=== PATIENT | male | born 1965 | race Caucasian/White ===

== ENCOUNTER 2021-02-07 21:11 | Observation (INO) | payer OTHER, SELFPAY ==
--- NOTE | ~2021-02-07 | CT_ITS ---
EXAMINATION: CT PELVIS WITHOUT CONTRAST CLINICAL INFORMATION: Distended urinary bladder on MRI lumbar spine without contrast. COMPARISON: MRI lumbar spine 02/08/2021. TECHNIQUE: Helical scanning was performed with submillimeter collimation through the pelvis. Sagittal and coronal multiplanar 2-D reconstructions were obtained. This CT examination was performed using dose optimization techniques as appropriate, variously including the following: *Automated exposure control *Adjustment of mA and/or kV according to patient size (this includes techniques or standardized protocols for targeted exams where dose is matched to indication/reason for exam; i.e. extremities or head) *Use of iterative reconstruction technique DLP: 370 mGy-cm FINDINGS: PELVIS: The bladder is moderately distended but improved since the previous MRI scan 02/09/2020. No adenopathy, mass seen. The prostate gland is normal size. No abnormal pelvic or inguinal lymph nodes. OSSEOUS STRUCTURES: There is a old compression fracture L5 vertebra with fragmentation into 2 halves. There are degenerative disc changes L4-L5 and L5/S1 disc level. CT/CT pelvis wo con IMPRESSION: Moderately distended bladder but improved since the previous MRI lumbar spine 02/08/2021.
--- NOTE | ~2021-02-07 | XR_ITS ---
EXAMINATION: CHEST. KUB. CLINICAL INFORMATION: MRI screening COMPARISON: None TECHNIQUE: Chest one view and KUB one view FINDINGS: Chest: The lungs are well-expanded and clear. The heart size and pulmonary vascularity is normal. No gross bony abnormality. No metallic foreign body. KUB. There is applying cold distended urinary bladder likely a neurogenic bladder. No radiopaque metallic foreign body seen. There is scattered stool and gas in colon consistent with mild constipation. No gross bony abnormality. XR/XR KUB IMPRESSION: No radiopaque foreign body seen in the chest or the abdomen. The lungs are clear. Likely neurogenic bladder. Mild constipation.
--- NOTE | ~2021-02-07 | CT_ITS ---
EXAMINATION: CT LUMBAR SPINE WITHOUT CONTRAST CLINICAL INFORMATION: Assess compression fractures. COMPARISON: MRI scan of the lumbar spine 02/08/2021. TECHNIQUE: A noncontrast axial CT scan of the lumbar spine was obtained. Coronal and sagittal reformatted images were generated at the acquisition workstation. This CT examination was performed using dose optimization techniques as appropriate, variously including the following: *Automated exposure control. *Adjustment of mA and/or kV according to patient size (this includes techniques or standardized protocols for targeted exams where dose is matched to indication/reason for exam; i.e. extremities or head). *Use of iterative reconstruction technique. DLP; 553 mGy-cm FINDINGS: There is mild dextroscoliosis in the upper lumbar spine and there is a levoscoliosis in the lower lumbar region. The study redemonstrates a severe compression fracture of the body of L5 which is fragmented, with anterior and posterior protrusion of the residual vertebral body elements. There is some loss of the height of the inferior vertebral body on the right of L4. There is narrowing of the L4-L5 and L5-S1 intervertebral discs. Intervertebral disc heights and the vertebral bodies appear normal at other levels. There are calcifications of the T11-T12 and T12-L1 intervertebral discs. The visualized lower lung kerns appear normal. There is a small hiatal hernia. The visualized retroperitoneal structures are unremarkable. The urinary bladder is incompletely visualized. The bladder wall appears thick and the contents are hyperdense. The density of the kidneys and renal collecting systems is normal for an unenhanced study. SPINAL LEVELS: T12-L1: There is mild bilateral facet arthropathy. Disc contour is normal. There is no central stenosis or foraminal narrowing. L1-L2: There is mild bilateral facet arthropathy. Disc contour is normal. There is no central stenosis or foraminal narrowing. L2-L3: There is mild bilateral facet arthropathy. Disc contour is normal. There is no central stenosis or foraminal narrowing. L3-L4: There is severe bilateral facet arthropathy. There is a small disc protrusion posteriorly. There is no central stenosis or foraminal nerve root impingement. L4-L5: The posterior elements of L4 appear to be dysplastic. There are severe facet arthropathic changes. As described above, there is complete compression of the body of L5 with anterior and posterior protrusion of the residual elements. There is a posterior disc protrusion extending into the right, greater than left, neural foramina with impingement on the exiting right L4 nerve root. There does not appear to be central stenosis. L5-S1: The posterior elements of L5 appear to be unfused in the midline. There is severe facet arthropathy. There is posterior protrusion of the vertebral body particularly on the right, and there is a posterior disc protrusion extending into neural foramina with impingement on the exiting left L5 nerve root. There is no central stenosis. CT/CT lumbar spine wo con IMPRESSION: 1. There is marked compression of the body of L5, demonstrated on prior imaging. The posterior elements of L4 appear to be dysplastic. 2. At L4-L5, there is a posterior disc protrusion extending into the right, greater than left, neural foramina with impingement on the exiting right L4 nerve root. 3. At L5-S1, there is posterior protrusion of the vertebral body particularly on the right and there is a posterior disc protrusion extending into the neural foramina, with impingement on the exiting left L5 nerve root. 4. There is a small hiatal hernia. The urinary bladder wall appears thick and the urinary bladder contents are hyperdense. Recommend CT scan of the pelvis for further assessment.
--- NOTE | ~2021-02-07 | MR_ITS ---
EXAMINATION: MR BRAIN WITHOUT CONTRAST CLINICAL INFORMATION: Right lower extremity weakness. COMPARISON: Head CTA 02/07/2021. TECHNIQUE: Multiplanar, multisequence imaging of the brain was performed without intravenous contrast. FINDINGS: There is no acute infarction, hemorrhage, mass, or extra-axial fluid collection. A few mild nonspecific foci of T2/FLAIR hyperintensity are seen within the cerebral white matter. A small arachnoid cyst is seen within the right cerebellomedullary cistern. The ventricles are normal in size without hydrocephalus. The major arterial flow voids are preserved at the skull base. The extracranial structures are within normal limits. MR/MR head/brain wo con IMPRESSION: No acute intracranial abnormality identified. Specifically, no infarct or mass is seen.
--- NOTE | ~2021-02-07 | XR_ITS ---
EXAMINATION: CHEST. KUB. CLINICAL INFORMATION: MRI screening COMPARISON: None TECHNIQUE: Chest one view and KUB one view FINDINGS: Chest: The lungs are well-expanded and clear. The heart size and pulmonary vascularity is normal. No gross bony abnormality. No metallic foreign body. KUB. There is applying cold distended urinary bladder likely a neurogenic bladder. No radiopaque metallic foreign body seen. There is scattered stool and gas in colon consistent with mild constipation. No gross bony abnormality. XR/XR chest 1V IMPRESSION: No radiopaque foreign body seen in the chest or the abdomen. The lungs are clear. Likely neurogenic bladder. Mild constipation.
--- NOTE | ~2021-02-07 | MR_ITS ---
EXAMINATION: MR LUMBAR SPINE WITHOUT CONTRAST CLINICAL INFORMATION: Right lower extremity weakness. COMPARISON: Lumbar spine radiograph 05/08/2018. TECHNIQUE: MRI of the lumbar spine was obtained using routine sequences without contrast. FINDINGS: There is chronic severe compression deformity of the L5 vertebral body with near complete height loss. There is both ventral and dorsal displacement of fracture fragments with associated significant distortion of the right-sided posterior elements and severe compression of the exiting right L4 nerve root. This flattening of the right aspect of the thecal sac at the L4-L5 level with hemilaminectomy changes noted. The remainder of the vertebral bodies maintain normal height and alignment. Mild Schmorl's nodes are seen at T11-T12 and T12-L1. There is no evidence of acute fracture. The distal spinal cord appears normal. The conus medullaris terminates normally at the L1 level. The extraspinal soft tissues are within normal limits. The urinary bladder is significantly distended. SPINAL LEVELS: L1-L2: Mild disc bulging. No spinal canal or neural foraminal stenosis. L2-L3: No posterior disc abnormality. No spinal canal or neural foraminal stenosis. L3-L4: Disc bulging. Moderate left facet arthropathy. Minimal narrowing of the left neural foramen. L4-L5: As above, there is severe narrowing of the right neural foramen. No spinal canal or left-sided neural foraminal stenosis. L5-S1: Posterior decompression changes. No spinal canal stenosis. Severe narrowing of the left neural foramen with compression of the exiting left L5 nerve root. MR/MR lumbar spine wo con IMPRESSION: Severe compression fracture is seen at L5 with fragmentation and displacement of the fracture fragments resulting in significant distortion at this level. Severe narrowing of the right-sided neural foramen with compression of the exiting right L4 nerve root. The lumbar spine CT may better characterize the abnormal configuration of the cervical spine at this level. At L5-S1 there is severe narrowing of the left neural foramen with compression of the exiting left L5 nerve root.
--- NOTE | ~2021-02-07 | CT_ITS ---
EXAMINATION: CT HEAD WITHOUT CONTRAST (STROKE PROTOCOL) CLINICAL INFORMATION: Stroke protocol. COMPARISON: CT head dated 05/10/2007 TECHNIQUE: Contiguous axial imaging was performed from the skull base to vertex without intravenous administration of contrast. This CT examination was performed using dose optimization techniques as appropriate, variously including the following: *Automated exposure control *Adjustment of mA and/or kV according to patient size (this includes techniques or standardized protocols for targeted exams where dose is matched to indication/reason for exam; i.e. extremities or head) *Use of iterative reconstruction technique DLP: 625 mGy-cm FINDINGS: There is no intracranial hemorrhage, hematoma, or extra-axial fluid collection. The ventricles are normal in size. There is no hydrocephalus, edema, or mass effect. The recinos-white matter differentiation appears symmetric. There is no acute infarct or mass lesion. The calvarium appears intact. There is no pneumocephalus or orbital emphysema. The visualized sinuses and middle ears and mastoid air cells show no significant mucosal thickening. There are no air-fluid levels. CT/CT head for stroke IMPRESSION: No acute intracranial pathology. This critical result was discussed with Dr Mcintyre at 2252 hours on 02.07.2021. It was ascertained that the content and urgency of the report was understood at the time of direct communication.
--- NOTE | ~2021-02-07 | CT_ITS ---
EXAMINATION: CTA OF THE HEAD/NECK CLINICAL INFORMATION: Unable to move right leg. COMPARISON: Head CT from today. TECHNIQUE: A routine non contrast head CT was performed immediately prior. This is followed by a 70 mL bolus of Omnipaque 350. Subsequent multidetector helical imaging was performed of the head and neck. Delayed post contrast imaging was also performed through the head. Multiplanar reformats and MIP were also obtained. Internal carotid artery stenoses are assessed in accordance with NASCET criteria unless otherwise indicated. This CT examination was performed using dose optimization techniques as appropriate, variously including the following: *Automated exposure control *Adjustment of mA and/or kV according to patient size (this includes techniques or standardized protocols for targeted exams where dose is matched to indication/reason for exam; i.e. extremities or head) *Use of iterative reconstruction technique DLP: 1486 mGy-cm. FINDINGS: CT HEAD: There is no evidence of acute intracranial hemorrhage or territorial infarction. No abnormal mass effect or midline shift is seen. Bear to white matter differentiation is well preserved. No extra-axial fluid collections are identified. No suspicious leptomeningeal or parenchymal enhancement on the post-contrast images. No hydrocephalus. No significant volume loss. There is no abnormal attenuation within the brain parenchyma. The osseous structures and soft tissues are normal. The mastoid air cells and visualized portions of the paranasal sinuses are well aerated. CTA NECK: Motion is somewhat limiting on this study. The aortic arch is of normal caliber and the origins of the great vessels are patent without evidence of significant stenosis. The cervical portion of the vertebral arteries are patent bilaterally. No luminal irregularities in the common carotid arteries and the carotid bifurcations are patent bilaterally. The cervical portion of the internal carotid arteries are of normal caliber. The laryngeal structures and pharyngeal mucosal spaces are unremarkable. The oral cavity appears normal. The parotid and submandibular glands are normal. No pathologically enlarged lymph nodes. The thyroid gland is unremarkable. Moderate emphysema noted at the lung apices. No pneumothorax. Spinal alignment is maintained. Mild cervical spondylosis is noted. CTA HEAD: The intradural portion of the vertebral arteries are of normal caliber. The basilar, superior cerebellar, and posterior communicating arteries are patent. The posterior, middle, and anterior cerebral arteries are of normal caliber without evidence of significant luminal irregularity. No definite intracranial aneurysms. CT/CT angio head neck stroke IMPRESSION: 1. No acute intracranial finding. 2. No acute vascular abnormality. No large vessel occlusion or flow-limiting stenosis. This critical result was discussed with Kassie Mcintyre MD by telephone at 02/07/2021 11:13 PM and it was ascertained that the content and urgency of the report was understood at the time of direct communication.
--- NOTE | 2021-02-07 22:37 | ECG_ITS ---
Test Reason : STROKE Blood Pressure : / mmHG Vent. Rate : 081 BPM Atrial Rate : 081 BPM P-R Int : 168 ms QRS Dur : 056 ms QT Int : 354 ms P-R-T Axes : 086 043 073 degrees QTc Int : 411 ms Artifact in tracing Normal sinus rhythm Likely normal EKG When compared with ECG of 02-NOV-2017 15:01, No significant change was found Referred By: Kassie Mcintyre Electronically Signed By:LATESHA SUAREZ
--- NOTE | 2021-02-07 22:39 | ED.NEUROSD ---
HPI - Neuro Symptoms/Deficit General Chief Complaint: Neuro Symptoms/Deficit Stated Complaint: RLL pain s/p fall Time Seen by Provider: 02/07/21 22:27 Source: patient and EMS Mode of arrival: EMS Limitations: no limitations History of Present Illness HPI Narrative: Patient comes to emergency room by EMS. Initially when the patient called EMS, he told them that he has chronic pain, fell. Initially EMS brought him to the triage and patient was waiting for hour and a half to be seen. Then, while patient was in the ED room, patient stated that at 08:30 p.m. he fell because he had suddenly lost mobility and sensation of his right lower extremity. Patient states he was very scared because this has never happened before, complaining that for 2 hours he has been unable to feel his entire leg or move it. Related Data Previous Rx's Medication Instructions Recorded albuterol sulfate 90 mcg/actuation 2 puff INHALATION Q6H PRN 30 Days 01/22/21 aerosol inhaler (ProAir HFA) #18 g bupropion HCl 150 mg 24 hr tablet, 150 mg PO QAM 30 Days #30 tab 01/22/21 extended release buspirone 10 mg tablet 10 mg PO BID 30 Days #60 tab 01/22/21 cyclobenzaprine 5 mg tablet 5 mg PO TID PRN 30 Days #90 tab 01/22/21 doxepin 50 mg capsule 50 mg PO BEDTIME 30 Days #30 cap 01/22/21 fluticasone 113mcg-salmeterol 1 inh INHALATION BID 30 Days #1 ea 01/22/21 14mcg/actuation breath act,powder sensor (AirDuo Digihaler) gabapentin 400 mg capsule 400 mg PO TID 30 Days #90 cap 01/22/21 umeclidinium 62.5 mcg/actuation 1 inh INHALATION DAILY 30 Days #30 01/22/21 blister powder for inhalation ea (Incruse Ellipta) Allergies Allergy/AdvReac Type Severity Reaction Status Date / Time tomato [Tomato] Allergy Severe RASH Unverified 11/06/19 14:38 [facility] Social History Social History Alcohol intake: current Alcohol intake frequency: other Alcohol type: beer Patient Tobacco Use Status: Current everyday Tobacco user Use of substances other than those prescribed or required for medical reasons: No Advance Directives: No Advance Directives Information Provided: No Physical Exam Vital Signs: Vital Signs: Last Vital Signs Temp 98.7 F 02/08/21 00:58 Pulse 72 02/08/21 00:58 Resp 20 02/08/21 00:58 BP 149/80 H 02/08/21 00:58 Pulse Ox 97 02/08/21 00:58 BMI result Body Mass Index 25.1 Course Course Course Narrative: Multiple neuro checks were done as we were preparing the patient to go to the CT scans. Patient was unable to move his left leg or unable to lift his quadricep of the table. Patient states that he cannot feel his upper thigh and the entire right leg at all. CT scan negative. I discussed the patient with Dr. Bryan. Returning to the patient to Babinski sign test, patient did not elicit any response. Then, patient informed us that he has history of chronic foot drop and he can chronically not feel his foot. However, patient is adamant that he is usually at baseline able to lift his entire leg from the bed which he is not able to do at this time. Initially, Dr. Bryan recommended to give tPA. Were preparing tPA, patient stated that the sensation in his legs returned and could move his leg. We stood up the patient, patient was able to walk with a chronic limp due to chronic foot drop on the right side. As patient got back on the bed, patient started crying, complaining that he was scared that he could not move or feel his right leg all over again. Patient denied having any sensation at all in the entire right leg. I spoke with Dr. Bryan again, at this point, this does not look like a stroke, seems that this is more anxiety related. Patient had multiple episodes after the above-mentioned incident. Patient kept going back and forth between being able to move and feel his leg and not being able to feel it at all or move his entire right lower extremity. The only neurological exam that remains constant is the right foot drop. TPA not given Of note, patient asking for anxiety medications. Also, patient was discharged from rehab/alcohol detox 2 days ago Overall, patient is a poor historian, keeps changing his history multiple times regarding to new versus old findings, questionably faking physical exam or disease being secondary to anxiety. Overall, there are no clear neurological findings and physical exam that would indicate a true stroke. This was discussed with Dr. Bryan who agrees to not give tPA at this point. Patient was given Ativan, patient is calm, cooperative, watching TV, not complaining about intermittent loss of sensation or movement of his leg Of note, I believe that the patient gave inaccurate or incomplete history to the EMS crew. Based on the information gathered at the time, EMS is not at fault for not calling over the radio a stroke alert. At this time, patient is moving his leg, has normal sensation, has his chronic footdrop present. Patient will be admitted for possible TIA/anxiety. MDM - Neuro Symptoms/Deficit Lab Data Result diagrams: 02/07/21 22:55 02/07/21 22:55 Labs: Lab Results 02/07/21 02/07/21 02/07/21 Range/Units 22:39 22:40 22:55 WBC 8.0 (4.8-10.8) X10*3/uL RBC 5.06 (4.60-5.80) X10*6/uL Hgb 15.7 (14.0-18.0) g/dl Hct 46.3 (42.0-52.0) % MCV 91.5 (80.0-98.0) fL MCH 31.0 (27.0-33.0) pg MCHC 33.9 (31.0-36.0) g/dl RDW 12.0 (11.0-16.0) % Plt Count 325 (160-400) X10*3/uL MPV 10.1 (9.4-12.4) fL Immature Gran % (Auto) 0.3 (0.0-0.4) % Neut % (Auto) 70.2 (45-73) % Lymph % (Auto) 20.1 (20-40) % [place] % (Auto) 6.9 (2-11) % Eos % (Auto) 2.0 (0-4) % Baso % (Auto) 0.5 (0-2) % Lymph # (Auto) 1.6 (1.2-4.9) X10*3/uL [place] # (Auto) 0.6 (0.1-1.2) X10*3/uL Eos # (Auto) 0.2 (0.0-0.4) X10*3/uL Baso # (Auto) 0.0 (0.0-0.2) X10*3/uL Abs Immat Gran (auto) 0.02 (0.00-0.03) X10*3/uL Absolute Neuts (auto) 5.6 (2.0-8.3) x10*3/uL Absolute Nucleated RBC 0.000 (0.0-0.012) X10*3/uL Nucleated RBC % (auto) 0.0 (0.0-0.2) /100WBC Whole Blood PT 12.7 (11.1-13.5) sec Whole Blood INR 1.1 (0.9-1.1) Sodium (135-145) mmol/L Potassium (3.3-5.1) mmol/L Chloride (96-108) mmol/L Carbon Dioxide (22-29) mmol/L Anion Gap (12-20) BUN (9-16) mg/dL Creatinine (0.5-1.4) mg/dL Estim Creat Clear Calc Estimated GFR POC Glucose 110 (60-115) mg/dL Random Glucose (60-115) mg/dL Calcium (8.4-10.2) mg/dL Total Bilirubin (0.0-1.0) mg/dL Direct Bilirubin (0.0-0.5) mg/dL AST (5-37) U/L ALT (0-40) U/L Alkaline Phosphatase (39-117) U/L Troponin I High Sens (<3.5-35.0) ng/L Total Protein (6.5-8.0) g/dL Albumin (3.5-5.0) g/dL 02/07/21 02/07/21 Range/Units 22:55 22:55 WBC (4.8-10.8) X10*3/uL RBC (4.60-5.80) X10*6/uL Hgb (14.0-18.0) g/dl Hct (42.0-52.0) % MCV (80.0-98.0) fL MCH (27.0-33.0) pg MCHC (31.0-36.0) g/dl RDW (11.0-16.0) % Plt Count (160-400) X10*3/uL MPV (9.4-12.4) fL Immature Gran % (Auto) (0.0-0.4) % Neut % (Auto) (45-73) % Lymph % (Auto) (20-40) % [place] % (Auto) (2-11) % Eos % (Auto) (0-4) % Baso % (Auto) (0-2) % Lymph # (Auto) (1.2-4.9) X10*3/uL [place] # (Auto) (0.1-1.2) X10*3/uL Eos # (Auto) (0.0-0.4) X10*3/uL Baso # (Auto) (0.0-0.2) X10*3/uL Abs Immat Gran (auto) (0.00-0.03) X10*3/uL Absolute Neuts (auto) (2.0-8.3) x10*3/uL Absolute Nucleated RBC (0.0-0.012) X10*3/uL Nucleated RBC % (auto) (0.0-0.2) /100WBC Whole Blood PT (11.1-13.5) sec Whole Blood INR (0.9-1.1) Sodium 139 (135-145) mmol/L Potassium 4.5 (3.3-5.1) mmol/L Chloride 107 (96-108) mmol/L Carbon Dioxide 24 (22-29) mmol/L Anion Gap 13 (12-20) BUN 10 (9-16) mg/dL Creatinine 0.81 (0.5-1.4) mg/dL Estim Creat Clear Calc 106.3 Estimated GFR > 60 POC Glucose (60-115) mg/dL Random Glucose 108 (60-115) mg/dL Calcium 9.3 (8.4-10.2) mg/dL Total Bilirubin 0.5 (0.0-1.0) mg/dL Direct Bilirubin 0.2 (0.0-0.5) mg/dL AST 23 (5-37) U/L ALT 32 (0-40) U/L Alkaline Phosphatase 69 (39-117) U/L Troponin I High Sens < 3.5 (<3.5-35.0) ng/L Total Protein 7.1 (6.5-8.0) g/dL Albumin 4.3 (3.5-5.0) g/dL NIH Stroke Scale Level of Consciousness: Alert Level of Consciousness Questions: Answers both questions correctly Level of Consciousness Commands: Performs both tasks correctly Best Gaze: Normal Visual: No visual loss Facial Palsy: Normal Motor Arm (Right): No drift Motor Arm (Left): No drift Motor Leg (Right): No drift Motor Leg (Left): No effort against gravity Limb Ataxia: Absent Sensory: Mild to moderate sensory loss Best Language: No aphasia Dysarthia: Normal Extinction and Inattention: No abnormality Score: 4 Discharge Plan Discharge Clinical Impression: Transient cerebral ischemia Patient Disposition: Admitted As Inpatient
[2021-02-07 22:41] VITALS: BP 138/88; PULSE 80; RESP 20; O2SAT 99; BMI 25.1
[2021-02-07 22:49] LABS: Prothrombin Time Whole Bld POC 12.7 sec (11.1-13.5); ~PT, ~INR - Anti Coag Clinic 1.1 (0.9-1.1)
[2021-02-07 22:53] LABS: Glucose, Whole Blood 110 mg/dL (60-115)
[2021-02-07 23:01] LABS: MANUAL DIFF FLAG NO
[2021-02-07] MEDS: iohexoL 350 MG/ML 100 ML INFUS..BTL 70 ML IV (23:01)
[2021-02-07 23:03] LABS: Basophils Percent Auto 0.5 % (0-2); Eosinophils Absolute Auto 0.2 X10*3/uL (0.0-0.4); Hematocrit 46.3 % (42.0-52.0); Hemoglobin 15.7 g/dl (14.0-18.0); Imm Gran Abs Auto 0.02 X10*3/uL (0.00-0.03); Imm Gran Pct Auto 0.3 % (0.0-0.4); Lymphocytes Absolute Auto 1.6 X10*3/uL (1.2-4.9); Lymphocytes Percent Auto 20.1 % (20-40); Mean Corpuscular HGB Conc 33.9 g/dl (31.0-36.0); Mean Corpuscular Volume 91.5 fL (80.0-98.0); Mean Platelet Volume 10.1 fL (9.4-12.4); Monocytes Absolute Auto 0.6 X10*3/uL (0.1-1.2); Monocytes Percent Auto 6.9 % (2-11); Neutrophils Absolute Auto 5.6 x10*3/uL (2.0-8.3); Neutrophils Percent Auto 70.2 % (45-73); Platelet Count 325 X10*3/uL (160-400); Red Blood Count 5.06 X10*6/uL (4.60-5.80)
--- NOTE | 2021-02-07 23:09 | PC.NURSE ---
pt a&o, no sob or chest pain. pt has a left foot drop that is his base line. pt able to respond to question correctly. pt has clear speech pt able to bend knees. pt able to walk with assist. provider is aware, Ekg.
[2021-02-07 23:18] LABS: Alanine Aminotransferase 32 U/L (0-40); Albumin Level 4.3 g/dL (3.5-5.0); Alkaline Phosphatase 69 U/L (39-117); Anion Gap 13 (12-20); Aspartate Amino Transferase 23 U/L (5-37); Bilirubin Direct 0.2 mg/dL (0.0-0.5); Bilirubin Total 0.5 mg/dL (0.0-1.0); Blood Urea Nitrogen 10 mg/dL (9-16); Calcium 9.3 mg/dL (8.4-10.2); Carbon Dioxide 24 mmol/L (22-29); Chloride 107 mmol/L (96-108); Creatinine Clr Calc Pharmacy 106.3; Estimated Glomerular Filt Rate > 60; Glucose Random 108 mg/dL (60-115); Potassium 4.5 mmol/L (3.3-5.1); Sodium 139 mmol/L (135-145); Total Protein 7.1 g/dL (6.5-8.0)
--- NOTE | 2021-02-07 23:20 | PC.NURSE ---
pt goes back and for stating he can't from right leg, however when told bend leg pt was able too. pt is at able baseline.
--- NOTE | 2021-02-07 23:24 | PC.NURSE ---
pt using remote with his right hand.
[2021-02-07 23:27] LABS: Troponin-I High Sensitivity < 3.5 ng/L (<3.5-35.0)
[2021-02-07 23:31] VITALS: BP 132/88; PULSE 71; RESP 20; O2SAT 97
[2021-02-08] VITALS (10 sets, daily range): BP systolic 107–149; BP diastolic 57–82; PULSE 68–81; RESP 17–20; TEMP 36.6–37.1; O2SAT 96–100
[2021-02-08] MEDS: LORazepam 1 MG TABLET 2 MG PO (00:23)
--- NOTE | 2021-02-08 00:24 | PC.NURSE ---
medicated pt per apr. pt moving extremities with [place] flexion intact. cms and pedal pulses present.
--- NOTE | 2021-02-08 01:17 | PC.NURSE ---
PATIENT REQUESTED FOOD AND SOMETHING TO EAT ,HAD A TUNA SANDWICH AND YINKA TARAN .
[2021-02-08 01:37] LABS: COVID-19 Test Negative (Negative); IDNOW Serial# 9DD0AD1C
--- NOTE | 2021-02-08 02:29 | PM.IMHP ---
History of Present Illness Date of Service: 02/08/21 Chief Complaint: Right lower extremity weakness 55-year-old male with a past medical history of anxiety, depression, history of right footdrop for many years, history of right foot numbness for many years; presented to the hospital today with a chief complaint of acute onset of unable to use his right lower extremity. Mentions that he has a chronic right footdrop; but today he was not able to use his right lower extremity around the hips and knees; symptoms lasted for few minutes; subsequently came to the ER for further evaluation. Denies any fall or trauma. Denies any low back pain. Denies any stool incontinence or urinary retention. Denies any chest pain palpitations lightheadedness or dizziness. Denies any fever chills cough. Mentioned that he still smokes cigarettes. At the time of my interview patient reports that his symptoms are resolved and denies any right lower extremity weakness except for his chronic right footdrop. Review of all other systems is negative except mentioned above ER course: Per ER team patient initially on presentation was not able to urine his right lower extremity; completely flaccid; CT head showed no acute findings; discussed with neurology on-call and plan to give tPA, while it is being prepared patient's symptoms resolved and has never received tPA. While in the ER for the course of the time patient had waxing and waning symptoms which finally resolved. ER team did not notice any deficits otherwise. Admitted to the hospital for further management/MRI brain as recommended by the Neurology. [facility] Pertinent family history: Reviewed, patient unable to provide information Social History Alcohol intake: current Alcohol intake frequency: other Alcohol type: beer Patient Tobacco Use Status: Current everyday Tobacco user Use of substances other than those prescribed or required for medical reasons: No Advance Directives: No Advance Directives Information Provided: No Meds Allergies Allergy/AdvReac Type Severity Reaction Status Date / Time tomato [Tomato] Allergy Severe RASH Unverified 11/06/19 14:38 Active Medications: Current Medications Acetaminophen (Acetaminophen 325 Mg Tablet) 650 mg PO Q6H PRN PRN Reason: Pain, Mild (Pain Scale 1-3) Melatonin (Melatonin 3 Mg Tablet) 6 mg PO BEDTIME PRN PRN Reason: Insomnia Sodium Chloride (0.9 % Sodium Chloride Flush 3 Ml Syringe) 3 ml IVFLUSH QSHIFT STANISLAV Physical Exam Vital Signs and Narrative: Vital Signs: Last Vital Signs Temp 98.7 F 02/08/21 00:58 Pulse 72 02/08/21 00:58 Resp 20 02/08/21 00:58 BP 149/80 H 02/08/21 00:58 Pulse Ox 97 02/08/21 00:58 BMI result Body Mass Index 25.1 Gen: Appears be in no acute distress HEENT: NCAT, Moist mucosa. Pulmonary: Vesicular breath sounds, fair air entry CVS: Normal S1-S2 Abdomen: BS+, Soft, Nontender Extremities: Warm well perfused Neuro: Alert and awake.; strength and sensations normal on the left side. Strength is 5/5 in the right upper extremity, strength is 5/5 on the right lower extremity at the hips and knees. PositiveRight foot drop and decreased sensation on the right foot-chronic Results Labs CBC and Chem 7: 02/07/21 22:55 02/07/21 22:55 Labs: Laboratory Results - last 24 hr 02/07/21 02/07/21 02/07/21 22:39 22:40 22:55 MCV 91.5 MCH 31.0 MCHC 33.9 RDW 12.0 Plt Count 325 MPV 10.1 Immature Gran % (Auto) 0.3 Neut % (Auto) 70.2 Lymph % (Auto) 20.1 [place] % (Auto) 6.9 Eos % (Auto) 2.0 Baso % (Auto) 0.5 Lymph # (Auto) 1.6 [place] # (Auto) 0.6 Eos # (Auto) 0.2 Baso # (Auto) 0.0 Abs Immat Gran (auto) 0.02 Absolute Neuts (auto) 5.6 Absolute Nucleated RBC 0.000 Nucleated RBC % (auto) 0.0 Whole Blood PT 12.7 Whole Blood INR 1.1 Anion Gap Estim Creat Clear Calc Estimated GFR POC Glucose 110 Random Glucose Calcium Total Bilirubin Direct Bilirubin AST ALT Alkaline Phosphatase Troponin I High Sens Total Protein Albumin COVID-19 (ANDRA) COVID-19 Clin Com 02/07/21 02/07/21 02/08/21 22:55 22:55 01:16 MCV MCH MCHC RDW Plt Count MPV Immature Gran % (Auto) Neut % (Auto) Lymph % (Auto) Prairie % (Auto) Eos % (Auto) Baso % (Auto) Lymph # (Auto) [place] # (Auto) Eos # (Auto) Baso # (Auto) Abs Immat Gran (auto) Absolute Neuts (auto) Absolute Nucleated RBC Nucleated RBC % (auto) Whole Blood PT Whole Blood INR Anion Gap 13 Estim Creat Clear Calc 106.3 Estimated GFR > 60 POC Glucose Random Glucose 108 Calcium 9.3 Total Bilirubin 0.5 Direct Bilirubin 0.2 AST 23 ALT 32 Alkaline Phosphatase 69 Troponin I High Sens < 3.5 Total Protein 7.1 Albumin 4.3 COVID-19 (ANDRA) Negative COVID-19 Clin Com See Note Imaging Radiologist's Impressions: Impressions Head CT 02/07/21 22:43 IMPRESSION: No acute intracranial pathology. This critical result was discussed with Dr Mcintyre at 2252 hours on 02.07.2021. It was ascertained that the content and urgency of the report was understood at the time of direct communication. Head/Neck CTA 02/07/21 22:59 IMPRESSION: 1. No acute intracranial finding. 2. No acute vascular abnormality. No large vessel occlusion or flow-limiting stenosis. This critical result was discussed with Kassie Mcintyre MD by telephone at 02/07/2021 11:13 PM and it was ascertained that the content and urgency of the report was understood at the time of direct communication. Assessment and Plan 55-year-old male with a past medical history of anxiety, depression, history of right footdrop for many years, history of right foot numbness for many years; presented to the hospital today with a chief complaint of acute onset of unable to use his right lower extremity. Acute transient right upper extremity weakness: Currently resolved. Patient has good strength on the right hip flexors and extensors, knee flexors and extensors. Has chronic right footdrop. Patient denies any low back pain, fall. No red flag signs noted. Neurology was made aware, recommended MRI. Will obtain brain MRI and lumbar spine MRI. Neurology consult PT/OT History of anxiety/depression: Continue home medications bupropion, Eligio sprain, doxepin. DVT prophylaxis: SCD boots Code status: Full code Quality Stroke Does the patient have a stroke diagnosis?: No VTE Prior VTE?: No VTE Risk Level:: Medical - moderate - high VTE Device Contraindication: N/A - Device Ordered VTE Drug Contraindication: Treatment Not Indicated
--- NOTE | 2021-02-08 03:34 | PC.NURSE ---
pt is sleeping at this time. no sign of distress.
--- NOTE | 2021-02-08 06:05 | PC.NURSE ---
neuro intact, no slurred speach, no sign of distress at this time. Will continue to monitor.
[2021-02-08 07:26] LABS: MANUAL DIFF FLAG NO
[2021-02-08] MEDS: 0.9 % Sodium Chloride Flush 3 ML SYRINGE IVFLUSH ×2 (07:36→15:56)
[2021-02-08 07:40] LABS: Basophils Percent Auto 0.3 % (0-2); Eosinophils Absolute Auto 0.2 X10*3/uL (0.0-0.4); Eosinophils Percent Auto 2.3 % (0-4); Hematocrit 44.4 % (42.0-52.0); Hemoglobin 14.8 g/dl (14.0-18.0); Imm Gran Abs Auto 0.01 X10*3/uL (0.00-0.03); Imm Gran Pct Auto 0.1 % (0.0-0.4); Lymphocytes Absolute Auto 1.6 X10*3/uL (1.2-4.9); Lymphocytes Percent Auto 23.6 % (20-40); Mean Corpuscular HGB Conc 33.3 g/dl (31.0-36.0); Mean Corpuscular Hemoglobin 30.6 pg (27.0-33.0); Mean Corpuscular Volume 91.7 fL (80.0-98.0); Monocytes Absolute Auto 0.5 X10*3/uL (0.1-1.2); Monocytes Percent Auto 7.6 % (2-11); Neutrophils Absolute Auto 4.5 x10*3/uL (2.0-8.3); Neutrophils Percent Auto 66.1 % (45-73); Platelet Count 301 X10*3/uL (160-400); Red Blood Count 4.84 X10*6/uL (4.60-5.80); White Blood Count 6.8 X10*3/uL (4.8-10.8)
--- NOTE | 2021-02-08 08:07 | PC.NURSE ---
pt is ambulating with physical therapy.
[2021-02-08 08:19] LABS: Anion Gap 9 (12-20); Blood Urea Nitrogen 11 mg/dL (9-16); Carbon Dioxide 26 mmol/L (22-29); Chloride 108 mmol/L (96-108); Creatinine Clr Calc Pharmacy 101.3; Estimated Glomerular Filt Rate > 60; Glucose Random 118 mg/dL (60-115); Potassium 4.1 mmol/L (3.3-5.1); Sodium 139 mmol/L (135-145)
[2021-02-08] MEDS: busPIRone HCl 10 MG TABLET PO ×2 (09:26→20:29)
[2021-02-08] MEDS: buPROPion HCl XL 150 MG TAB.ER.24H PO (09:26)
[2021-02-08] MEDS: Acetaminophen 325 MG TABLET 650 MG PO (12:58)
--- NOTE | 2021-02-08 13:23 | PC.NURSE ---
rn to rn given to dante pt transferred to ed overflow
--- NOTE | 2021-02-08 14:02 | PC.NURSE ---
pt's daughter valeria called, this rn was given permission to speak to her by the pt and updated her about pt's plan the daughter would like to get contacted if any changes occur or any questions phone number [phone]
--- NOTE | 2021-02-08 14:07 | PHA.MEDREC ---
Pharmacy Consult ? Medication Reconciliation Pharmacy has completed the medication reconciliation. Patient is not the best historian. Patient unsure about which inhaler he takes. Most recently filled is albuterol and incruse. Reports bupirone 10 mg QHS however prescribed for 10 mg BID. Completed list by his reports medications and compared them to the claim history. Hafsa Nguyen, RomeoD
--- NOTE | 2021-02-08 14:29 | PC.NURSE ---
pt of to mri
--- NOTE | 2021-02-08 14:58 | MHC.CM.PN ---
pt reports that he lives c a friend. he says he is independent in his care, but he does have friends and family that live in the area and can help him if he needs it. he has no svcs at home and does not use any AD c ambulation and he drives a car. pt will have one of his friend provide transportation at dc. pt denies the need for vna at dc. dc plan is home no svcs. cm to cont. to follow.
--- NOTE | 2021-02-08 15:57 | PC.NURSE ---
pt back from mri. pt alert and oriented, skin pwd, respirations even and unlabored, no visible drift at this time, hand grasp equal,no facial droop, vs stable
--- NOTE | 2021-02-08 17:10 | P.EN_ITS ---
Event Note Date of Service: 02/08/21 Event Note: I personally saw and examined the patient, who complaint of some b ack pain, foot drop, poor historian. MRI completed shows L5 compression fracture, no acute stroke. Will request kyphoplasty for tomorrow and Neuro to see patient
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
--- NOTE | 2021-02-08 19:30 | PC.NURSE ---
Assumed care of pt Pt resting on stretcher AxO x 4, clear and complete sentences Moving all extremities with full ROM No apparent distress Will continue to monitor
[2021-02-08] MEDS: Doxepin HCl 25 MG CAPSULE 50 MG PO (20:29)
--- NOTE | 2021-02-08 22:45 | PC.NURSE ---
Pt medicated per MAR Pt tolerated well Will continue to monitor
[2021-02-08] MEDS: Melatonin 3 MG TABLET 6 MG PO (22:51)
--- NOTE | 2021-02-08 23:00 | PC.NURSE ---
Pt requesting sleep aid Pt medicated per MAR Will continue to monitor
[2021-02-09] VITALS (8 sets, daily range): BP systolic 109–137; BP diastolic 39–72; PULSE 61–83; RESP 16–24; TEMP 36.1–36.8; O2SAT 95–97; BMI 25.1
[2021-02-09] MEDS: 0.9 % Sodium Chloride Flush 3 ML SYRINGE IVFLUSH ×3 (08:02→23:55)
[2021-02-09] MEDS: buPROPion HCl XL 150 MG TAB.ER.24H PO (08:02)
[2021-02-09] MEDS: busPIRone HCl 10 MG TABLET PO ×2 (08:02→20:14)
--- NOTE | 2021-02-09 08:05 | PC.NURSE ---
Pt A&Ox3, LCA, lying in bed at this time, self repositioned, questing dispo at this time, told pt MD will round soon. NSR on monitor, VS as charted, medicated as per MAR orders. Call acuña within reach, will continue to monitor.
--- NOTE | 2021-02-09 12:39 | PC.NURSE ---
Pt sleeping at this time, NPO, plan for IR for procedure to L5. Awaiting IR call for pt. Pt NSR on monitor. Will continue to monitor.
[2021-02-09 13:28] LABS: Glucose, Whole Blood 100 mg/dL (60-115)
--- NOTE | 2021-02-09 19:18 | PC.NURSE ---
Admission assessment completed byt this RN.
[2021-02-09] MEDS: Doxepin HCl 25 MG CAPSULE 50 MG PO (20:14)
[2021-02-09] MEDS: Melatonin 3 MG TABLET 6 MG PO (20:14)
[2021-02-10 03:20] VITALS: BMI 25.1
[2021-02-10 04:00] VITALS: BP 113/55; PULSE 61; RESP 18; TEMP 36; O2SAT 95
[2021-02-10 07:19] VITALS: BP 103/58; PULSE 67; RESP 10; TEMP 36.4; O2SAT 95
[2021-02-10] MEDS: buPROPion HCl XL 150 MG TAB.ER.24H PO (09:01)
[2021-02-10] MEDS: 0.9 % Sodium Chloride Flush 3 ML SYRINGE IVFLUSH (09:01)
[2021-02-10] MEDS: busPIRone HCl 10 MG TABLET PO (09:01)
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
--- NOTE | 2021-02-10 10:23 | MHC.CM.PN ---
PT MEDICALLY CLEARED FOR D/C HOME SELF-CARE, FRIEND FOR TRANSPORT.
[2021-02-10 11:39] VITALS: BP 100/52; PULSE 83; RESP 18; TEMP 36.4; O2SAT 96
== END 2021-02-10 15:25 | disposition home or self-care (01) ==
LOC: HO.ED 02-08 01:04 → HO.EDOVER 02-08 02:35 → HO.S3 02-09 22:11
PROVIDERS: Admitting Provider Hospitalist; Emergency Provider Emergency Medicine; PCP Internal Medicine; Visit Provider Internal Medicine
DX: M54.16 Radiculopathy, lumbar region (principal); M21.371 Foot drop, right foot; R20.0 Anesthesia of skin; R26.9 Unspecified abnormalities of gait and mobility; M62.561 Muscle wasting and atrophy, not elsewhere classified, right lower leg; F17.210 Nicotine dependence, cigarettes, uncomplicated; Z20.822 Contact with and (suspected) exposure to COVID-19; Z87.828 Personal history of other (healed) physical injury and trauma; Z91.018 Allergy to other foods; Z79.899 Other long term (current) drug therapy
CPT/HCPCS: 36415; 70450; 70496; 70498; 70551; 71045; 72131; 72148; 72192; 74018; 80048; 80076; 82947; 84484; 85025; 85610; 87635; 93005; 97161; 97165; 99218; 99285; Q9967

== ENCOUNTER 2022-10-13 13:45 | Outpatient (AMB) | payer OTHER, SELFPAY ==
[2022-10-13 13:55] VITALS: BP 132/80; PULSE 97; O2SAT 96; BMI 23.9
--- NOTE | 2022-10-13 13:55 | MHC.PC.OV ---
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 Accompanied by: Self / Same As Patient Allergies tomato [Tomato] Allergy (Severe, Verified 10/15/22 09:37) RASH Medication List - Last Reconciled 10/15/22 by Jack Santo MD bupropion HCl 150 mg PO QAM buspirone 10 mg PO BID cyclobenzaprine 5 mg PO TID PRN doxepin 50 mg PO BEDTIME gabapentin 600 mg PO TID 30 days [LUMBAR BACK BRACE Use as directed for increasing low back pain] umeclidinium 62.5 mcg/actuation (Incruse Ellipta) 1 inh inhalation BEDTIME 30 days Ventolin HFA 90 mcg/actuation (albuterol sulfate) 2 puffs inhalation Q6H PRN 30 days NS Tobacco use date assessed: 10/13/22 Dental Screening Dental Screen Date: 10/13/22 Did you have a dental visit in the last 12 months?: Yes Did you have a dental problem in the last 6 months where you did not have access to dental care?: No Was dental information given to patient?: Patient has dentist HPI 4 month f/u HPI Details Patient comes in today for his follow up visit States that he has been experiencing increasing pain over his lower back for a few months now and that his current meds do not help much at this point States that the pain still radiates into his right leg often and his right leg feels weak at times Would like to see if he can get an Rx for a back brace to help alleviate his low back pain somewhat Adds that he has been experiencing increasing pain over his left ankle for the past few weeks Does not recall any recent injury or trauma to his left ankle He denies any headaches or dizziness Denies any chest pains, no increased SOB No nausea/vomiting, no abdominal pain No change in bowel habits noted Also needs several of his Rx refilled He has not been able to get any of his follow up labs done recently and has not had follow up labs done since January 2019 Would also like to see if he can get a referral to see a foot doctor for his toenails - states that several of his toenails have gotten very thick and disfigured and he no longer is able to trim, clip and clean them on his own [facility] Medical History Anxiety Compression fracture of lumbosacral spine COPD (chronic obstructive pulmonary disease) GERD without esophagitis Lumbar degenerative disc disease Right foot drop Smoker Surgical History History of ankle surgery Previous back surgery Family History Father Lung cancer Mother HTN (hypertension) Diabetes Social History Household Members: Friend(s) Housing: Apartment Do you presently have visiting nurse or other home services: No Alcohol intake: former Patient Tobacco Use Status: Current everyday Tobacco user Tobacco use type: Cigarette Cigarette Packs Per Day: 2.5 e-Cigarette/Vaping Use: Never Used Second Hand Smoke Exposure: Yes service: No Current occupational status: disabled Cognitive needs: No Hearing needs: No Vision needs: No Questionnaire PHQ-9 Over the last 2 weeks, how often have you been bothered by any of the following problems? 1. Little interest or pleasure in doing things: not at all 2. Feeling down, depressed, or hopeless: not at all 3. Trouble falling or staying asleep, or sleeping too much: not at all 4. Feeling tired or having little energy: not at all 5. Poor appetite or overeating: not at all 6. Feeling bad about yourself - or that you are a failure or have let yourself or your family down: not at all 7. Trouble concentrating on things, such as reading the newspaper or watching television: not at all 8. Moving or speaking so slowly that other people could have noticed. Or the opposite - being so fidgety or restless that you have been moving around a lot more than usual: not at all 9. Thoughts that you would be better off or of hurting yourself in some way: not at all Total score: 0 Depression Screening Interpretation: Negative [id number] - PHQ-9 Billing: Yes Source: Developed by Drs. Eleuterio Henriquez, Ruthy Mares, Santi Madison and colleagues, with an educational robert from [employer]. Thrive Questionnaire Date Thrive assessed: 10/13/22 I am a: Patient What is your living situation today?: I have a steady place to live Within the past 12 months, did the food you bought not last and you didn't have the money to get more?: Never true Within the past 12 months, did you worry whether your food would run out before you got money to buy more?: Never true Do you have trouble paying for medicines?: No Do you have trouble getting transportation to medical appointments?: No Do you have trouble paying your heating and electricity bill?: No Do you have trouble taking care of your child, family member or friend?: No Do you have trouble with day-to-day activities such as bathing, preparing meals, shopping, managing finances, etc.?: No Are you currently unemployed and looking for a job?: No Are you interested in more education?: No Please select the resources that you would like help with: None Currently or been in a relationship where the following occur: no concerns reported AUDIT C Alcohol Use Questionnaire (AUDIT-C) 1. How often do you have a drink containing alcohol?: Never 3. How often do you have six or more drinks on one occasion?: Never Total Score: 0 Score Reviewed/Action Taken: Yes KATIANA-7 AMB Questionnaire KATIANA-7 Date KATIANA - 7 assessed: 10/13/22 Feeling nervous, anxious, or on edge: 3 = Nearly every day Not being able to stop or control worryin = Nearly every day Worrying too much about different things: 3 = Nearly every day Trouble relaxin = Nearly every day Being so restless that it is hard to sit still: 3 = Nearly every day Becoming easily annoyed or irritable: 3 = Nearly every day Feeling afraid as if something awful might happen: 3 = Nearly every day Total KATIANA-7 score (0-4 normal; 5-9 mild; 10-14 moderate; 15-21 severe): 21 Source: Developed by Drs. Eleuterio Henriquez, Ruthy Mares, Santi Madison and colleagues, with an educational robert from [employer]. Review of Systems Const Denies chills, Reports fatigue, Denies fever(s) and Denies headache(s) ENT Denies dysphagia, Denies dizziness, Denies otalgia, Denies headache(s), Denies odynophagia and Denies sore throat Card Denies chest pain, Denies palpitations and Reports dyspnea on exertion (mild; increased when he has coughing spells ) Resp Reports chest congestion (mild, chronic (smoker); feels somewhar tight when coughing), Reports cough (on and off), Denies pain with cough and Reports dyspnea on exertion (mild; increased when he has coughing spells ) GI Denies abdominal pain, Denies constipation, Denies dysphagia, Denies heartburn, Denies diarrhea, Denies nausea, Denies odynophagia and Denies vomiting Denies dysuria, Denies nocturia and Denies urinary frequency Musc Reports back pain (lower back - chronic but increasing lately), Reports arthralgias (left ankle - increasing lately), Denies joint swelling and Reports radiating pain into limb (into right leg (chronic)) Skin/Breast Details: (+) severely thickened and disfigured toenails over multiple toes on both feet Denies rash Neuro Denies dizziness and Denies headache(s) Psych Reports anxiety Endo Reports fatigue and Denies palpitations Physical exam (Primary Care) Vital Signs: Last Vital Signs Pulse 97 10/13/22 13:55 BP 132/80 10/13/22 13:55 Pulse Ox 96 10/13/22 13:55 Oxygen Delivery Method Room Air 10/13/22 13:55 BMI result Body Mass Index 23.9 Tobacco/Smoking Status: Tobacco use Status Tobacco use date assessed 10/13/22 10/13/22 13:59 Patient Tobacco Use Status Current everyday Tobacco 10/13/22 13:59 Tobacco use type Cigarette 10/13/22 13:59 e-Cigarette/Vaping Use Never Used 10/13/22 13:59 PHQ-9: PHQ-9 Score PHQ-9: Total score 0 10/13/22 14:46 Depression Screening Interpretation: Negative Thrive Assessment: Date of Thrive Assessment Date Thrive assessed 10/13/22 10/13/22 13:59 Currently or been in a relationship where the following occur: no concerns reported Const General: no acute distress and alert HENMT Ears: TM's normal bilaterally and EAC's normal Throat: Yes posterior oropharynx normal and Yes tonsils normal (no TP congestion) Neck Neck: Yes no lymphadenopathy and Yes supple Thyroid: Thyroid normal Resp Auscultation: no rales, rhonchi (diminished breath sounds with scattered rhonchi bilaterally), no wheezes and diminished lung sounds Cardio Rate: regular rate Rhythm: regular rhythm Heart sounds: no murmurs GI Palpation (GI): Soft to palpation and nontender Auscultation: normal bowel sounds Back/Spine/Pelvis Thoracic/Lumbar Spine: lumbar spinal tenderness and straight leg raise positive (with (+) chronic right foot drop) Skin Rashes: no rashes Extrem General: Yes no clubbing, cyanosis or edema Left lower extremity: ankle Details: tenderness (especially around the lateral malleolar area and adjacent the heel); no swelling Assessment and Plan Assessment & Plan (1) COPD (chronic obstructive pulmonary disease): Code(s): J44.9 - Chronic obstructive pulmonary disease, unspecified Qualifiers: COPD type: unspecified COPD Qualified Code(s): J44.9 - Chronic obstructive pulmonary disease, unspecified Plan: Stable Continue Incruse Ellipta 62.5 mcg 1 inhalation QD and Albuterol HFA 2 inhalations every 6 hours as needed Offered again to refer him to pulmonary for further evaluation and management but he continues to decline - does not feel that he needs to see a specialist at this time (2) Hypercholesterolemia: Code(s): E78.00 - Pure hypercholesterolemia, unspecified Plan: Reinforced low cholesterol diet Advised again that we have NEVER been able to get his fasting lipid profile checked even though we have ordered it multiple times over the past several years; he had a spot cholesterol level done back in 1996 that showed up at 204 mg/dl and we have never been able to look into this further since Stressed again that he needs to get his labs done AMY (reordered) so we can determined how his cholesterol levels actually are and what we need to do based on his results (3) Lumbar degenerative disc disease: Comment: Most recent lumbar spine CT done on 02/09/2021 revealed (+) multilevel facet arthritis and degenerative disc changes, with a complete compression fracture of L5 -- patient sustained a crush injury to his lumbar spine in 1982 Code(s): M51.36 - Other intervertebral disc degeneration, lumbar region Plan: Lumbar spine MRI last done on 02/08/2021 revealed severe compression fracture at L5 with fragmentation and displacement of the fragments resulting in significant distortion at this level. There is also severe narrowing of the right neural foramen with compression of the exiting right L4 nerve root, likely resulting in his right foot drop Will also refer him to the [facility] here at [facility] for neurosurgical evaluation and management, especially with his increasing low back pain lately Reinforced activity and weight-lifting restrictions Continue Cyclobenzaprine 5 mg TID; will increase his Gabapentin now to 600 mg TID Per request, will provide him with Rx for a lumbar back brace (4) Right foot drop: Comment: chronic Code(s): M21.371 - Foot drop, right foot Plan: No intervention is indicated at this time but will see what neurosurgery recommends once he is seen at the Sp[facility] - referral done (5) GERD without esophagitis: Code(s): K21.9 - Gastro-esophageal reflux disease without esophagitis Plan: Dietary restrictions reinforced Patient used to take Omeprazole 20 mg QD but states that he has not had to take Rx in a while now and has not had any flare up of his symptoms lately (6) Onychomycosis: Code(s): B35.1 - Tinea unguium Plan: Will refer him to podiatry for further evaluation and management (7) Left ankle pain: Code(s): M25.572 - Pain in left ankle and joints of left foot Qualifiers: Chronicity: unspecified Qualified Code(s): M25.572 - Pain in left ankle and joints of left foot Plan: Will send him for x-rays of the left ankle for further evaluation Advised that depending on how his x-rays come out, we may also need him to see podiatry for this issue (8) Anxiety: Code(s): F41.9 - Anxiety disorder, unspecified Plan: Continue Bupropion SR 150 mg Q AM, Buspirone 10 mg BID and Doxepin 50 mg Q HS (9) Smoker: Code(s): F17.200 - Nicotine dependence, unspecified, uncomplicated Plan: Counseled again to continue attempts at smoking cessation Plan Follow up in 4 months Orders: Orders XR ankle LT min 3V 10/13/22 M25.572 - Pain in left ankle and joints of left foot Complete Blood Count Auto Diff 10/13/22 I10 - Essential (primary) hypertension Comprehensive Otho. Panel Fast 10/13/22 E78.00 - Pure hypercholesterolemia, unspecified Lipid Panel 10/13/22 E78.00 - Pure hypercholesterolemia, unspecified TSH reflex Free T4 10/13/22 E78.00 - Pure hypercholesterolemia, unspecified UA CC w/rflx Micro + Cult 10/13/22 R30.0 - Dysuria Vitamin D 25-OH Total 10/13/22 E55.9 - Vitamin D deficiency, unspecified Referrals Neurosurgery Referral M51.36 - Other intervertebral disc degeneration, lumbar region Podiatry Referral B35.1 - Tinea unguium Medications: New gabapentin 600 mg PO TID 30 days 90 tabs 3RF [LUMBAR BACK BRACE] Use as directed for increasing low back pain 1 ea 0RF M51.36 - Other intervertebral disc degeneration, lumbar region [LUMBAR BACK BRACE] Use as directed for increasing low back pain 1 ea 0RF M51.36 - Other intervertebral disc degeneration, lumbar region Refilled umeclidinium 62.5 mcg/actuation (Incruse Ellipta) 1 inh inhalation BEDTIME 30 days 30 ea 3RF Ventolin HFA 90 mcg/actuation (albuterol sulfate) 2 puffs inhalation Q6H 30 days PRN 18 grams 3RF shortness of breath or wheezing NS doxepin 50 mg PO BEDTIME 30 caps 1RF cyclobenzaprine 5 mg PO TID PRN 90 tabs 1RF for muscle spasm bupropion HCl 150 mg PO QAM 30 tabs 1RF buspirone 10 mg PO BID 60 tabs 1RF Discontinued gabapentin Discontinued Reason: Doctor's Order 400 mg PO TID 90 caps 1RF Coding Level of Care Code Est Pt Level 4 (55377) Diagnoses COPD (chronic obstructive pulmonary disease) J44.9 COPD type: unspecified COPD Hypercholesterolemia E78.00 Lumbar degenerative disc disease M51.36 Right foot drop M21.371 GERD without esophagitis K21.9 Onychomycosis B35.1 Left ankle pain M25.572 Chronicity: unspecified Anxiety F41.9 Smoker F17.200
== END 2022-10-13 14:55 | disposition home or self-care (01) ==
PROVIDERS: PCP Internal Medicine; Visit Provider Internal Medicine
DX: J44.9 Chronic obstructive pulmonary disease, unspecified (principal); K21.9 Gastro-esophageal reflux disease without esophagitis; F17.210 Nicotine dependence, cigarettes, uncomplicated; F41.9 Anxiety disorder, unspecified; M51.36 Other intervertebral disc degeneration, lumbar region; E78.00 Pure hypercholesterolemia, unspecified; M21.371 Foot drop, right foot; B35.1 Tinea unguium; M25.572 Pain in left ankle and joints of left foot
CPT/HCPCS: 99214

== ENCOUNTER 2023-02-15 10:02 | Outpatient (AMB) | payer OTHER, SELFPAY ==
--- NOTE | 2023-02-15 10:03 | MHC.PC.OV ---
Vital Signs 02/15/23 10:04 Height 5 ft 10 in Weight 163 lb BMI 23.4 BP 116/64 Blood Pressure Location Lt brachial Position Sitting Pulse 96 Pulse Source Pulse Oximeter Pulse Oximetry (%) 96 Oxygen Delivery Method Room Air Intake Visit Reasons: 4mth f/u Intake Note: pt been having wrist pain on right hand, pt states that he feels numbness as well on wrist. Mcat Tutor Required: No Choker Hooker: Present Accompanied by: registered nurse hh case manager Allergies tomato [Tomato] Allergy (Severe, Verified 02/15/23 11:17) RASH Medication List - Last Reconciled 02/15/23 by Jack Santo MD bupropion HCl 150 mg PO QAM buspirone 10 mg PO BID cyclobenzaprine 5 mg PO TID PRN doxepin 50 mg PO BEDTIME kvywvpnsrua-uievsvymd-uzjxywgp 200-62.5-25 mcg (Trelegy Ellipta) 1 inh inhalation DAILY 30 days gabapentin 600 mg PO TID 30 days [LUMBAR BACK BRACE Use as directed for increasing low back pain] nicotine 1 patch transdermal DAILY 7 days Ventolin HFA 90 mcg/actuation (albuterol sulfate) 2 puffs inhalation Q6H PRN 30 days NS Tobacco use date assessed: 10/13/22 Dental Screening Dental Screen Date: 02/15/23 Did you have a dental visit in the last 12 months?: No Did you have a dental problem in the last 6 months where you did not have access to dental care?: No Was dental information given to patient?: No (no teeth) HPI 4mth f/u HPI Details Patient comes in today for his follow up visit States that he has been experiencing right wrist pain for the past couple of weeks Denies any recent injury or trauma to his right wrist States that he feels okay otherwise He denies any headaches or dizziness Denies any chest pains, no increased shortness of breath although he still has recurrent coughing No nausea/ vomiting, no abdominal pain No change in bowel habits noted Is still not able to get his follow-up labs done [facility] Medical History GERD without esophagitis Right foot drop Smoker Anxiety Lumbar degenerative disc disease Compression fracture of lumbosacral spine COPD (chronic obstructive pulmonary disease) Surgical History History of ankle surgery Previous back surgery Family History Father Lung cancer Mother HTN (hypertension) Diabetes Social History Household Members: Friend(s) Housing: Apartment Do you presently have visiting nurse or other home services: No Alcohol intake: former Patient Tobacco Use Status: Current everyday Tobacco user Tobacco use type: Cigarette Cigarette Packs Per Day: 2.5 e-Cigarette/Vaping Use: Never Used Second Hand Smoke Exposure: Yes service: No Current occupational status: disabled Cognitive needs: No Hearing needs: No Vision needs: No Questionnaire Thrive Questionnaire Date Thrive assessed: 10/13/22 KATIANA-7 AMB Questionnaire KATIANA-7 Date KATIANA - 7 assessed: 10/13/22 Source: Developed by Drs. Eleuterio Henriquez, Ruthy Mares, Santi Madison and colleagues, with an educational robert from [employer] (f[employer]). Review of Systems Const Denies chills, Reports fatigue, Denies fever(s) and Denies headache(s) ENT Denies dysphagia, Denies dizziness, Denies otalgia, Denies headache(s), Denies odynophagia and Denies sore throat Card Denies chest pain, Denies palpitations and Reports dyspnea on exertion (mild; increased when he has coughing spells ) Resp Reports chest congestion (mild, chronic (smoker); feels somewhar tight when coughing), Reports cough (on and off), Denies pain with cough and Reports dyspnea on exertion (mild; increased when he has coughing spells ) GI Denies abdominal pain, Denies constipation, Denies dysphagia, Denies heartburn, Denies diarrhea, Denies nausea, Denies odynophagia and Denies vomiting Denies dysuria, Denies nocturia and Denies urinary frequency Musc Reports back pain (lower back - chronic ), Reports arthralgias (right wrist), Denies joint swelling and Reports radiating pain into limb (into right leg (chronic)) Skin/Breast Details: (+) severely thickened and disfigured toenails over multiple toes on both feet Denies rash Neuro Denies dizziness and Denies headache(s) Psych Reports anxiety Endo Reports fatigue and Denies palpitations Physical exam (Primary Care) Vital Signs: Last Vital Signs Pulse 96 02/15/23 10:04 BP 116/64 02/15/23 10:04 Pulse Ox 96 02/15/23 10:04 Oxygen Delivery Method Room Air 02/15/23 10:04 BMI result Body Mass Index 23.4 Tobacco/Smoking Status: Tobacco use Status Tobacco use date assessed 10/13/22 02/15/23 10:13 Patient Tobacco Use Status Current everyday Tobacco 02/15/23 10:13 Tobacco use type Cigarette 02/15/23 10:13 e-Cigarette/Vaping Use Never Used 02/15/23 10:13 Thrive Assessment: Date of Thrive Assessment Date Thrive assessed 10/13/22 02/15/23 10:13 Const General: no acute distress and alert HENMT Ears: TM's normal bilaterally and EAC's normal Throat: Yes posterior oropharynx normal and Yes tonsils normal (no TP congestion) Neck Neck: Yes no lymphadenopathy and Yes supple Thyroid: Thyroid normal Resp Auscultation: no rales, rhonchi (diminished breath sounds with scattered rhonchi bilaterally), no wheezes and diminished lung sounds Cardio Rate: regular rate Rhythm: regular rhythm Heart sounds: no murmurs GI Palpation (GI): Soft to palpation and nontender Auscultation: normal bowel sounds Back/Spine/Pelvis Thoracic/Lumbar Spine: lumbar spinal tenderness and straight leg raise positive (with (+) chronic right foot drop) Skin Rashes: no rashes Extrem General: Yes no clubbing, cyanosis or edema Right upper extremity: wrist Details: tenderness; no swelling Left lower extremity: ankle Details: tenderness (especially around the lateral malleolar area and adjacent the heel); no swelling Assessment and Plan Assessment & Plan (1) COPD (chronic obstructive pulmonary disease): Code(s): J44.9 - Chronic obstructive pulmonary disease, unspecified Qualifiers: COPD type: unspecified COPD Qualified Code(s): J44.9 - Chronic obstructive pulmonary disease, unspecified Plan: Continue Albuterol HFA 2 inhalations every 6 hours as needed Will try to switch him out from Incruse Ellipta to Trelegy Ellipta 200-62.5.25 mcg 1 inhalation QD for better efficacy as he still has significant rhonchi and diminished breath sounds bilaterally on auscultation Offered again to refer him to pulmonary for further evaluation and management but he continues to decline - does not feel that he needs to see a specialist at this time Have also reminded / emphasized to him that he really needs to quit smoking considering his lung condition (2) Hypercholesterolemia: Code(s): E78.00 - Pure hypercholesterolemia, unspecified Plan: Reinforced low cholesterol diet Advised again that we have NEVER been able to get his fasting lipid profile checked even though we have ordered it multiple times over the past several years; he had a spot cholesterol level done back in 1996 that showed up at 204 mg/dl and we have never been able to look into this further since Stressed again that he needs to get his labs done AMY (reordered) so we can determined how his cholesterol levels actually are and what we need to do based on his results (3) Lumbar degenerative disc disease: Comment: Most recent lumbar spine CT done on 02/09/2021 revealed (+) multilevel facet arthritis and degenerative disc changes, with a complete compression fracture of L5 -- patient sustained a crush injury to his lumbar spine in 1982 Code(s): M51.36 - Other intervertebral disc degeneration, lumbar region Plan: Lumbar spine MRI last done on 02/08/2021 revealed severe compression fracture at L5 with fragmentation and displacement of the fragments resulting in significant distortion at this level. There is also severe narrowing of the right neural foramen with compression of the exiting right L4 nerve root, likely resulting in his right foot drop He was referred to the [facility] here at [facility] [place] for neurosurgical evaluation and management at his last visit, especially with his increasing low back pain lately, but he has not yet been seen Reinforced activity and weight-lifting restrictions Continue Cyclobenzaprine 5 mg TID and Gabapentin 600 mg TID (4) Right foot drop: Comment: chronic Code(s): M21.371 - Foot drop, right foot Plan: No intervention is indicated at this time but will see what neurosurgery recommends once he is seen at the Spine Center - patient was referred at his last visit but he has not yet been seen (5) GERD without esophagitis: Code(s): K21.9 - Gastro-esophageal reflux disease without esophagitis Plan: Dietary restrictions reinforced Patient used to take Omeprazole 20 mg QD but states that he has not had to take Rx in a while now and has not had any flare up of his symptoms lately (6) Onychomycosis: Code(s): B35.1 - Tinea unguium Plan: He was referred to podiatry for further evaluation and management at his last visit but states that he has not yet heard from podiatry about scheduling him for an appointment - will try to have the referral staff look into this and follow up on his referral (7) Left ankle pain: Code(s): M25.572 - Pain in left ankle and joints of left foot Qualifiers: Chronicity: unspecified Qualified Code(s): M25.572 - Pain in left ankle and joints of left foot Plan: He was previously sent for x-rays of the left ankle for further evaluation but he has not gotten this done yet - is advised to try to get this done AMY Advised that depending on how his x-rays come out, we may also need him to see podiatry for this issue (8) Right wrist pain: Code(s): M25.531 - Pain in right wrist Plan: Will also send him for x-rays of the right wrist for further evaluation (9) Anxiety: Code(s): F41.9 - Anxiety disorder, unspecified Plan: Continue Bupropion SR 150 mg Q AM, Buspirone 10 mg BID and Doxepin 50 mg Q HS (10) Smoker: Code(s): F17.200 - Nicotine dependence, unspecified, uncomplicated Plan: Counseled again to continue attempts at smoking cessation (11) Colon cancer screening: Comment: Declined screening colonoscopy but agrees to Cologuard testing Code(s): Z12.11 - Encounter for screening for malignant neoplasm of colon Plan: Will refer patient again for Cologuard testing - he was not able to get his Cologuard done last year Plan Follow up in 4 months Orders: Orders XR wrist RT min 3V 02/15/23 M25.531 - Pain in right wrist Referrals Cologuard Test Z12.11 - Encounter for screening for malignant neoplasm of colon Medications: New bdlhirykweu-hogimskrj-yzrdwduo 200-62.5-25 mcg (Trelegy Ellipta) 1 inh inhalation DAILY 30 days 60 ea 5RF nicotine 1 patch transdermal DAILY 7 days 7 ea 0RF F17.200 - Nicotine dependence, unspecified, uncomplicated Discontinued umeclidinium 62.5 mcg/actuation (Incruse Ellipta) Discontinued Reason: Doctor's Order 1 inh inhalation BEDTIME 30 days 30 ea 3RF Coding Level of Care Code Est Pt Level 4 (76081) Diagnoses Chronic obstructive pulmonary disease, unspecified COPD type J44.9 COPD type: unspecified COPD Hypercholesterolemia E78.00 Lumbar degenerative disc disease M51.36 Right foot drop M21.371 GERD without esophagitis K21.9 Onychomycosis B35.1 Left ankle pain, unspecified chronicity M25.572 Chronicity: unspecified Right wrist pain M25.531 Anxiety F41.9 Smoker F17.200 Colon cancer screening Z12.11
[2023-02-15 10:04] VITALS: BP 116/64; PULSE 96; O2SAT 96; BMI 23.4
== END 2023-02-15 11:20 | disposition home or self-care (01) ==
PROVIDERS: PCP Internal Medicine; Visit Provider Internal Medicine
DX: J44.9 Chronic obstructive pulmonary disease, unspecified (principal); E78.00 Pure hypercholesterolemia, unspecified; M51.36 Other intervertebral disc degeneration, lumbar region; M21.371 Foot drop, right foot; K21.9 Gastro-esophageal reflux disease without esophagitis; B35.1 Tinea unguium; M25.572 Pain in left ankle and joints of left foot; M25.531 Pain in right wrist; F41.9 Anxiety disorder, unspecified; F17.200 Nicotine dependence, unspecified, uncomplicated; Z12.11 Encounter for screening for malignant neoplasm of colon
CPT/HCPCS: 99214

== ENCOUNTER 2023-03-15 09:41 | Outpatient (REF) | payer OTHER, SELFPAY ==
[2023-03-15 13:07] LABS: MANUAL DIFF FLAG NO
[2023-03-15 13:17] LABS: Basophils Percent Auto 0.5 % (0-2); Eosinophils Absolute Auto 0.1 X10*3/uL (0.0-0.4); Eosinophils Percent Auto 2.4 % (0-4); Hematocrit 44.4 % (42.0-52.0); Imm Gran Abs Auto 0.01 X10*3/uL (0.00-0.03); Imm Gran Pct Auto 0.2 % (0.0-0.4); Lymphocytes Absolute Auto 1.1 X10*3/uL (1.2-4.9); Lymphocytes Percent Auto 26.9 % (20-40); Mean Corpuscular HGB Conc 33.8 g/dl (31.0-36.0); Mean Corpuscular Hemoglobin 31.1 pg (27.0-33.0); Mean Corpuscular Volume 91.9 fL (80.0-98.0); Mean Platelet Volume 10.5 fL (9.4-12.4); Monocytes Absolute Auto 0.4 X10*3/uL (0.1-1.2); Monocytes Percent Auto 9.7 % (2-11); Neutrophils Absolute Auto 2.6 x10*3/uL (2.0-8.3); Neutrophils Percent Auto 60.3 % (45-73); Platelet Count 274 X10*3/uL (160-400); Red Blood Count 4.83 X10*6/uL (4.60-5.80); Red Cell Distribution Width 11.5 % (11.0-16.0); White Blood Count 4.2 X10*3/uL (4.8-10.8)
[2023-03-15 13:34] LABS: Alanine Aminotransferase 43 U/L (0-40); Albumin Level 3.9 g/dL (3.5-5.0); Alkaline Phosphatase 70 U/L (39-117); Anion Gap 12 (12-20); Aspartate Amino Transferase 23 U/L (5-37); Bilirubin Total 1.2 mg/dL (0.0-1.0); Blood Urea Nitrogen 10 mg/dL (9-16); Carbon Dioxide 27 mmol/L (22-29); Chloride 103 mmol/L (96-108); Cholesterol 175 mg/dL (<200); Estimated Glomerular Filt Rate > 60; Glucose Fasting 102 mg/dL (60-99); HDL Cholesterol 36 mg/dL (>40); LDL Cholesterol Calculated 122 mg/dL (<100); Potassium 4.1 mmol/L (3.3-5.1); Sodium 138 mmol/L (135-145); Total Protein 6.6 g/dL (6.5-8.0); Triglycerides 88 mg/dL (<150)
[2023-03-15 13:48] LABS: TSH reflex Free T4 < 0.01 uIU/mL (0.32-4.0); Vitamin D 25-OH Total 16.2 ng/mL (>30)
[2023-03-15 14:38] LABS: Appearance Urine Clear; Color Urine Yellow; Glucose Urine UA Negative (Negative); Leukocyte Esterase Urine Negative (Negative); Nitrite Urine Negative (Negative); PH 6.5 (5.0-9.0); Specific Gravity - Urine <= 1.005 (1.005-1.025); Urine Blood Negative (Negative); Urine Ketones Negative (Negative); Urine Protein Negative (Neg-Trace)
== END 2023-03-15 09:42 | disposition home or self-care (01) ==
LOC: HO.HMGCLDS 09:41
PROVIDERS: PCP Internal Medicine; Visit Provider Internal Medicine
DX: R30.0 Dysuria (principal); E78.00 Pure hypercholesterolemia, unspecified; E55.9 Vitamin D deficiency, unspecified; I10 Essential (primary) hypertension
CPT/HCPCS: 36415; 80053; 80061; 81003; 82306; 84439; 84443; 85025

== ENCOUNTER 2023-03-19 16:03 | Inpatient (IN) | payer OTHER, SELFPAY ==
--- NOTE | ~2023-03-19 | XR_ITS ---
EXAMINATION: XR CHEST CLINICAL INFORMATION: Chest pain COMPARISON: Previous chest x-ray most recent January 2021 TECHNIQUE: 2 views of the chest were obtained. FINDINGS: The cardiac and mediastinal contours are stable. Small dense nodule in midlung measuring 4 mm stable from prior exams probably representing a calcified granuloma. Lungs are otherwise clear. No pleural effusion or pneumothorax. Old mid thoracic vertebral body compression fracture, unchanged. XR/XR chest 2V IMPRESSION: No evidence for acute disease in the chest
--- NOTE | 2023-03-19 16:10 | ECG_ITS ---
Test Reason : CHEST PX Blood Pressure : / mmHG Vent. Rate : 087 BPM Atrial Rate : 087 BPM P-R Int : 168 ms QRS Dur : 054 ms QT Int : 344 ms P-R-T Axes : 060 022 063 degrees QTc Int : 413 ms Normal sinus rhythm Normal ECG When compared with ECG of 07-FEB-2021 23:07, No significant change was found Referred By: Noemy Rashid Electronically Signed By:SWEETIE OVIEOD MD
--- NOTE | 2023-03-19 16:15 | PC.NURSE ---
[facility] [place]) [phone]
[2023-03-19 16:16] VITALS: BP 136/76; BP 140/78; PULSE 89; PULSE 95; RESP 19; TEMP 36.5; O2SAT 97; O2SAT 98; BMI 24.2
[2023-03-19 16:30] LABS: MANUAL DIFF FLAG NO
[2023-03-19 16:32] LABS: Basophils Percent Auto 0.8 % (0-2); Eosinophils Absolute Auto 0.1 X10*3/uL (0.0-0.4); Eosinophils Percent Auto 2.2 % (0-4); Hematocrit 43.4 % (42.0-52.0); Hemoglobin 14.5 g/dl (14.0-18.0); Lymphocytes Absolute Auto 1.1 X10*3/uL (1.2-4.9); Lymphocytes Percent Auto 28.5 % (20-40); Mean Corpuscular HGB Conc 33.4 g/dl (31.0-36.0); Mean Corpuscular Volume 92.7 fL (80.0-98.0); Mean Platelet Volume 10.6 fL (9.4-12.4); Monocytes Absolute Auto 0.3 X10*3/uL (0.1-1.2); Monocytes Percent Auto 8.7 % (2-11); Neutrophils Absolute Auto 2.2 x10*3/uL (2.0-8.3); Neutrophils Percent Auto 59.8 % (45-73); Platelet Count 239 X10*3/uL (160-400); Red Blood Count 4.68 X10*6/uL (4.60-5.80); Red Cell Distribution Width 11.8 % (11.0-16.0); White Blood Count 3.7 X10*3/uL (4.8-10.8)
--- NOTE | 2023-03-19 16:40 | ED_ITS ---
HPI - Chest Pain General Chief Complaint: Chest Pain Stated Complaint: sudden onset chest pain after cigarette Time Seen by Provider: 03/19/23 16:09 Source: patient and EMS Mode of arrival: EMS Limitations: no limitations History of Present Illness HPI narrative: Patient is a 57-year-old male who presents emergency department for evaluation of chest pain. He reports just prior to arrival he went outside to ?smoke his last cigarette of the night? he completed the cigarette and he went back inside. Upon sitting down he developed a sharp stabbing pain to the substernal region and felt his left arm to be numb and very heavy. He had some shortness of breath and diaphoresis at the same time. He contacted 911. He states after about 5 minutes his pain had gone from 10/10 to 5/10. EMS had administered 1 spray of nitro, as well as aspirin 324 mg, he states that after the nitro his pain soon after completely had resolved. He denies any symptoms at this moment. He denies any history of similar pain in the past. He states he only takes medications for neuropathy in his right leg, he is not sure what this is secondary to a he takes gabapentin and a muscle relaxer. 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 Related Data Previous Rx's Medication Instructions Recorded LUMBAR BACK BRACE #1 ea 10/13/22 Ventolin HFA 90 mcg/actuation 2 puff inhalation Q6H PRN 10/13/22 aerosol inhaler (albuterol sulfate) shortness of breath or wheezing 30 days #18 grams gabapentin 600 mg tablet 600 mg PO TID 30 days #90 tabs 10/13/22 bupropion HCl 150 mg 24 hr tablet, 150 mg PO QAM #30 tabs 02/26/23 extended release buspirone 10 mg tablet 10 mg PO BID #60 tabs 02/26/23 cyclobenzaprine 5 mg tablet 5 mg PO TID PRN for muscle spasm 02/26/23 #90 tabs doxepin 50 mg capsule 50 mg PO BEDTIME #30 caps 02/26/23 fluticasone furoate 200 1 inh inhalation DAILY #60 ea 02/26/23 mcg-vilanterol 25 mcg/dose inhalation powder (Breo Ellipta) umeclidinium 62.5 mcg/actuation 1 inh inhalation BEDTIME 30 days 02/26/23 blister powder for inhalation #30 ea (Incruse Ellipta) Allergies Allergy/AdvReac Type Severity Reaction Status Date / Time tomato [Tomato] Allergy Severe RASH Verified 02/15/23 11:17 mushroom Allergy Anaphylaxis Verified 03/19/23 16:21 shrimp Allergy Anaphylaxis Verified 03/19/23 16:21 Review of Systems 2 Review of Systems: Yes all other systems are reviewed and are negative PMFSH Past Medical History Attestation statement: The following information was validated with the patient. Source: old records reviewed Medical History GERD without esophagitis Right foot drop Smoker Anxiety Lumbar degenerative disc disease Compression fracture of lumbosacral spine COPD (chronic obstructive pulmonary disease) Surgical History History of ankle surgery Previous back surgery Family History Family History Father Lung cancer Mother HTN (hypertension) Diabetes Social History Social History Household Members: Friend(s) Housing: Apartment Do you presently have visiting nurse or other home services: No Alcohol intake: former Patient Tobacco Use Status: Current everyday Tobacco user Tobacco use type: Cigarette Cigarette Packs Per Day: 2.5 Smoked in Last 30 Days: Yes e-Cigarette/Vaping Use: Never Used Second Hand Smoke Exposure: Yes Use of substances other than those prescribed or required for medical reasons: No Advance Directives: No Advance Directives Information Provided: Yes service: No Current occupational status: disabled Cognitive needs: No Hearing needs: No Vision needs: No Physical Exam 2 Vital Signs: Vital Signs: Last Vital Signs Temp 97.7 F 03/19/23 16:16 Pulse 93 03/19/23 20:12 Resp 18 03/19/23 20:12 BP 120/87 03/19/23 20:12 Pulse Ox 97 03/19/23 20:12 O2 Del Method Room Air 03/19/23 20:12 BMI result Body Mass Index 22.9 Appearance: Alert.?Oriented to person, place and time. No acute distress.?Normal affect. Eyes: Pupils equal, round and reactive to light.? ENT: Pharynx normal.?? Neck: Normal inspection.? Neck supple.?? CVS: Heart sounds normal. Normal heart rate and rhythm.? Pulses normal.?? Respiratory: No respiratory distress.? Lung sounds clear to auscultation bilaterally?? Abdomen: Soft and non-tender. Normoactive bowel sounds. No pulsatile mass.?? Skin: Skin warm and dry.? Normal skin color.? Normal skin turgor.?? Extremities: No lower extremity edema.? No calf ttp? Neuro: Moves all extremities spontaneously. Sensation intact bilaterally. CN II- XII intact. No focal neuro deficits. Ambulates with normal steady gait. Course Reevaluation(s) Reevaluation #1: CBC reveals leukopenia 3.7, no anemia. Overall unremarkable CMP, random glucose 137, he does admit to having ate prior to arrival. BNP within normal range, no evidence of heart failure. High sensitive troponin within normal range at 14.6, will obtain delta troponin for further evaluation of ACS. D-dimer negative, unlikely dissection/PE. COVID-19/influenza testing negative. CXR reveals no acute cardiopulmonary abnormality. Remains chest pain-free at this time. Time: 18:44 Reevaluation #2: Received call from lab, critical troponin 328.4, concerning at this time for NSTEMI, consulted cardiology Dr. Sinha, patent remains CP free throughout ED stay and currently, initiated heparin gtt. Repeat EKG without acute changes. PT admitted to hospitalist service, Dr. Mccord. Time: 20:07 Medications Administered Generic Name Dose Route Start Last Admin Trade Name Freq PRN Reason Stop Dose Admin Atorvastatin Calcium 40 mg 03/19/23 21:10 03/19/23 21:59 Atorvastatin Calcium 40 Mg Tablet PO 40 mg BEDTIME STANISLAV Administration Heparin Sodium/Sodium Chloride 25,000 unit in 250 mls @ 0 mls/hr 03/19/23 20:30 03/19/23 20:39 Heparin Sodium,Porcine/1/2ns IVCONT 12 units/kg/hr .Q0M STANISLAV 8.46 mls/hr Administration Protocol Per Protocol Melatonin 6 mg 03/19/23 21:02 03/19/23 22:00 Melatonin 3 Mg Tablet PO 6 mg BEDTIME PRN Administration Insomnia Discontinued Medications Generic Name Dose Route Start Last Admin Trade Name Freq PRN Reason Stop Dose Admin Heparin Sodium (Porcine) 4,000 unit 03/19/23 20:12 03/19/23 20:38 Heparin Sodium,Porcine 5,000 Unit/Ml Vial IVPUSH 03/19/23 20:13 4,000 unit ONCE ONE Administration Lorazepam 1 mg 03/19/23 21:48 03/19/23 22:00 Lorazepam 1 Mg Tablet PO 03/19/23 21:49 1 mg ONCE ONE Administration Medical Decision Making Medical Decision Making MDM Narrative: Patient is a 57-year-old male with past medical history of GERD, COPD, TIA, anxiety, hypercholesterolemia presenting to the emergency department for evaluation of chest pain as per HPI. Chest pain has resolved at this time s/p nitro administration pre-hospital. Currently denies any symptoms. Overall appears well, speaking clear full sentences, no distress. No tachycardia tachypnea or hypoxia. Will obtain CBC to evaluate for leukocytosis/ anemia, CMP and lipase to evaluate for abnormal electrolytes /abnormal renal function/ abnormal hepatic/biliary function, EKG and troponin to evaluate for ischemia/ACS. Chest x-ray to evaluate for consolidation/ infiltrate/ mass/ pulmonary congestion and Urinalysis. Differential Diagnosis Differential Diagnoses: The differential diagnosis associated with the presentation includes (ACS, GERD, PUD, muscular pain. Based on history and physical examination less likely aortic dissection, pulmonary embolism, esophagitis) Admission/Observation Consideration of admission/observation: Escalation of care including admission/observation considered (See narrative above and course narrative for further detail) Consult Healthcare Provider Management of the patient was discussed with: Hospitalist and Commercial Collections Driver Lab Data [facility] Lab Attestation statement: I reviewed the patient's lab results. (See course narrative for further detail) 03/19/23 16:26 03/19/23 16:26 Labs: Lab Results 03/19/23 03/19/23 Range/Units 16:26 19:35 WBC 3.7 L (4.8-10.8) X10*3/uL RBC 4.68 (4.60-5.80) X10*6/uL Hgb 14.5 (14.0-18.0) g/dl Hct 43.4 (42.0-52.0) % MCV 92.7 (80.0-98.0) fL MCH 31.0 (27.0-33.0) pg MCHC 33.4 (31.0-36.0) g/dl RDW 11.8 (11.0-16.0) % Plt Count 239 (160-400) X10*3/uL MPV 10.6 (9.4-12.4) fL Immature Gran % (Auto) 0.0 (0.0-0.4) % Neut % (Auto) 59.8 (45-73) % Lymph % (Auto) 28.5 (20-40) % [place] % (Auto) 8.7 (2-11) % Eos % (Auto) 2.2 (0-4) % Baso % (Auto) 0.8 (0-2) % Lymph # (Auto) 1.1 L (1.2-4.9) X10*3/uL [place] # (Auto) 0.3 (0.1-1.2) X10*3/uL Eos # (Auto) 0.1 (0.0-0.4) X10*3/uL Baso # (Auto) 0.0 (0.0-0.2) X10*3/uL Abs Immat Gran (auto) 0.00 (0.00-0.03) X10*3/uL Absolute Neuts (auto) 2.2 (2.0-8.3) x10*3/uL Absolute Nucleated RBC 0.000 (0.0-0.012) X10*3/uL Nucleated RBC % (auto) 0.0 (0.0-0.2) /100WBC PT 12.0 (11.1-13.3) SEC INR 1.0 (0.9-1.1) APTT 29.5 (26.0-36.4) SEC D-Dimer High Sensitivty < 150 NG/ML Sodium 139 (135-145) mmol/L Potassium 3.8 (3.3-5.1) mmol/L Chloride 106 (96-108) mmol/L Carbon Dioxide 26 (22-29) mmol/L Anion Gap 11 L (12-20) BUN 11 (9-16) mg/dL Creatinine 0.74 (0.5-1.4) mg/dL Estim Creat Clear Calc 110.1 Estimated GFR > 60 Random Glucose 137 H (60-115) mg/dL Calcium 8.7 (8.4-10.2) mg/dL Magnesium 2.1 (1.6-2.6) mg/dL Total Bilirubin 0.7 (0.0-1.0) mg/dL AST 26 (5-37) U/L ALT 38 (0-40) U/L Alkaline Phosphatase 68 (39-117) U/L Troponin I High Sens 14.6 328.4 H* D (<3.5-35.0) ng/L B-Natriuretic Peptide 22 (<100) pg/mL Total Protein 6.5 (6.5-8.0) g/dL Albumin 3.8 (3.5-5.0) g/dL Lipase 20 (8-78) U/L COVID-19 (ANDRA) Negative (Negative) COVID-19 Clin Com See Note Influenza Type A (MOLLY) Negative (Negative) Influenza Type B (MOLLY) Negative (Negative) Influenza A & B Note See Note Independent Interpretation I performed an independent interpretation of an: EKG and Plain X-Ray (I personally interpreted chest x-ray and agree with radiologist impression) Interpretation: Rate: 87 Rhythm:? Normal sinus rhythm [place]:? Normal Normal P waves.? Normal JORDAN.?? Normal QRS complex.?? ST T wave :??No ST elevation, no ST depression [id number] The study has been interpreted contemporaneously by me. Radiology Impression Discussion of test interpretation with radiology: I have reviewed the radiologist's reading. Radiologist Impression: XR/XR chest 2V IMPRESSION: No evidence for acute disease in the chest Independent Historian Clinical information obtained from an independent historian. History obtained from or confirmed by: EMS External Record Review External record reviewed: Outpatient record Tests considered The following testing was considered but not selected: considered CT angio chest, see course narrative Critical Care Time Critical Care Time Critical Care Time: Yes Total Critical Care Time: 50 Attestation: I personally attest to this critical care time spent taking care of the patient exclusive of all other billable procedures was approximately 50 minutes including initial evaluation of patient, ordering tests, x-ray interpretation, EKG interpretation, medical consultation, documentation, re-evaluation. Discharge Plan Discharge Clinical Impression: NSTEMI (non-ST elevated myocardial infarction) Patient Disposition: Admitted As Inpatient
[2023-03-19 16:49] LABS: Alanine Aminotransferase 38 U/L (0-40); Albumin Level 3.8 g/dL (3.5-5.0); Alkaline Phosphatase 68 U/L (39-117); Anion Gap 11 (12-20); Aspartate Amino Transferase 26 U/L (5-37); Bilirubin Total 0.7 mg/dL (0.0-1.0); Blood Urea Nitrogen 11 mg/dL (9-16); Calcium 8.7 mg/dL (8.4-10.2); Carbon Dioxide 26 mmol/L (22-29); Chloride 106 mmol/L (96-108); Creatinine Clr Calc Pharmacy 110.1; Estimated Glomerular Filt Rate > 60; Glucose Random 137 mg/dL (60-115); Lipase 20 U/L (8-78); Magnesium 2.1 mg/dL (1.6-2.6); Potassium 3.8 mmol/L (3.3-5.1); Sodium 139 mmol/L (135-145); Total Protein 6.5 g/dL (6.5-8.0)
[2023-03-19 16:54] LABS: B Type Natriuretic Peptide 22 pg/mL (<100)
[2023-03-19 16:56] LABS: Troponin-I High Sensitivity 14.6 ng/L (<3.5-35.0)
[2023-03-19 17:23] LABS: COVID-19 Test Negative (Negative); IDNOW Serial# 08D9AD1C; IDNOW Serial# 152EDE1D; Influenza A Negative (Negative); Influenza B2 Negative (Negative)
[2023-03-19 17:50] LABS: D Dimer High Sensitivity < 150 NG/ML
[2023-03-19 19:28] VITALS: BP 110/70; PULSE 85; RESP 16; O2SAT 98
[2023-03-19 20:02] LABS: Troponin-I High Sensitivity 328.4 ng/L (<3.5-35.0)
[2023-03-19 20:10] VITALS: BMI 22.9
[2023-03-19 20:11] VITALS: PULSE 92
[2023-03-19 20:12] VITALS: BP 120/87; PULSE 93; RESP 18; O2SAT 97
--- NOTE | 2023-03-19 20:15 | PC.NURSE ---
assumed care of pt 2014. Frank AIRBRUSH ARTIST notified of NSTEMI. accurate standing weight obtained. IV placement confirmed. pt reporting feeling anxious, tearful after being informed by Frank AIRBRUSH ARTIST. Frank notified as pt requested medication to help with anxiety. per Frank AIRBRUSH ARTIST no new orders at this time.
--- NOTE | 2023-03-19 20:17 | ECG_ITS ---
Test Reason : CHEST PAIN Blood Pressure : / mmHG Vent. Rate : 089 BPM Atrial Rate : 089 BPM P-R Int : 160 ms QRS Dur : 052 ms QT Int : 352 ms P-R-T Axes : 063 026 067 degrees QTc Int : 428 ms Poor data quality Possible Normal sinus rhythm Otherwise normal ECG When compared with ECG of 19-MAR-2023 16:21, Poor data quality in current ECG precludes serial comparison Referred By: Noemy Rashid Electronically Signed By:SWEETIE OVIEDO MD
[2023-03-19 20:19] LABS: Partial Thromboplastin Time 29.5 SEC (26.0-36.4)
[2023-03-19] MEDS: Heparin Sodium,Porcine 5,000 UNIT/ML VIAL 4000 UNIT IVPUSH (20:38)
[2023-03-19] MEDS: Heparin Sodium,Porcine/1/2NS 25,000 UNIT/250 ML IV.SOLN 8.46 UNIT IVCONT (20:39)
--- NOTE | 2023-03-19 20:41 | PC.NURSE ---
heparin protocol started per apr.
--- NOTE | 2023-03-19 21:04 | PM.IMHP ---
History of Present Illness Date of Service: 03/19/23 Chief Complaint: Chest Pain This is a 57-year-old male with pertinent history of COPD not on home oxygen, lumbar radiculopathy, mood disorder, tobacco use disorder presents to the emergency department for evaluation of chest discomfort. Patient states he went to smoke his last cigarette and was walking around the house before he had sudden-onset substernal chest discomfort. He sat down due to the chest discomfort. It was associated with mild dyspnea, sweating. The midsternal chest discomfort radiated to the jaw and was associated with left arm numbness. Patient states it lasted for about 5 minutes until EMS gave him sublingual nitroglycerin. No history of similar complaints in the past. No history of cardiac stenting or CABG. Patient states he smokes about a pack of cigarettes every day. His mom had heart attack at age of 38. He is former cocaine use disorder. No fever, chills, palpitations, abdominal pain, changes in urinary or bowel habits. In the emergency department, troponin was found to be elevated and Cardiology was consulted. Patient was initiated on IV heparin. Patient received 324 mg aspirin by EMS. Review of Systems Constitutional: Constitutional: Reports no additional constitutional complaints Cardiovascular: Cardiovascular: Reports chest pain and Reports chest pain at rest Respiratory: Respiratory: Reports no additional respiratory complaints Gastrointestinal: Gastrointestinal: Reports no additional gastrointestinal complaints Genitourinary: Genitourinary: Reports no additional male genitourinary complaints [facility] Medical History GERD without esophagitis Right foot drop Smoker Anxiety Lumbar degenerative disc disease Compression fracture of lumbosacral spine COPD (chronic obstructive pulmonary disease) Family History Father Lung cancer Mother HTN (hypertension) Diabetes Pertinent family history: Mother with history of heart attack at the age of 38 Surgical History History of ankle surgery Previous back surgery Social History Household Members: Friend(s) Housing: Apartment Do you presently have visiting nurse or other home services: No Alcohol intake: former Patient Tobacco Use Status: Current everyday Tobacco user Tobacco use type: Cigarette Cigarette Packs Per Day: 2.5 Smoked in Last 30 Days: Yes e-Cigarette/Vaping Use: Never Used Second Hand Smoke Exposure: Yes Use of substances other than those prescribed or required for medical reasons: No Advance Directives: No Advance Directives Information Provided: Yes service: No Current occupational status: disabled Cognitive needs: No Hearing needs: No Vision needs: No Meds Allergies Allergy/AdvReac Type Severity Reaction Status Date / Time tomato [Tomato] Allergy Severe RASH Verified 02/15/23 11:17 mushroom Allergy Anaphylaxis Verified 03/19/23 16:21 shrimp Allergy Anaphylaxis Verified 03/19/23 16:21 Active Medications: Current Medications Heparin Sodium (Porcine) (Heparin Sodium,Porcine 5,000 Unit/Ml Vial) 2,800 unit 40 unit/kg (2800 unit) IVPUSH PROTOCOL BOLUS PRN; Protocol PRN Reason: 40 unit/kg - Heparin Protocol Heparin Sodium (Porcine) (Heparin Sodium,Porcine 5,000 Unit/Ml Vial) 5,600 unit 80 unit/kg (5600 unit) IVPUSH PROTOCOL BOLUS PRN; Protocol PRN Reason: 80 unit/kg - Heparin Protocol Heparin Sodium/Sodium Chloride (Heparin Sodium,Porcine/1/2ns) 25,000 unit in 250 mls @ 0 mls/hr IVCONT .Q0M STANISLAV; Protocol Last Admin: 03/19/23 20:39 Dose: 12 units/kg/hr, 8.46 mls/hr Physical Exam Vital Signs and Narrative: Vital Signs: Last Vital Signs Temp 97.7 F 03/19/23 16:16 Pulse 93 03/19/23 20:12 Resp 18 03/19/23 20:12 BP 120/87 03/19/23 20:12 Pulse Ox 97 03/19/23 20:12 O2 Del Method Room Air 03/19/23 20:12 BMI result Body Mass Index 22.9 Middle-aged male lying in bed in no distress Neck supple, no JVD Regular rate and rhythm, S1-S2 heard Regular breath sounds bilaterally, no wheezing or crackles appreciated Abdomen soft nontender, no guarding, no rigidity Patient is awake, alert and oriented to self, place, time and person ; no focal motor deficit Psych: Anxious No pedal edema Results Labs 03/19/23 16:26 03/19/23 16:26 Labs: Laboratory Results - last 24 hr 03/19/23 16:26 MCV 92.7 MCH 31.0 MCHC 33.4 RDW 11.8 Plt Count 239 MPV 10.6 Immature Gran % (Auto) 0.0 Neut % (Auto) 59.8 Lymph % (Auto) 28.5 [place] % (Auto) 8.7 Eos % (Auto) 2.2 Baso % (Auto) 0.8 Lymph # (Auto) 1.1 L [place] # (Auto) 0.3 Eos # (Auto) 0.1 Baso # (Auto) 0.0 Abs Immat Gran (auto) 0.00 Absolute Neuts (auto) 2.2 Absolute Nucleated RBC 0.000 Nucleated RBC % (auto) 0.0 PT 12.0 INR 1.0 APTT 29.5 D-Dimer High Sensitivty < 150 Anion Gap 11 L Estim Creat Clear Calc 110.1 Estimated GFR > 60 Random Glucose 137 H Calcium 8.7 Magnesium 2.1 Total Bilirubin 0.7 AST 26 ALT 38 Alkaline Phosphatase 68 B-Natriuretic Peptide 22 Total Protein 6.5 Albumin 3.8 Lipase 20 COVID-19 (ANDRA) Negative COVID-19 Clin Com See Note Influenza Type A (MOLLY) Negative Influenza Type B (MOLLY) Negative Influenza A & B Note See Note Imaging Radiologist's Impressions: Impressions Chest X-Ray 03/19/23 17:04 IMPRESSION: No evidence for acute disease in the chest Assessment and Plan (1) NSTEMI (non-ST elevated myocardial infarction): Status: Acute Plan This is a 57-year-old male with pertinent history of COPD not on home oxygen, lumbar radiculopathy, mood disorder, tobacco use disorder presents to the emergency department for evaluation of chest discomfort. #. NSTEMI: Received 324 mg aspirin via EMS. Initiated on IV heparin in the ER. Consulted Cardiology, appreciate assistance. Obtaining echocardiogram. Soft pressures, hold beta-lobo. Initiating high-intensity statin and daily antiplatelet agent #. Mood disorder: Continue home mood stabilizers #. COPD: No exacerbation during admission. Continue home inhalers #. Chronic lumbar radiculopathy: On gabapentin #. Tobacco use disorder: Counseled regarding cessation. Refused nicotine patch. DVT prophylaxis: Heparin Full code Admit as inpatient and will require two night minimum hospital stay for IV heparin (as above), which is not possible in a lesser acute setting. Specialist consult pending Quality Stroke Does the patient have a stroke diagnosis?: No VTE Prior VTE?: No VTE Risk Level:: Medical - moderate - high VTE Device Contraindication: Treatment Not Indicated VTE Drug Contraindication: N/A - Med Ordered
[2023-03-19] MEDS: Atorvastatin Calcium 40 MG TABLET PO (21:59)
[2023-03-19] MEDS: LORazepam 1 MG TABLET PO (22:00)
[2023-03-19] MEDS: Melatonin 3 MG TABLET 6 MG PO (22:00)
[2023-03-20] VITALS (7 sets, daily range): BP systolic 110–153; BP diastolic 58–74; PULSE 67–97; RESP 16–20; TEMP 36.4–36.7; O2SAT 95–98; BMI 23.5; BMI 23.8
[2023-03-20] MEDS: Albuterol/Iprat 2.5/0.5MG 3 ML AMPUL.NEB INHALE (00:46)
[2023-03-20 03:05] LABS: PTT Heparin Drip 82.1 SEC (53-77.9)
[2023-03-20] MEDS: Acetaminophen 325 MG TABLET 650 MG PO (04:09)
[2023-03-20] MEDS: Cyclobenzaprine HCl 5 MG TABLET PO (04:10)
--- NOTE | 2023-03-20 05:56 | PC.NURSE ---
Upon transfer to [facility] patient slid himself from the bed to the stretcher, became dyspneic, inspiratory/expiratory wheezes throughout. O2 sats >97% on room air, hacking loose cough causing patient to vomit x1. MD Mccord notified, Neb treatments ordered with effect. On Heparin gtt infusing as ordered, PTT obtained per protocol and titrated as ordered. NSR on child monitor. Denies chest pain/discomfort/tightness.
[2023-03-20 06:22] LABS: Hematocrit 37.9 % (42.0-52.0); Hemoglobin 12.9 g/dl (14.0-18.0); Mean Corpuscular Hemoglobin 30.6 pg (27.0-33.0); Mean Platelet Volume 10.6 fL (9.4-12.4); Platelet Count 214 X10*3/uL (160-400); Red Blood Count 4.21 X10*6/uL (4.60-5.80); Red Cell Distribution Width 11.7 % (11.0-16.0); White Blood Count 4.8 X10*3/uL (4.8-10.8)
[2023-03-20 06:32] LABS: Prothrombin Time 12.7 SEC (11.1-13.3)
[2023-03-20 06:36] LABS: Anion Gap 12 (12-20); Blood Urea Nitrogen 12 mg/dL (9-16); Calcium 8.5 mg/dL (8.4-10.2); Carbon Dioxide 24 mmol/L (22-29); Chloride 106 mmol/L (96-108); Creatinine Clr Calc Pharmacy 116.4; Estimated Glomerular Filt Rate > 60; Glucose Random 100 mg/dL (60-115); Potassium 3.6 mmol/L (3.3-5.1); Sodium 138 mmol/L (135-145)
[2023-03-20 06:48] LABS: Troponin-I High Sensitivity 179.6 ng/L (<3.5-35.0)
--- NOTE | 2023-03-20 07:00 | CA_ITS ---
Transthoracic Echocardiogram Patient (Last, First, Middle): Garrett Erwin, Gender: Male Date of : 1965 Age: 57 Procedure Date: 03/20/2023 Procedure Type: Transthoracic Echocardiogram [place] [facility] [place]: 175.26 cm Weight: 72.58 kg BSA: 1.88 m2 Heart Rate: 70 bpm BP: 127 / 70 mmHg Lever Tender: SB Referring MD: Jelani Mccord MD Frame Maker: Randell Luna MD Symptoms: NSTEMI Study Quality: Adequate ECG Rhythm: Sinus Conclusions: - 1. Normal LV ejection fraction of 60 65% with regional wall motion abnormality apparent in RCA territory 2. Normal cardiac valvular Doppler Findings Procedure Information The patient declines contrast. Left Ventricle Normal left ventricular size, thickness, and systolic function. The visually estimated ejection fraction is between 60-65%. Spectral Doppler is indicative of a normal filling pattern. Wall Motion Rest Echo Findings The apex, apical inferior, and apical septum segments are hypokinetic. All other scored wall segments showed normal motion. Right Ventricle Normal right ventricular cavity size and systolic function. Atria Both atria are normal in size. There is no evidence of interatrial shunt. Aortic Valve The aortic valve structure and function is likely normal. There is no aortic valve stenosis. There is no aortic valve regurgitation. Mitral Valve Normal mitral valve structure and function. There is trace mitral valve regurgitation. There is no mitral valve stenosis. Pulmonic Valve The pulmonic valve is likely normal. Tricuspid Valve Normal tricuspid valve structure. Tricuspid regurgitation envelope is inadequate for calculation of right ventricular systolic pressure. Normal right atrial pressure. Great Vessels All visible segments of the aorta are normal in size. The pulmonary artery was not well visualized. Venous The inferior vena cava is normal in size and collapses greater than 50% with inspiration. Pericardium/Pleural There is no evidence of pericardial effusion. Prior Study Comparison No prior study available for comparison. Measurements 2D Linear Measurements IVSd: 0.89 0.6-0.9/0.6-1.0 cm LVIDd: 4.72 3.9-5.3/4.2-5.9 cm LVIDd Index: 2.51 2.4-3.2/2.2-3.1 cm/m2 LVIDs: 3.68 2.0-3.6 cm LVPWd: 0.79 0.7-1.1 cm LA Diam: 2.90 2.7-3.8/3.0-4.0 cm LAIDs Index: 1.54 1.5-2.3 cm/m2 LV Mass: 162.89 67-162/88-224 g LV Mass Index: 86.64 43-95/49-115 g/m2 LVOT Diam: 2.20 3.0+(-)1.3 cm 2D Systolic Function EF 4C: 72.30 >55% EF 2C: 60.50 >55% EF BiP: 65.30 >55% Mitral Valve MV Pk E: 0.72 MV PK A: 0.65 MV Decel Time: 215.00 E/A: 1.10 E'Lateral: 9.79 E'Medial: 7.51 E/E' Med: 9.60 E/E' Lat: 7.40 PHT: 63.00 MVA PHT: 3.49 Decel [place]: 3.35 Aortic Valve AoV Pk Livan: 1.82 AoV Pk Grad: 13.00 FABIANO: 2.57 LVOT LVOT Pk Livan: 1.23 LVOT Mn Livan: 0.86 LVOT VTI: 0.24 LVOT Pk Grad: 6.00 LVOT Mn Grad: 3.00 LVOT Diam: 2.20 LVOT Area: 3.80 Diastolic Function MV Pk E: 0.72 MV Pk A: 0.65 E/A: 1.10 E'Medial: 7.51 E/E' Med: 9.60 E' Laterial: 9.79 E/E' Lat: 7.40 Right Ventricle TAPSE (mm): 17.10 TVS' Livan: 11.40 Tricuspid Valve RA Press: 8.00 Great Vessels Aorta Sinus of Valsalva: 3.30 2.0-3.5 cm Ao Asc: 2.90 2.1-3.4 cm Pulmonary Veins Pulm Vein S/D 1.80 Pulmonary Valve PV Pk Livan: 1.16 Peak PV Grad: 5.00 Updated in Other Vendor System with Status of Final Randell Luna MD electronically signed on 03/21/2023 3:53:32 PM with status of Final
[2023-03-20] MEDS: Fluticasone/Vilanterol 200/25 BLST.W.DEV 1 PUFF INHALE (07:44)
[2023-03-20] MEDS: Tiotropium Bromide 2.5 mcg 1 PUFF/2.5 MCG MIST.INHAL INHALE (07:44)
--- NOTE | 2023-03-20 08:19 | MHC.CM.NN ---
CM met with Patient at bedside. Patient lives alone in an apartment and uses a cane to assist with mobility. Home/self care is the goal and CM has initiated and will follow for dc planning. PCP is Dr. Jack Santo.
[2023-03-20] MEDS: buPROPion HCl XL 150 MG TAB.ER.24H PO (09:29)
[2023-03-20] MEDS: Aspirin Enteric Coated 81 MG TABLET.DR PO (09:29)
[2023-03-20] MEDS: Gabapentin 600 MG TABLET PO ×2 (09:29→15:33)
[2023-03-20] MEDS: Metoprolol Tartrate 25 MG TABLET PO ×2 (09:29→15:34)
[2023-03-20] MEDS: busPIRone HCl 10 MG TABLET PO (09:29)
[2023-03-20 09:44] LABS: PTT Heparin Drip 60.6 SEC (53-77.9)
--- NOTE | 2023-03-20 10:10 | P.CONCA_ITS ---
History of Present Illness History of Present Illness Date of Service: 03/20/23 Requesting physician: Ashutosh Hutson Consult reason: other (Acute coronary syndrome) Chief complaint: Chest pain Narrative: I was consulted to see Garrett in cardiology consultation today for acute coronary syndrome. 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 He also has history of COPD. No history of hypertension, diabetes or vascular disease. He was in usual state of health yesterday when he went out for smoke. He then developed sudden- onset severe chest pain which he describes as sharp pressure in the precordial area. It was 10 are obtained and said he felt really bad. He waited for 5 minutes the symptoms persisted and he called 911. By the time EMS came his pain was improved to 5 to 6/10 in severity. Then they gave him aspirin and sublingual nitroglycerin. His symptoms then dissipated. By the time he came to the emergency room his symptoms were improved. EKG did not show any acute changes. However cardiac markers initially were normal N/C 3 hours later were elevated consistent with acute coronary syndrome. He is remained chest pain- free. Bedside echo reviewed briefly shows normal LV ejection fraction with regional wall motion abnormality in inferior and inferolateral wall. Patient denies any prior exertional chest pain. He said he can not walk long distances due to back pain. He is very committed to stop smoking in the long run. Review of Systems 2 Constitutional: Constitutional: Reports no additional constitutional complaints Eyes: Eyes: Reports no additional eye complaints ENT: Reports system reviewed and no additional complaints, except as documented Cardiovascular: Cardiovascular: Reports chest pain at rest, Denies leg edema, Denies lightheadedness, Denies Loss of Consciousness, Denies palpitations and Denies dyspnea Respiratory: Respiratory: Reports no additional respiratory complaints and Denies dyspnea Gastrointestinal: Gastrointestinal: Reports no additional gastrointestinal complaints Genitourinary: Genitourinary: Reports no additional male genitourinary complaints Musculoskeletal: Musculoskeletal: Reports back pain Integumentary/Breasts: Skin/Breast: Reports system reviewed and no additional complaints, except as docu Neurologic: Reports restless legs and Reports paresthesias Psychiatric: Psychiatric: Reports no additional psychiatric complaints Endocrine: Endocrine: Reports no additional endocrine complaints and Denies palpitations PMFSH Past Medical History Medical History GERD without esophagitis Right foot drop Smoker Anxiety Lumbar degenerative disc disease Compression fracture of lumbosacral spine COPD (chronic obstructive pulmonary disease) Family History Family History Father Lung cancer Mother HTN (hypertension) Diabetes Surgical History Surgical History History of ankle surgery Previous back surgery Social History Social History Household Members: None Housing: Apartment Do you presently have visiting nurse or other home services: No Alcohol intake: former Patient Tobacco Use Status: Current everyday Tobacco user Tobacco use type: Cigarette Cigarette Packs Per Day: 1 Cigarettes Per Day: 20.0 e-Cigarette/Vaping Use: Never Used Second Hand Smoke Exposure: Yes service: No Current occupational status: disabled Cognitive needs: No Hearing needs: No Vision needs: No Meds Allergies Allergy/AdvReac Type Severity Reaction Status Date / Time tomato [Tomato] Allergy Severe RASH Verified 02/15/23 11:17 mushroom Allergy Anaphylaxis Verified 03/19/23 16:21 shrimp Allergy Anaphylaxis Verified 03/19/23 16:21 Active Medications: Current Medications Acetaminophen (Acetaminophen 325 Mg Tablet) 650 mg PO Q6H PRN PRN Reason: Pain, Mild (Pain Scale 1-3) Last Admin: 03/20/23 04:09 Dose: 650 mg Albuterol Sulfate (Albuterol Sulfate 90 Mcg 8 Gm Inhaler) 2 puff INHALE Q6H PRN PRN Reason: shortness of breath or wheezing Albuterol/Ipratropium (Albuterol/Iprat 2.5/0.5mg 3 Ml Ampul.Neb) 3 ml INHALE RQ4H WHILE AWAKE PRN PRN Reason: Wheezing Last Admin: 03/20/23 00:46 Dose: 3 ml Aspirin (Aspirin Enteric Coated 81 Mg Tablet.Dr) 81 mg PO DAILY [facility] Last Admin: 03/20/23 09:29 Dose: 81 mg Atorvastatin Calcium (Atorvastatin Calcium 40 Mg Tablet) 40 mg PO BEDTIME [facility] Last Admin: 03/19/23 21:59 Dose: 40 mg Bupropion HCl (Bupropion Hcl Xl 150 Mg Tab.Er.24h) 150 mg PO DAILY [facility] Last Admin: 03/20/23 09:29 Dose: 150 mg Buspirone HCl (Buspirone Hcl 10 Mg Tablet) 10 mg PO BID [facility] Last Admin: 03/20/23 09:29 Dose: 10 mg Cyclobenzaprine HCl (Cyclobenzaprine Hcl 5 Mg Tablet) 5 mg PO TID PRN PRN Reason: for muscle spasm Last Admin: 03/20/23 04:10 Dose: 5 mg Doxepin HCl (Doxepin Hcl 25 Mg Capsule) 50 mg PO BEDTIME [facility] Fluticasone/Vilanterol (Fluticasone/Vilanterol 200/25 Blst.W.Dev) 1 puff INHALE RDAILY [facility] Last Admin: 03/20/23 07:44 Dose: 1 puff Gabapentin (Gabapentin 600 Mg Tablet) 600 mg PO TID [facility] Last Admin: 03/20/23 09:29 Dose: 600 mg Heparin Sodium (Porcine) (Heparin Sodium,Porcine 5,000 Unit/Ml Vial) 2,800 unit 40 unit/kg (2800 unit) IVPUSH PROTOCOL BOLUS PRN; Protocol PRN Reason: 40 unit/kg - Heparin Protocol Heparin Sodium (Porcine) (Heparin Sodium,Porcine 5,000 Unit/Ml Vial) 5,600 unit 80 unit/kg (5600 unit) IVPUSH PROTOCOL BOLUS PRN; Protocol PRN Reason: 80 unit/kg - Heparin Protocol Heparin Sodium/Sodium Chloride (Heparin Sodium,Porcine/1/2ns) 25,000 unit in 250 mls @ 0 mls/hr IVCONT .Q0M [facility]; Protocol Last Titration: 03/20/23 09:56 Dose: 10 units/kg/hr, 7.05 mls/hr Melatonin (Melatonin 3 Mg Tablet) 6 mg PO BEDTIME PRN PRN Reason: Insomnia Last Admin: 03/19/23 22:00 Dose: 6 mg Metoprolol Tartrate (Metoprolol Tartrate 25 Mg Tablet) 25 mg PO TID [facility]; Protocol Last Admin: 03/20/23 09:29 Dose: 25 mg Ondansetron HCl (Ondansetron Hcl 4 Mg/2 Ml Vial) 4 mg IVPUSH Q8H PRN PRN Reason: Nausea and Vomiting Sodium Chloride (0.9 % Sodium Chloride Flush 3 Ml Syringe) 3 ml IVFLUSH QSHIFT [facility] Last Admin: 03/20/23 09:29 Dose: Not Given Tiotropium [place] (Tiotropium [place] 2.5 Mcg 1 Puff/2.5 Mcg Mist.Inhal) 1 puff INHALE RDMIRTA [facility] Last Admin: 03/20/23 07:44 Dose: 1 puff Physical Exam 2 Vital Signs: Vital Signs: Last Vital Signs Temp 97.9 F 03/20/23 07:18 Pulse 74 03/20/23 07:47 Resp 16 03/20/23 07:47 BP 127/70 03/20/23 07:18 Pulse Ox 98 03/20/23 07:18 O2 Del Method Room Air 03/20/23 07:18 BMI result Body Mass Index 23.8 Const: General: cooperative, comfortable, alert, awake and other (Restless due to lower extremity discomfort) Nutritional Appearance: average body habitus Orientation/consciousness: patient oriented x3 Limitations: no limitations HEENT: Head: Yes normocephalic and Yes atraumatic Neck: Neck: Yes trachea midline, Yes supple and Yes no JVD Resp: Effort & Inspection: normal respiratory effort Auscultation: clear to auscultation bilaterally Cardio: Jugular venous distension: no JVD Palpation: normal PMI Rate: r egular rate Rhythm: regular rhythm Heart sounds: S1 normal heart sound present, S2 normal heart sound present, no click, no gallops, no murmurs and no rubs GI: Auscultation: normal bowel sounds Skin: General skin exam: no rashes or lesions noted Neuro: General: patient oriented x3 and no focal motor deficits Extrem: General: Yes no clubbing, cyanosis or edema Objective Labs and Meds 03/20/23 06:06 03/20/23 06:06 Lab results: Laboratory Results - last 24 hr 03/19/23 03/19/23 03/20/23 16:26 19:35 02:51 WBC 3.7 L RBC 4.68 Hgb 14.5 Hct 43.4 MCV 92.7 MCH 31.0 MCHC 33.4 RDW 11.8 Plt Count 239 MPV 10.6 Immature Gran % (Auto) 0.0 Neut % (Auto) 59.8 Lymph % (Auto) 28.5 [place] % (Auto) 8.7 Eos % (Auto) 2.2 Baso % (Auto) 0.8 Lymph # (Auto) 1.1 L [place] # (Auto) 0.3 Eos # (Auto) 0.1 Baso # (Auto) 0.0 Abs Immat Gran (auto) 0.00 Absolute Neuts (auto) 2.2 Absolute Nucleated RBC 0.000 Nucleated RBC % (auto) 0.0 PT 12.0 INR 1.0 APTT 29.5 aPTT Heparin Protocol 82.1 H D-Dimer High Sensitivty < 150 Sodium 139 Potassium 3.8 Chloride 106 Carbon Dioxide 26 Anion Gap 11 L BUN 11 Creatinine 0.74 Estim Creat Clear Calc 110.1 Estimated GFR > 60 Random Glucose 137 H Calcium 8.7 Magnesium 2.1 Total Bilirubin 0.7 AST 26 ALT 38 Alkaline Phosphatase 68 Troponin I High Sens 14.6 328.4 H* D B-Natriuretic Peptide 22 Total Protein 6.5 Albumin 3.8 Lipase 20 COVID-19 (ANDRA) Negative COVID-19 Clin Com See Note Influenza Type A (MOLLY) Negative Influenza Type B (MOLLY) Negative Influenza A & B Note See Note 03/20/23 03/20/23 06:06 09:27 WBC 4.8 RBC 4.21 L Hgb 12.9 L Hct 37.9 L MCV 90.0 MCH 30.6 MCHC 34.0 RDW 11.7 Plt Count 214 MPV 10.6 Immature Gran % (Auto) Neut % (Auto) Lymph % (Auto) [place] % (Auto) Eos % (Auto) Baso % (Auto) Lymph # (Auto) [place] # (Auto) Eos # (Auto) Baso # (Auto) Abs Immat Gran (auto) Absolute Neuts (auto) Absolute Nucleated RBC 0.000 Nucleated RBC % (auto) 0.0 PT 12.7 INR 1.0 APTT aPTT Heparin Protocol 60.6 D D-Dimer High Sensitivty Sodium 138 Potassium 3.6 Chloride 106 Carbon Dioxide 24 Anion Gap 12 BUN 12 Creatinine 0.70 Estim Creat Clear Calc 116.4 Estimated GFR > 60 Random Glucose 100 Calcium 8.5 Magnesium Total Bilirubin AST ALT Alkaline Phosphatase Troponin I High Sens 179.6 H* B-Natriuretic Peptide Total Protein Albumin Lipase COVID-19 (ANDRA) COVID-19 Clin Com Influenza Type A (MOLLY) Influenza Type B (MOLLY) Influenza A & B Note EKG shows normal sinus rhythm with no acute ST wave changes Imaging Radiologist's impression: Impressions Chest X-Ray 03/19/23 17:04 IMPRESSION: No evidence for acute disease in the chest Assessment and Plan (1) Acute coronary syndrome: Status: Acute Acute coronary syndrome in this middle-aged man with only risk factor of smoking. Typical symptoms with elevated cardiac markers high risk features with regional wall motion abnormality RCA circumflex territory on echocardiogram. Patient is currently on aspirin and statin IV heparin. Please start metoprolol therapy. I thing benefit from invasive approach with cardiac catheterization. This was discussed with him. We discussed the need for cardiac catheterization including risk, benefits, alternatives 2nd opinion. He understands agrees. Further treatment based on the finding of cardiac catheterization. Arrangements made for patient to be transferred to [facility]. Will follow up as outpatient Procedures Date of Service Date of Service: 03/20/23
--- NOTE | 2023-03-20 11:32 | PM.DS ---
DS: Providers Provider Date of Service: 03/20/23 Date of admission: 03/19/23 21:02 Primary care physician: Unknown Physician Consults: 03/19/23 21:02 Consult to Cardiology Routine Consulting Provider: [facility] [place] [place] Cardiovascular Services Reason for consultation: NSTEMI Has provider been notified: Yes DS: Transfer Hospital Acceptance Accepting Provider: Admission HPI Chief Complaint: Chest Pain This is a 57-year-old male with pertinent history of COPD not on home oxygen, lumbar radiculopathy, mood disorder, tobacco use disorder presents to the emergency department for evaluation of chest discomfort. Patient states he went to smoke his last cigarette and was walking around the house before he had sudden-onset substernal chest discomfort. He sat down due to the chest discomfort. It was associated with mild dyspnea, sweating. The midsternal chest discomfort radiated to the jaw and was associated with left arm numbness. Patient states it lasted for about 5 minutes until EMS gave him sublingual nitroglycerin. No history of similar complaints in the past. No history of cardiac stenting or CABG. Patient states he smokes about a pack of cigarettes every day. His mom had heart attack at age of 38. He is former cocaine use disorder. No fever, chills, palpitations, abdominal pain, changes in urinary or bowel habits. In the emergency department, troponin was found to be elevated and Cardiology was consulted. Patient was initiated on IV heparin. Patient received 324 mg aspirin by EMS. Hospital course: The patient presented with chest pain and was found to have elevated troponin I levels and regional wall motion abnormalities in the RCA territory. He is being treated with ASA, heparin, metoprolol, Lipitor, and Cardiology, and advised to undergo cardiac catheterization for coronary assessment and further management. He is agreeable. Presently, he is hemodynamically stable and has no active chest pain DS: Diagnosis Discharge Diagnosis (1) Acute coronary syndrome: Status: Acute DS: Summary Time Attestation Discharge coordination time: Greater than 30 minutes Quality: Safe Use of Opioids Does Pt have an Active Cancer Diagnosis on the Problem List?: No Quality: Stroke Does the patient have a stroke diagnosis?: No Physical Exam Vital Signs: Vital Signs: Last Vital Signs Temp 97.9 F 03/20/23 07:18 Pulse 74 03/20/23 07:47 Resp 16 03/20/23 07:47 BP 127/70 03/20/23 07:18 Pulse Ox 98 01/30/24 07:18 O2 Del Method Room Air 03/20/23 07:18 BMI result Body Mass Index 23.8 Const: Other: General: AO X 3, no acute distress Resp: CTA bilateral CVS: S1,S2,RRR GI: +BS, NT, no distention Skin: No rash Neuro: motor grossly intact Psych: appropriate affect DS: Data Data Completed and Pending Labs on day of discharge: Laboratory Results - last 24 hr 03/19/23 03/19/23 03/20/23 16:26 19:35 02:51 WBC 3.7 L RBC 4.68 Hgb 14.5 Hct 43.4 MCV 92.7 MCH 31.0 MCHC 33.4 RDW 11.8 Plt Count 239 MPV 10.6 Immature Gran % (Auto) 0.0 Neut % (Auto) 59.8 Lymph % (Auto) 28.5 [place] % (Auto) 8.7 Eos % (Auto) 2.2 Baso % (Auto) 0.8 Lymph # (Auto) 1.1 L [place] # (Auto) 0.3 Eos # (Auto) 0.1 Baso # (Auto) 0.0 Abs Immat Gran (auto) 0.00 Absolute Neuts (auto) 2.2 Absolute Nucleated RBC 0.000 Nucleated RBC % (auto) 0.0 PT 12.0 INR 1.0 APTT 29.5 aPTT Heparin Protocol 82.1 H D-Dimer High Sensitivty < 150 Sodium 139 Potassium 3.8 Chloride 106 Carbon Dioxide 26 Anion Gap 11 L BUN 11 Creatinine 0.74 Estim Creat Clear Calc 110.1 Estimated GFR > 60 Random Glucose 137 H Calcium 8.7 Magnesium 2.1 Total Bilirubin 0.7 AST 26 ALT 38 Alkaline Phosphatase 68 Troponin I High Sens 14.6 328.4 H* D B-Natriuretic Peptide 22 Total Protein 6.5 Albumin 3.8 Lipase 20 COVID-19 (ANDRA) Negative COVID-19 Clin Com See Note Influenza Type A (MOLLY) Negative Influenza Type B (MOLLY) Negative Influenza A & B Note See Note 03/20/23 03/20/23 06:06 09:27 WBC 4.8 RBC 4.21 L Hgb 12.9 L Hct 37.9 L MCV 90.0 MCH 30.6 MCHC 34.0 RDW 11.7 Plt Count 214 MPV 10.6 Immature Gran % (Auto) Neut % (Auto) Lymph % (Auto) [place] % (Auto) Eos % (Auto) Baso % (Auto) Lymph # (Auto) [place] # (Auto) Eos # (Auto) Baso # (Auto) Abs Immat Gran (auto) Absolute Neuts (auto) Absolute Nucleated RBC 0.000 Nucleated RBC % (auto) 0.0 PT 12.7 INR 1.0 APTT aPTT Heparin Protocol 60.6 D D-Dimer High Sensitivty Sodium 138 Potassium 3.6 Chloride 106 Carbon Dioxide 24 Anion Gap 12 BUN 12 Creatinine 0.70 Estim Creat Clear Calc 116.4 Estimated GFR > 60 Random Glucose 100 Calcium 8.5 Magnesium Total Bilirubin AST ALT Alkaline Phosphatase Troponin I High Sens 179.6 H* B-Natriuretic Peptide Total Protein Albumin Lipase COVID-19 (ANDRA) COVID-19 Clin Com Influenza Type A (MOLLY) Influenza Type B (MOLLY) Influenza A & B Note Discharge Plan Discharge Anticipated Discharge Date/Time: 03/20/23 11:34 Patient Disposition: Xfer Acute Care Hospital Discharge Diagnosis: Acute NSTEMI Referrals: Physician,Unknown J [Primary Care Provider] - 1 Week Discharge Medications: New atorvastatin 40 mg Tablet 80 mg PO BEDTIME Qty: 30 0RF aspirin 81 mg Tablet,Delayed Release (Dr/Ec) 81 mg PO DAILY Qty: 20 0RF metoprolol tartrate 25 mg Tablet 25 mg PO TID Qty: 30 0RF Protocol: Hold for SBP/HR < HOLD for SBP < : 90 HOLD for HR < : 60 heparin(porcine) in 0.45% NaCl 25,000 unit/250 mL Parenteral Solution 25,000 unit continuous IV infusion .Q0M Qty: 6000 0RF Rx Instructions: Follow [facility] Heparin protocol Continued fluticasone furoate-vilanterol [Breo Ellipta] 200-25 mcg/dose blister with device 1 inh inhalation DAILY Qty: 60 5RF Incruse Ellipta 62.5 mcg/actuation blister with device 1 inh inhalation BEDTIME 30 Days Qty: 30 5RF cyclobenzaprine 5 mg tablet 5 mg PO TID PRN (Reason: for muscle spasm) Qty: 90 1RF doxepin 50 mg capsule 50 mg PO BEDTIME Qty: 30 1RF bupropion HCl 150 mg tablet extended release 24 hr 150 mg PO QAM Qty: 30 1RF buspirone 10 mg tablet 10 mg PO BID Qty: 60 1RF gabapentin 600 mg tablet 600 mg PO TID 30 Days Qty: 90 3RF (DME) LUMBAR BACK BRACE See Rx Instructions .Route .MEDSUPPLY Qty: 1 0RF Rx Instructions: Use as directed for increasing low back pain albuterol sulfate [Ventolin HFA] 90 mcg/actuation HFA aerosol inhaler 2 puff inhalation Q6H PRN (Reason: shortness of breath or wheezing) 30 Days Qty: 18 3RF Discharge Orders: Discharge Order (Routine); Ordered 03/20/23 Ordered By: Ashutosh Hutson Diet: Advance to usual diet Activity on Discharge: As tolerated Stand Alone Forms: Patient Portal Discharge page Care Plan Goals: Cardiac work up with cardiac catherization at [facility] Health Concerns: Acute TN (Heart attack) Plan of Treatment: To have cardiac catherization at [facility] continue hparin, lipitor, aspirin and metoprolol Assessment: see
--- NOTE | 2023-03-20 12:30 | MHC.CM.PN ---
Patient will transfer to [facility] for a Cardiac Cath.
[2023-03-20 14:53] LABS: PTT Heparin Drip 29.3 SEC (53-77.9)
[2023-03-20] MEDS: Heparin Sodium,Porcine 5,000 UNIT/ML VIAL 5600 UNIT IVPUSH (15:31)
== END 2023-03-20 16:31 | disposition short-term general hospital (02) | DRG 190 ==
LOC: HO.ED 16:36 → HO.EDOVER 21:06 → HO.IMC 23:18
PROVIDERS: Nurse Practitioner Family; Admitting Provider Student in an Organized Health Care Education/Training Program; Emergency Provider Emergency Medicine; PCP Internal Medicine; Visit Provider Internal Medicine
DX: I21.4 Non-ST elevation (NSTEMI) myocardial infarction (principal); F17.210 Nicotine dependence, cigarettes, uncomplicated; J44.9 Chronic obstructive pulmonary disease, unspecified; M54.16 Radiculopathy, lumbar region; F39 Unspecified mood [affective] disorder; Z20.822 Contact with and (suspected) exposure to COVID-19; Z71.6 Tobacco abuse counseling; Z79.51 Long term (current) use of inhaled steroids; Z79.82 Long term (current) use of aspirin; Z79.899 Other long term (current) drug therapy
CPT/HCPCS: 36415; 71046; 80048; 80053; 83690; 83735; 83880; 84484; 85025; 85027; 85379; 85610; 85730; 87502; 87635; 93005; 93306; 94640; 99285; J1644; Q9957

== ENCOUNTER 2023-03-19 21:02 | Outpatient (BNV) | payer OTHER, SELFPAY | END 2023-03-20 07:00 | PROVIDERS: Admitting Provider Student in an Organized Health Care Education/Training Program; Emergency Provider Emergency Medicine; PCP Internal Medicine; Visit Provider Internal Medicine Cardiovascular Disease | DX: I21.4 Non-ST elevation (NSTEMI) myocardial infarction (principal) | CPT/HCPCS: 93306 ==

== ENCOUNTER → 2023-03-19 21:02 | Outpatient (BNV) | payer OTHER, SELFPAY | PROVIDERS: Admitting Provider Student in an Organized Health Care Education/Training Program; Emergency Provider Emergency Medicine; Visit Provider Student in an Organized Health Care Education/Training Program | DX: I24.9 Acute ischemic heart disease, unspecified (principal); I21.4 Non-ST elevation (NSTEMI) myocardial infarction; M54.16 Radiculopathy, lumbar region | CPT/HCPCS: 99222; 99239 ==

== ENCOUNTER → 2023-03-19 21:02 | Outpatient (BNV) | payer OTHER, SELFPAY | PROVIDERS: Admitting Provider Student in an Organized Health Care Education/Training Program; Emergency Provider Emergency Medicine; Visit Provider Internal Medicine Cardiovascular Disease | DX: I24.9 Acute ischemic heart disease, unspecified (principal) | CPT/HCPCS: 93010; 99222 ==

== ENCOUNTER 2023-04-11 14:50 | Outpatient (AMB) | payer OTHER, SELFPAY ==
[2023-04-11 14:51] VITALS: BP 112/74; PULSE 77; O2SAT 99; BMI 23.0
--- NOTE | 2023-04-11 14:51 | MHC.PC.OV ---
Vital Signs 04/11/23 14:51 Height 5 ft 9 in Weight 70.76 kg BMI 23.0 BP 112/74 Blood Pressure Location Lt brachial Position Sitting Pulse 77 Pulse Source Pulse Oximeter Pulse Oximetry (%) 99 Oxygen Delivery Method Room Air Intake Visit Reasons: F/up [facility] [place] ED visit Discharged 04/02/23 Intake Note: Patient is here for hospital discharge follow up. 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 Discharge medications reviewed and reconciled. He presented to [facility] ED on 03/19 due to severe retrosternal chest discomfort radiating to the left arm that occurred after smoking a cigarette. There is associated dyspnea and diaphoresis and called EMS. Pain resolved with sublingual nitroglycerin. He is also for a cocaine abuser but states he has been clean for about 20 years. He is also a former alcohol abuser and has been sober for 2 years. In the ED, hematology studies unremarkable, coagulation studies within normal limits, renal function normal, electrolyte levels normal. Initial troponin 14.6, repeat 328.4. EKG showed normal sinus rhythm, no acute ischemic changes. He was admitted to hospitalist service on heparin drip per protocol. Echocardiogram showed normal LV systolic function with regional wall motion abnormalities in the RCA region. He was followed by Cardiology and was transferred to [facility] for cardiac catheterization on 03/20. He was admitted to [facility] from 03/20-03/22 where he was continued on heparin drip and was taken to cardiac catheterization which demonstrated no significant coronary artery disease, possible coronary vasospasm as cause of symptoms. Repeat echocardiogram demonstrated normal LV systolic function with EF 55-60%. He was started on Plavix, amlodipine, atorvastatin, and aspirin 81 mg. He was hemodynamically stable and was discharged home. LDL while in the hospital was 88, hemoglobin A1c 5.6%. Today he states he has not had any recurrence of chest pain. Has not smoked any cigarettes since 03/20 and is not using NRT. 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 Since quitting, he states his chronic cough has resolved and he has not needed his albuterol inhaler. Still using breo inhaler. [facility], [facility] Medical History (Updated 04/12/23 @ 12:56 by BOLIVAR Diggs) Coronary vasospasm GERD without esophagitis Right foot drop Smoker Anxiety Lumbar degenerative disc disease Compression fracture of lumbosacral spine COPD (chronic obstructive pulmonary disease) Surgical History (Updated 04/12/23 @ 12:53 by BOLIVAR Diggs) H/O cardiac catheterization History of ankle surgery Previous back surgery Family History Father Lung cancer Mother HTN (hypertension) Diabetes Social History Household Members: None Housing: Apartment Do you presently have visiting nurse or other home services: No Alcohol intake: former Patient Tobacco Use Status: Current everyday Tobacco user Tobacco use type: Cigarette Cigarette Packs Per Day: 1 Cigarettes Per Day: 20.0 e-Cigarette/Vaping Use: Never Used Second Hand Smoke Exposure: Yes service: No Current occupational status: disabled Cognitive needs: No Hearing needs: No Vision needs: No Questionnaire Thrive Questionnaire Date Thrive assessed: 03/20/23 AUDIT C Alcohol Use Questionnaire (AUDIT-C) 1. How often do you have a drink containing alcohol?: Never 3. How often do you have six or more drinks on one occasion?: Never Total Score: 0 Score Reviewed/Action Taken: Yes KATIANA-7 AMB Questionnaire KATIANA-7 Date KATIANA - 7 assessed: 10/13/22 Source: Developed by Drs. Eleuterio Henriquez, Ruthy Mares, Santi Madison and colleagues, with an educational robert from [employer]. Review of Systems Const All systems reviewed & are unremarkable except as noted in HPI and below Physical exam (Primary Care) Vital Signs: Last Vital Signs Pulse 77 04/11/23 14:51 BP 112/74 04/11/23 14:51 Pulse Ox 99 04/11/23 14:51 Oxygen Delivery Method Room Air 02/21/24 14:51 BMI result Body Mass Index 23.0 Tobacco/Smoking Status: Tobacco use Status Tobacco use date assessed 04/11/23 04/11/23 14:57 Patient Tobacco Use Status Current everyday Tobacco 04/11/23 14:52 Tobacco use type Cigarette 04/11/23 14:52 e-Cigarette/Vaping Use Never Used 04/11/23 14:52 Thrive Assessment: Date of Thrive Assessment Date Thrive assessed 03/20/23 04/11/23 14:52 Const Other: Constitutional - Awake and Alert, No apparent distress Eyes - PERRLA, EOMI Cardiovascular - S1S2, RRR, No edema Respiratory - Normal lung expansion, Normal respiratory effort, No respiratory distress, CTA bilaterally Gastrointestinal - NT / ND; +BS; No rebound or guarding Extremities - no calf tenderness bilaterally, no swelling Skin - Warm/Dry Neurological - Alert & oriented x3 Psychological - Appropriate affect Results Reviewed Results Reviewed: cbc, bmp, bnp, coags, trop, ekg, echo, card consult, [facility] discharge, [facility] echo, cath report, [facility] discharge summary Assessment and Plan Assessment & Plan (1) Coronary vasospasm: Code(s): I20.1 - Angina pectoris with documented spasm Plan: NO recurrence of symptoms. Cardiac catheterization 02/2023 negative for any significant coronary artery disease, coronary vasospasm likely cause of symptoms. DIscussed this was likely directly related to his tobacco history. Advised to continue away from any cigarettes. Continue asa, plavix, almodipine, atorvastatin. LDL 88, goal <70. Follow up with cardiology as scheduled. Blood pressure well controlled at 112/74. (2) COPD (chronic obstructive pulmonary disease): Code(s): J44.9 - Chronic obstructive pulmonary disease, unspecified Qualifiers: COPD type: unspecified COPD Qualified Code(s): J44.9 - Chronic obstructive pulmonary disease, unspecified Plan: No acute exacerbation. Reports symptoms have improved since quitting smoking. Encouraged to continue with cessation from all tobacco prior. Continue with Breo inhaler as prescribed. Use albuterol inhaler only as needed for shortness of breath and wheezing. (3) Smoker: Code(s): F17.200 - Nicotine dependence, unspecified, uncomplicated Plan: Nicotine dependence in early remission. He is congratulated on his success thus far. He has not been using NRT and does not feel he needs this at this time. Medications: New blood pressure monitor (Blood Pressure Kit) As directed 1 ea 0RF blood pressure monitor (Blood Pressure Kit) As directed 1 ea 0RF Coding Level of Care Code Est Pt Level 5 (46310) Diagnoses Coronary vasospasm I20.1 Chronic obstructive pulmonary disease, unspecified COPD type J44.9 COPD type: unspecified COPD Smoker F17.200 Time Spent (min) 45 Comment time spent reviewing above, exam/interview, documentation time
== END 2023-04-11 15:33 | disposition home or self-care (01) ==
PROVIDERS: PCP Internal Medicine; Visit Provider Physician Assistant
DX: I20.1 Angina pectoris with documented spasm (principal); J44.9 Chronic obstructive pulmonary disease, unspecified; F17.210 Nicotine dependence, cigarettes, uncomplicated
CPT/HCPCS: 99215

== ENCOUNTER 2023-04-17 12:52 | Outpatient (AMB) | payer OTHER, SELFPAY ==
[2023-04-17 13:29] VITALS: BP 110/60; PULSE 68; BMI 22.4
--- NOTE | 2023-04-17 13:29 | A.OFFVIS_ITS ---
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 He presented for chest pain and was found to have elevated troponin and some wall motion abnormalities in the RCA territory then was transferred to [facility] for cardiac catheterization. His cardiac catherization showed minimal irregularties and repeat echo showed no definitive wall motion abnormality and the chest pains were thought to be a possible coronary vasospasm. . Since discharge he reports he has been doing well and quit smoking and has been eating much better. Right radial site is healing appriopiately with no erythema, tenderness, or swelling. [facility] Medical History (Updated 04/18/23 @ 07:53 by Melissa Hendrickson NP) Coronary vasospasm GERD without esophagitis Right foot drop Smoker Anxiety Lumbar degenerative disc disease Compression fracture of lumbosacral spine COPD (chronic obstructive pulmonary disease) Surgical History (Updated 04/17/23 @ 13:43 by Melissa Hendrickson NP) S/P cardiac cath H/O cardiac catheterization History of ankle surgery Previous back surgery Family History Father Lung cancer Mother HTN (hypertension) Diabetes Social History (Updated 04/17/23 @ 13:41 by Claudia Navarrete) Household Members: None Housing: Apartment Do you presently have visiting nurse or other home services: No Alcohol intake: former Patient Tobacco Use Status: Former Tobacco user Tobacco use type: Cigarette Cigarette Packs Per Day: 0 Cigarettes Per Day: 0 e-Cigarette/Vaping Use: Never Used Second Hand Smoke Exposure: Yes service: No Current occupational status: disabled Cognitive needs: No Hearing needs: No Vision needs: No Review of Systems Const Denies weakness ENT Denies dizziness Card Denies chest pain, Denies chest pain with activity, Denies syncope, Denies rapid heart rate, Denies pedal edema, Denies edema, Denies leg edema, Denies lightheadedness, Denies palpitations, Denies dyspnea, Denies dyspnea on exertion and Denies orthopnea Resp Denies cough, Denies dyspnea and Denies dyspnea on exertion GI Denies hematochezia and Denies change in stool character Musc Denies abnormal gait, Denies muscle cramps, Denies muscle weakness, Denies numbness, Denies radiating pain into limb and Denies tingling Neuro Denies abnormal gait, Denies dizziness, Denies syncope, Denies numbness, Denies tingling and Denies weakness Endo Denies palpitations Physical Exam Vital Signs: Last Vital Signs Pulse 68 04/17/23 13:29 BP 110/60 04/17/23 13:29 BMI result Body Mass Index 22.4 Const General: healthy appearing and no acute distress Orientation/consciousness: patient oriented x3 HEENT Head: Yes normal to inspection Eyes General: appearance normal, both eyes and all related structures Neck Neck: Yes normal visual inspection Chest Chest palpation & inspection: normal inspection of the chest Resp Effort & Inspection: normal respiratory effort Auscultation: clear to auscultation bilaterally Cardio Jugular venous distension: no JVD Palpation: normal PMI Rate: regular rate Rhythm: regular rhythm Heart sounds: S1 normal heart sound present, S2 normal heart sound present, no click, no gallops, no murmurs and no rubs GI Inspection: Yes normal to inspection Palpation (GI): Soft to palpation Skin General skin exam: no rashes or lesions noted Neuro General: patient oriented x3 Extrem Other: Right radial artery healing appropriately. No redness, tenderness, swelling noted. General: Yes normal to inspection Psych Appearance: grossly normal Results Reviewed Results Reviewed: Cardiac Catheterization LMCA: minimal luminal irregularities LAD:minimal luminal irregularities LCx: minimal luminal irregularities RCA: minimal luminal irregularities Echocardiogram: LV normal in size and wall thickness. LVEF 55-60% No definite wall motion abnormalities. Normal diastolic function. Assessment & Plan Assessment & Plan (1) NSTEMI (non-ST elevated myocardial infarction): Code(s): I21.4 - Non-ST elevation (NSTEMI) myocardial infarction (2) S/P cardiac cath: Comment: 03/21/23 at [facility] LMCA: minimal luminal irregularities LAD: minimal luminal irregularities LCx: minimal luminal irregularities RCA: minimal luminal irregularities Code(s): Z98.890 - Other specified postprocedural states (3) Hypercholesterolemia: Code(s): E78.00 - Pure hypercholesterolemia, unspecified (4) Smoker: Code(s): F17.200 - Nicotine dependence, unspecified, uncomplicated Plan Last LDL 03/15/23 122. Currently on Liptior 80mg. Will repeat lab work in 3 months. He recently quit smoking after [facility] discharge. Continue complete cessation. Continue heart healthy diet. Cardiac catheterization showed minimal irregularities,elevated troponins on admission and echocardiogram before discharge showed no wall motion abnormalities. chest pain thought to be vasospasm of the coronary arteries. Will proceed with cardiac rehab. Continue amlodipine 2.5mg, lipitor 80mg, plavix 75mg. Orders: Orders Cardiac Rehab Today I21.4 - Non-ST elevation (NSTEMI) myocardial infarction Lipid Panel Today E78.00 - Pure hypercholesterolemia, unspecified Basic Metabolic Panel Today E78.00 - Pure hypercholesterolemia, unspecified Coding Level of Care Code Est Pt Level 4 (73615) Diagnoses NSTEMI (non-ST elevated myocardial infarction) I21.4 S/P cardiac cath Z98.890 Hypercholesterolemia E78.00 Smoker F17.200
== END 2023-04-17 14:09 | disposition home or self-care (01) ==
PROVIDERS: PCP Internal Medicine; Visit Provider Nurse Practitioner
DX: I21.4 Non-ST elevation (NSTEMI) myocardial infarction (principal); Z98.890 Other specified postprocedural states; E78.00 Pure hypercholesterolemia, unspecified; F17.200 Nicotine dependence, unspecified, uncomplicated
CPT/HCPCS: 99214

== ENCOUNTER → 2023-04-17 12:52 | Outpatient (BNVA) | payer OTHER, SELFPAY | PROVIDERS: PCP Internal Medicine; Visit Provider Nurse Practitioner | DX: I21.4 Non-ST elevation (NSTEMI) myocardial infarction (principal); E78.00 Pure hypercholesterolemia, unspecified; Z87.891 Personal history of nicotine dependence; Z98.890 Other specified postprocedural states | CPT/HCPCS: 99212 ==

== ENCOUNTER → 2023-05-22 15:14 | Outpatient (AMB) | payer OTHER, SELFPAY ==
[2023-05-22 15:40] VITALS: BP 122/74; PULSE 66; TEMP 36.6; O2SAT 97; BMI 22.3
--- NOTE | 2023-05-22 15:40 | MHC.OFFWIV ---
Intake Vital Signs 05/22/23 15:40 Height 5 ft 9 in Weight 151 lb BMI 22.3 BP 122/74 Blood Pressure Location Lt brachial Position Sitting Pulse 66 Pulse Source Pulse Oximeter Temp 97.9 F Temp Source Oral Pulse Oximetry (%) 97 Oxygen Delivery Method Room Air Intake Visit Reasons: EP RT groin pain (lobby) Intake Note: pt is here for c/o groin pain Patient Tobacco Use Status: Former Tobacco user Allergies tomato [Tomato] Allergy (Severe, Verified 05/22/23 16:10) RASH mushroom Allergy (Verified 05/22/23 16:10) Anaphylaxis shrimp Allergy (Verified 05/22/23 16:10) Anaphylaxis Medication List - Last Reconciled 05/22/23 by Dontrell Dowling MD amlodipine 2.5 mg PO DAILY aspirin 81 mg PO DAILY atorvastatin 80 mg (2 x 40 mg) PO BEDTIME blood pressure monitor (Blood Pressure Kit) As directed bupropion HCl 150 mg PO QAM buspirone 10 mg PO BID clopidogrel 75 mg PO DAILY cyclobenzaprine 5 mg PO TID PRN doxepin 50 mg PO BEDTIME fluticasone furoate-vilanterol 200-25 mcg/dose (Breo Ellipta) 1 inh inhalation DAILY gabapentin 600 mg PO TID 30 days [LUMBAR BACK BRACE Use as directed for increasing low back pain] umeclidinium 62.5 mcg/actuation (Incruse Ellipta) 1 inh inhalation BEDTIME 30 days Ventolin HFA 90 mcg/actuation (albuterol sulfate) 2 puffs inhalation Q6H PRN 30 days NS Do you need a note to return to daycare/school/sports/work: No HPI EP RT groin pain (lobby) HPI Details 57-year-old male presents to the office for a sick visit. Patient is reporting groin pain for the past 2 days. He noticed the pain while stepping into his car. Pain is on the right side. No difficulty with urination. No symptoms of increased frequency. PFSH Medical History (Updated 04/18/23 @ 07:53 by Melissa Hendrickson NP) Coronary vasospasm GERD without esophagitis Right foot drop Smoker Anxiety Lumbar degenerative disc disease Compression fracture of lumbosacral spine COPD (chronic obstructive pulmonary disease) Surgical History (Updated 04/17/23 @ 13:43 by Melissa Hendrickson NP) S/P cardiac cath H/O cardiac catheterization History of ankle surgery Previous back surgery Family History Father Lung cancer Mother HTN (hypertension) Diabetes Social History (Updated 04/17/23 @ 13:41 by Claudia Navarrete) Household Members: None Housing: Apartment Do you presently have visiting nurse or other home services: No Alcohol intake: former Patient Tobacco Use Status: Former Tobacco user Tobacco use type: Cigarette Cigarette Packs Per Day: 0 Cigarettes Per Day: 0 e-Cigarette/Vaping Use: Never Used Second Hand Smoke Exposure: Yes service: No Current occupational status: disabled Cognitive needs: No Hearing needs: No Vision needs: No Physical Exam Vital Signs: Last Vital Signs Temp 97.9 F 05/22/23 15:40 Pulse 66 05/22/23 15:40 BP 122/74 05/22/23 15:40 Pulse Ox 97 05/22/23 15:40 Oxygen Delivery Method Room Air 05/22/23 15:40 BMI result Body Mass Index 22.3 Other: Abdomen: Bowel sounds heard all over. Discomfort in the right lower quadrant. Right hip: Internal and external rotation elicited no pain. Testicular exam was normal. Results AMB Urinalysis, Automated UA Leukoctes 0 Dottie/uL Last Edit by Alfredo Reeves CMA on 05/22/23 15:50 UA Nitrite Negative Last Edit by Alfredo Reeves CMA on 05/22/23 15:50 UA Urobilinogen 0.2 mg/dL Last Edit by Alfredo Reeves CMA on 05/22/23 15:50 UA Protein 0 mg/dL Last Edit by Alfredo Reeves CMA on 05/22/23 15:50 UA pH 6.0 Last Edit by Alfredo Reeves CMA on 05/22/23 15:50 UA Blood 0 Oliverio/uL Last Edit by Alfredo Reeves CMA on 05/22/23 15:50 UA Specific [place] 1.010 Last Edit by Alfredo Reeves CMA on 05/22/23 15:50 UA Ketone Negative Last Edit by Alfredo Reeves CMA on 05/22/23 15:50 UA Bilirubin 0 mg/dL Last Edit by Alfredo Reeves CMA on 05/22/23 15:50 UA Glucose 0 mg/dL Last Edit by Alfredo Reeves CMA on 05/22/23 15:50 Results Reviewed Results Reviewed: Laboratory Last Values Urine pH (Auto) 6.0 05/22/23 15:50 Specific [place] (Auto) 1.010 05/22/23 15:50 Urine Protein (Auto) 0 mg/dL 05/22/23 15:50 Glucose (UA)(Auto) 0 mg/dL 05/22/23 15:50 Urine Ketones (Auto) Negative 05/22/23 15:50 Urine Blood (Auto) 0 Oliverio/uL 05/22/23 15:50 Urine Nitrite (Auto) Negative 05/22/23 15:50 Urine Bilirubin (Auto) 0 mg/dL 05/22/23 15:50 Urine Urobilinogen (Auto) 0.2 mg/dL 05/22/23 15:50 Leukocyte Esterase (Auto) 0 Dottie/uL 05/22/23 15:50 Assessment & Plan Assessment & Plan (1) Right groin pain: Code(s): R10.31 - Right lower quadrant pain Plan: Urinalysis was unremarkable. Most likely muscular etiology. Patient was advised to continue the cyclobenzaprine he is taking. Should symptoms worsen, I suggested that he follow-up here. Orders: Orders AMB Urinalysis Automated Today Z13.9 - Encounter for screening, unspecified Coding Level of Care Code Est Pt Level 3 (70201) Diagnoses Right groin pain R10.31
== END ==
PROVIDERS: PCP Internal Medicine; Visit Provider Internal Medicine
DX: R10.31 Right lower quadrant pain (principal)
CPT/HCPCS: 81003; 99213

== ENCOUNTER 2023-09-03 13:18 | Outpatient (AMB) | payer OTHER, SELFPAY ==
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
[2023-09-03 13:25] VITALS: BP 128/68; PULSE 86; O2SAT 96; BMI 21.9
== END 2023-09-03 14:16 | disposition home or self-care (01) ==
PROVIDERS: PCP Internal Medicine; Visit Provider Internal Medicine
DX: J44.9 Chronic obstructive pulmonary disease, unspecified (principal); E78.00 Pure hypercholesterolemia, unspecified; I20.1 Angina pectoris with documented spasm; R51.9 Headache, unspecified; M51.36 Other intervertebral disc degeneration, lumbar region; M21.371 Foot drop, right foot; K21.9 Gastro-esophageal reflux disease without esophagitis; F41.9 Anxiety disorder, unspecified; F17.200 Nicotine dependence, unspecified, uncomplicated
CPT/HCPCS: 99214

== ENCOUNTER 2023-12-19 13:45 | Outpatient (AMB) | payer OTHER, SELFPAY ==
[2023-12-19 13:46] VITALS: BP 118/70; PULSE 91; O2SAT 96; BMI 22.2
--- NOTE | 2023-12-19 13:46 | A.OFFPC_ITS ---
Vital Signs 12/19/23 13:46 Height 5 ft 9 in Weight 150 lb 6 oz BMI 22.2 BP 118/70 Blood Pressure Location Lt brachial Position Sitting Pulse 91 Pulse Source Pulse Oximeter Pulse Oximetry (%) 96 Oxygen Delivery Method Room Air Intake Visit Reasons: Annual Exam Global Commodity Manager Required: No Accompanied by: Self / Same As Patient Allergies tomato [Tomato] Allergy (Severe, Verified 12/23/23 19:13) RASH umeclidinium [From Incruse Ellipta] Allergy (Intermediate, Verified 12/23/23 19:13) Headache mushroom Allergy (Verified 12/23/23 19:13) Anaphylaxis shrimp Allergy (Verified 12/23/23 19:13) Anaphylaxis Medication List - Last Reconciled 12/23/23 by Jack Santo MD amlodipine 2.5 mg PO DAILY aspirin 81 mg PO DAILY atorvastatin 80 mg (2 x 40 mg) PO BEDTIME blood pressure monitor (Blood Pressure Kit) As directed bupropion HCl XL 150 mg PO QAM buspirone 10 mg PO BID 30 days odysinurdo-weshjrenpbrmk-mmht 50-300-40 mg (Fioricet) 1 cap PO Q8H PRN clopidogrel 75 mg PO DAILY cyclobenzaprine 5 mg PO TID PRN doxepin 50 mg PO BEDTIME fluticasone furoate-vilanterol 200-25 mcg/dose (Breo Ellipta) 1 inh inhalation DAILY gabapentin 600 mg PO TID 30 days [LUMBAR BACK BRACE Use as directed for increasing low back pain] Ventolin HFA 90 mcg/actuation (albuterol sulfate) 2 puffs inhalation Q6H PRN 30 days NS Tobacco use date assessed: 12/19/23 Dental Screening Dental Screen Date: 12/19/23 Did you have a dental visit in the last 12 months?: Yes Did you have a dental problem in the last 6 months where you did not have access to dental care?: No Was dental information given to patient?: Patient has dentist HPI Annual Exam HPI Details Patient comes in today for his annual physical examination States that he feels okay although his right foot has been bothering him a lot (pain) lately and he would like to see a foot doctor for this He denies any recent injury or trauma to his foot although he does have a chronic right foot issue (foot drop) States that he feels okay otherwise He denies any increased headaches or dizziness lately Denies any chest pains, no increased SOB No nausea/vomiting, no abdominal pain No change in bowel habits noted He denies any acute urinary symptoms He continues to struggle with smoking and has failed on the nicotine patches He is unable to use Nicotine gums as he is edentulous He's had Cologuard testing ordered a couple of times over the past 2 years but he never did proceed with the testing and he does not wish to have this reordered at this time - states that he does not want to deal with this right now He has also refused to get a colonoscopy done in the past and states that he has not changed his mind about this He was not able to get his previously ordered labs done yet - states that he will try to get these done sometime in the next week or so He would also like to get his flu shot today [facility] Medical History (Updated 12/23/23 @ 19:56 by Jack Santo MD) Colonoscopy refused Coronary vasospasm GERD without esophagitis Right foot drop Smoker Anxiety Lumbar degenerative disc disease Compression fracture of lumbosacral spine COPD (chronic obstructive pulmonary disease) Surgical History S/P cardiac cath H/O cardiac catheterization History of ankle surgery Previous back surgery Family History Father Lung cancer Mother HTN (hypertension) Diabetes Social History Household Members: None Housing: Apartment Do you presently have visiting nurse or other home services: No Alcohol intake: former Patient Tobacco Use Status: Former Tobacco user Tobacco use type: Cigarette Cigarette Packs Per Day: 0 Cigarettes Per Day: 0 e-Cigarette/Vaping Use: Never Used Second Hand Smoke Exposure: Yes service: No Current occupational status: disabled Cognitive needs: No Hearing needs: No Vision needs: No Questionnaire PHQ-9 Over the last 2 weeks, how often have you been bothered by any of the following problems? 1. Little interest or pleasure in doing things: not at all 2. Feeling down, depressed, or hopeless: not at all 3. Trouble falling or staying asleep, or sleeping too much: not at all 4. Feeling tired or having little energy: not at all 5. Poor appetite or overeating: not at all 6. Feeling bad about yourself - or that you are a failure or have let yourself or your family down: not at all 7. Trouble concentrating on things, such as reading the newspaper or watching television: not at all 8. Moving or speaking so slowly that other people could have noticed. Or the opposite - being so fidgety or restless that you have been moving around a lot more than usual: not at all 9. Thoughts that you would be better off or of hurting yourself in some way: not at all Total score: 0 Depression Screening Interpretation: Negative Depression Screening Done: Yes 21159 - PHQ-9 Billing: Yes Source: Developed by Drs. Eleuterio Henriquez, Ruthy Mares, Santi Madison and colleagues, with an educational robert from [employer]. Thrive Questionnaire Date Thrive assessed: 12/19/23 I am a: Patient What is your living situation today?: I have a steady place to live Within the past 12 months, did the food you bought not last and you didn't have the money to get more?: Never true Within the past 12 months, did you worry whether your food would run out before you got money to buy more?: Never true Do you have trouble paying for medicines?: No Do you have trouble getting transportation to medical appointments?: No Do you have trouble paying your heating and electricity bill?: No Do you have trouble taking care of your child, family member or friend?: No Do you have trouble with day-to-day activities such as bathing, preparing meals, shopping, managing finances, etc.?: No Are you currently unemployed and looking for a job?: No Are you interested in more education?: No Please select the resources that you would like help with: None Currently or been in a relationship where the following occur: No concerns reported THRIVE Score: 0 AUDIT C Alcohol Use Questionnaire (AUDIT-C) 1. How often do you have a drink containing alcohol?: Never 3. How often do you have six or more drinks on one occasion?: Never Total Score: 0 Score Reviewed/Action Taken: Yes KATIANA-7 AMB Questionnaire KATIANA-7 Date KATIANA - 7 assessed: 12/19/23 Feeling nervous, anxious, or on edge: 0 = Not at all Not being able to stop or control worryin = Not at all Worrying too much about different things: 0 = Not at all Trouble relaxin = Not at all Being so restless that it is hard to sit still: 0 = Not at all Becoming easily annoyed or irritable: 0 = Not at all Feeling afraid as if something awful might happen: 0 = Not at all Total KATIANA-7 score (0-4 normal; 5-9 mild; 10-14 moderate; 15-21 severe): 0 Source: Developed by Drs. Eleuterio Henriquez, Ruthy Mares, Santi Madison and colleagues, with an educational robert from [employer]. Review of Systems Const Denies chills, Denies fatigue, Denies fever(s), Denies headache(s), Denies malaise and Denies weakness Eyes Denies blurry vision, Denies change in vision, Denies irritation and Denies itchy eyes ENT Denies dysphagia, Denies dizziness, Denies otalgia, Denies headache(s), Denies nasal congestion, Denies neck pain, Denies odynophagia and Denies sore throat Card Denies chest pain, Denies rapid heart rate, Denies irregular heart rhythm, Denies palpitations and Reports dyspnea on exertion (mild) Resp Denies chest congestion, Denies cough, Reports dyspnea on exertion (mild) and Denies wheezing GI Denies abdominal pain, Denies bloating, Denies constipation, Denies dysphagia, Denies heartburn, Denies diarrhea, Denies nausea, Denies odynophagia and Denies vomiting Denies hematuria, Denies difficulty urinating, Denies dysuria, Denies urinary frequency and Denies urinary urgency Musc Details: (+) right foot pain Reports back pain (over the lower back (chronic) - states that this has been manageable mostly), Denies arthralgias, Denies joint swelling, Denies muscle weakness and Denies neck pain Skin/Breast Denies change in pigmentation, Denies lesions, Denies rash and Denies unusual bruising Neuro Denies dizziness, Denies headache(s), Denies paresthesias and Denies weakness Endo Denies fatigue and Denies palpitations Aller/Immun Denies itchy eyes and Denies wheezing Physical exam (Primary Care) Vital Signs: Last Vital Signs Pulse 91 12/19/23 13:46 BP 118/70 12/19/23 13:46 Pulse Ox 96 12/19/23 13:46 Oxygen Delivery Method Room Air 12/19/23 13:46 BMI result Body Mass Index 22.2 Tobacco/Smoking Status: Tobacco use Status Tobacco use date assessed 12/19/23 12/19/23 13:53 Patient Tobacco Use Status Former Tobacco user 12/19/23 13:53 Tobacco use type Cigarette 12/19/23 13:53 e-Cigarette/Vaping Use Never Used 12/19/23 13:53 PHQ-9: PHQ-9 Score PHQ-9: Total score 0 12/19/23 14:51 Depression Screening Interpretation: Negative Thrive Assessment: Date of Thrive Assessment Date Thrive assessed 12/19/23 12/19/23 13:53 Currently or been in a relationship where the following occur: No concerns reported Const General: no acute distress, alert and awake Orientation/consciousness: patient oriented x3 HENMT Head: Yes normocephalic and Yes atraumatic Ears: external ears normal, TM's normal bilaterally and EAC's normal General nose exam: No nasal discharge present Face and sinus: Yes normal facial exam and Yes sinuses nontender Teeth and gingiva: dentition normal Throat: Yes posterior oropharynx normal and Yes tonsils normal (no TP congestion) Eyes Eyelids: Yes eyelids normal Conjunctivae: conjunctivae normal Pupils: Equal, round and reactive pupils present EOM: EOMs intact bilaterally Neck Neck: Yes no lymphadenopathy and Yes supple Thyroid: Thyroid normal Resp Auscultation: no rales, rhonchi (diminished breath sounds with scattered rhonchi bilaterally), no wheezes and diminished lung sounds Cardio Rate: regular rate Rhythm: regular rhythm Heart sounds: no murmurs GI Palpation (GI): Soft to palpation, nontender and No hepatosplenomegaly present Auscultation: normal bowel sounds General: Yes no CVA tenderness Back/Spine/Pelvis Back: no CVA tenderness Thoracic/Lumbar Spine: lumbar spinal tenderness Skin Lesions: no lesions Rashes: no rashes Neuro General: patient oriented x3, moves all extremities, no focal motor deficits and CN's II-XI intact bilaterally Cranial nerves: Yes Equal, round and reactive pupils present Cognition (Neuro): normal cognition Gait exam (Neuro): Normal gait present Extrem General: Yes no clubbing, cyanosis or edema Office Procedures Flu Questionnaire Does the patient have a severe egg allergy?: No Does the patient have severe life threatening allergies?: No Does the patient have a fever or illness today?: No Has the patient ever had Guillain-[place] Syndrome?: No Has the patient ever had any past reaction to a flu shot?: No Immunizations Fluarix Triv [id number] (PF) 45 mcg (15 mcg x 3)/0.5 mL IM syringe Performing Provider: Jack Santo MD [facility] Administered by: CECILIA Aguero on 12/19/23 14:01 Dose Route Admin Location Dispensed Lot Number Expiration Date [facility] 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 0.5 mL IM Right Deltoid 0.5 mL [id number] 08/18/24 [id number] [employer] VIS Given Date VIS Provided VIS Publication Date 12/19/23 Single Vaccine 20 Eligibility Eligibility Date Funding Source Not [facility] Eligible 12/19/23 Private Coding Level of Care Code Est Pt Prev Care 40-64y(58103) Diagnoses Annual physical exam Z00.00 Chronic obstructive pulmonary disease, unspecified COPD type J44.9 COPD type: unspecified COPD Hypercholesterolemia E78.00 Coronary vasospasm I20.1 Degeneration of intervertebral disc of lumbar region with discogenic back pain and lower extremity pain M51.362 Disc-related pain type: discogenic back pain and lower extremity pain Right foot drop M21.371 Pain of right foot M79.671 GERD without esophagitis K21.9 Anxiety F41.9 Smoker F17.200 Colonoscopy refused Z53.20 Assessment & Plan Assessment & Plan (1) Annual physical exam: Code(s): Z00.00 - Encounter for general adult medical examination without abnormal findings Category: Medical Plan: Patient is advised to try and get his previously ordered labs done AMY He has refused to go for a screening colonoscopy in the past and continues to decline referral to GI for this He's had Cologuard testing ordered a couple of times over the past 2 years but he never did go through with the testing and he does not wish to have this reordered at present - states that he does not want to deal with this right now (2) COPD (chronic obstructive pulmonary disease): Code(s): J44.9 - Chronic obstructive pulmonary disease, unspecified Category: Medical Qualifiers: COPD type: unspecified COPD Qualified Code(s): J44.9 - Chronic obstructive pulmonary disease, unspecified Plan: Continue Breo Ellipta 200-25 mcg 1 inhalation QD (Rx refilled) and Albuterol HFA 2 inhalations every 6 hours as needed Have offered again to refer him to pulmonary for further management but he continues to decline referral - does not feel that he needs to see a specialist at this time Have also reminded / emphasized to him that he really needs to quit smoking considering his lung condition - he continues to struggle with this (3) Hypercholesterolemia: Code(s): E78.00 - Pure hypercholesterolemia, unspecified Category: Medical Plan: He has not yet been able to get his previously ordered labs done and is encouraged to do so AMY Reinforced low cholesterol diet His cholesterol levels were at or near goal when they were most recently checked in February 2023 - TC 175, TG 88, HDL 36 and LDL 122 but he has since been started on Atorvastatin 80 mg QD after his coronary vasospasm in late February 2023 Will recheck his labs and fasting lipids again in 4 months for follow up (4) Coronary vasospasm: Comment: [facility] [place]23 Code(s): I20.1 - Angina pectoris with documented spasm Category: Medical Plan: He presented to the ER back in February 2023 for chest pain and work ups revealed (+) elevated troponin level and he was thought to be in NSTEMI Echocardiogram done revealed normal LV ejection fraction of 60 to 65% but (+) regional wall motion abnormality apparent in RCA territory Patient was then transferred to [facility] [place] for cardiac catheterization His cardiac catherization showed no significant CAD; repeat echocardiogram came out normal and his chest pains were then thought to be possibly due to coronary vasospasm Patient states that he's had no recurrence of chest pains since Continue Aspirin 81 mg QD, Clopidogrel 75 mg QD, Amlodpine 2.5 mg QD and Atorvastatin 80 mg QD Follow up with cardiology as scheduled (5) Lumbar degenerative disc disease: Comment: Most recent lumbar spine CT done on 02/09/2021 revealed (+) multilevel facet arthritis and degenerative disc changes, with a complete compression fracture of L5 -- patient sustained a crush injury to his lumbar spine in 1982 Code(s): M51.36 - Other intervertebral disc degeneration, lumbar region Category: Medical Qualifiers: Disc-related pain type: discogenic back pain and lower extremity pain Qualified Code(s): M51.362 - Other intervertebral disc degeneration, lumbar region with discogenic back pain and lower extremity pain Plan: Lumbar spine MRI last done on 02/08/2021 revealed severe compression fracture at L5 with fragmentation and displacement of the fragments resulting in significant distortion at this level. There is also severe narrowing of the right neural foramen with compression of the exiting right L4 nerve root, likely resulting in his right foot drop He was [place] [facility] [place] [facility] [place] and management at his last visit, especially with his increasing low back pain lately, but was advised that he will need an updated MRI before neurosurgery will see him Reinforced activity and weight-lifting restrictions Continue Cyclobenzaprine 5 mg TID and Gabapentin 600 mg TID (6) Right foot drop: Comment: chronic Code(s): M21.371 - Foot drop, right foot Category: Medical Plan: No intervention is indicated at this time He was referred to neurosurgery in September 2022 but was advised that he will need an updated MRI done first before neurosurgery can see him (7) Pain of right foot: Code(s): M79.671 - Pain in right foot Category: Medical Plan: Per request, will refer him to podiatry for further evaluation and management (8) GERD without esophagitis: Code(s): K21.9 - Gastro-esophageal reflux disease without esophagitis Category: Medical Plan: Dietary restrictions reinforced Patient used to take Omeprazole 20 mg QD but states that he has not had to take Rx in a while now and has not had any flare up of his symptoms lately (9) Anxiety: Code(s): F41.9 - Anxiety disorder, unspecified Category: Medical Plan: Continue Bupropion SR 150 mg Q AM, Buspirone 10 mg BID and Doxepin 50 mg Q HS (10) Smoker: Code(s): F17.200 - Nicotine dependence, unspecified, uncomplicated Category: Social Hx Plan: He is counseled again to continue attempts at smoking cessation He has so far failed Nicotine patches and is unable to use Nicotine gums as he is edentulous (11) Colonoscopy refused: Code(s): Z53.20 - Procedure and treatment not carried out because of patient's decision for unspecified reasons Category: Medical Plan: He has refused to go for a screening colonoscopy in the past and continues to decline referral to GI for this He's had Cologuard testing ordered a couple of times over the past 2 years but he never did go through with the testing and he does not wish to have this reordered at present - states that he does not want to deal with this right now Plan As requested, flu vaccine given to the patient today Follow up in 4 months Orders: Orders Influenza [id number] Immunization 12/19/23 Z23 - Encounter for immunization Hemoglobin A1c 12/19/23 R73.9 - Hyperglycemia, unspecified Comprehensive Mcdonald. Panel Fast 4 Months E78.00 - Pure hypercholesterolemia, unspecified Vitamin B12 and Folate 12/19/23 E53.8 - Deficiency of other specified B group vitamins Prostate Specific Antigen Scr 12/19/23 Z00.00 - Encounter for general adult medical examination without abnormal findings Lipid Panel 4 Months E78.00 - Pure hypercholesterolemia, unspecified Complete Blood Count Auto Diff 4 Months D64.9 - Anemia, unspecified Referrals Podiatry Referral M79.671 - Pain in right foot
== END 2023-12-19 14:46 | disposition home or self-care (01) ==
LOC: HO.HMCH 13:45
PROVIDERS: PCP Internal Medicine; Visit Provider Internal Medicine
DX: Z00.00 Encounter for general adult medical examination without abnormal findings (principal); J44.9 Chronic obstructive pulmonary disease, unspecified; E78.00 Pure hypercholesterolemia, unspecified; I20.1 Angina pectoris with documented spasm; M51.362 Other intervertebral disc degeneration, lumbar region with discogenic back pain and lower extremity pain; M21.371 Foot drop, right foot; M79.671 Pain in right foot; K21.9 Gastro-esophageal reflux disease without esophagitis; F41.9 Anxiety disorder, unspecified; F17.200 Nicotine dependence, unspecified, uncomplicated; Z53.20 Procedure and treatment not carried out because of patient's decision for unspecified reasons

== ENCOUNTER → 2023-12-19 13:45 | Outpatient (BNVA) | payer OTHER, SELFPAY | PROVIDERS: PCP Internal Medicine; Visit Provider Internal Medicine | DX: Z00.01 Encounter for general adult medical examination with abnormal findings (principal); Z23 Encounter for immunization; J44.9 Chronic obstructive pulmonary disease, unspecified; E78.00 Pure hypercholesterolemia, unspecified; I20.1 Angina pectoris with documented spasm; M51.362 Other intervertebral disc degeneration, lumbar region with discogenic back pain and lower extremity pain; M21.371 Foot drop, right foot; M79.671 Pain in right foot; K21.9 Gastro-esophageal reflux disease without esophagitis; F41.9 Anxiety disorder, unspecified; F17.200 Nicotine dependence, unspecified, uncomplicated; Z71.6 Tobacco abuse counseling | CPT/HCPCS: 90471; 90656; 96127; 99396 ==

== ENCOUNTER 2024-02-05 13:23 | Outpatient (AMB) | payer OTHER, SELFPAY ==
[2024-02-05 13:24] VITALS: BP 124/84; PULSE 90; O2SAT 96; BMI 27.8
--- NOTE | 2024-02-05 13:24 | A.OFFPC_ITS ---
Vital Signs 02/05/24 13:24 Height 5 ft 9 in Weight 188 lb 0.869 oz BMI 27.8 BP 124/84 Blood Pressure Location Lt brachial Position Sitting Pulse 90 Pulse Source Pulse Oximeter Pulse Oximetry (%) 96 Oxygen Delivery Method Room Air Intake Visit Reasons: Med review Skin Care Instructor Required: No Accompanied by: Self / Same As Patient Allergies tomato [Tomato] Allergy (Severe, Verified 02/05/24 14:11) RASH umeclidinium [From Incruse Ellipta] Allergy (Intermediate, Verified 02/05/24 14:11) Headache mushroom Allergy (Verified 02/05/24 14:11) Anaphylaxis shrimp Allergy (Verified 02/05/24 14:11) Anaphylaxis Medication List - Last Reconciled 02/05/24 by Jack Santo MD amlodipine 2.5 mg PO DAILY aspirin 81 mg PO DAILY atorvastatin 80 mg (2 x 40 mg) PO BEDTIME blood pressure monitor (Blood Pressure Kit) As directed bupropion HCl XL 150 mg PO QAM buspirone 10 mg PO BID 30 days pxadbodklx-wpgoeuxjouezz-qxob 50-300-40 mg (Fioricet) 1 cap PO Q8H PRN clopidogrel 75 mg PO DAILY cyclobenzaprine 5 mg PO TID PRN doxepin 50 mg PO BEDTIME fluticasone furoate-vilanterol 200-25 mcg/dose (Breo Ellipta) 1 inh inhalation DAILY gabapentin 600 mg PO TID 30 days [LUMBAR BACK BRACE Use as directed for increasing low back pain] Ventolin HFA 90 mcg/actuation (albuterol sulfate) 2 puffs inhalation Q6H PRN 30 days NS Tobacco use date assessed: 02/05/24 Dental Screening Dental Screen Date: 02/05/24 Did you have a dental visit in the last 12 months?: Yes Did you have a dental problem in the last 6 months where you did not have access to dental care?: No Was dental information given to patient?: Patient has dentist HPI Med review HPI Details Patient comes in today for his follow up visit States that he has been experiencing increased pain over his lower back lately He has gained a lot of weight over the past few months (about 38 pounds) since he quit smoking - admits that he has been doing a lot of late night eating and states that he has not been doing a lot in terms of physical activity due to his increasing low back pain States that his back pain has gotten worse lately to a point where he can now barely stand for more than a couple minutes after which his back pain will start to act up States that he has applied for [employer] services for his activities of daily living and is currently still waiting for approval from his insurance He was not able to get his follow-up labs done yet and states that he will try to get these done as soon as possible He denies any headaches or dizziness Denies any chest pains but notes (+) shortness of breath with exertion lately due to his significant weight gain No nausea/vomiting, no abdominal pain No change in bowel habits noted [facility] Medical History (Updated 02/10/24 @ 18:43 by Jack Santo MD) Overweight (BMI 25.0-29.9) Colonoscopy refused Coronary vasospasm GERD without esophagitis Right foot drop Smoker Anxiety Lumbar degenerative disc disease Compression fracture of lumbosacral spine COPD (chronic obstructive pulmonary disease) Surgical History S/P cardiac cath H/O cardiac catheterization History of ankle surgery Previous back surgery Family History Father Lung cancer Mother HTN (hypertension) Diabetes Social History Household Members: None Housing: Apartment Do you presently have visiting nurse or other home services: No Alcohol intake: former Patient Tobacco Use Status: Former Tobacco user Tobacco use type: Cigarette Cigarette Packs Per Day: 0 Cigarettes Per Day: 0 e-Cigarette/Vaping Use: Never Used Second Hand Smoke Exposure: Yes service: No Current occupational status: disabled Cognitive needs: No Hearing needs: No Vision needs: No Questionnaire PHQ-9 Over the last 2 weeks, how often have you been bothered by any of the following problems? 1. Little interest or pleasure in doing things: not at all 2. Feeling down, depressed, or hopeless: not at all 3. Trouble falling or staying asleep, or sleeping too much: not at all 4. Feeling tired or having little energy: not at all 5. Poor appetite or overeating: not at all 6. Feeling bad about yourself - or that you are a failure or have let yourself or your family down: not at all 7. Trouble concentrating on things, such as reading the newspaper or watching television: not at all 8. Moving or speaking so slowly that other people could have noticed. Or the opposite - being so fidgety or restless that you have been moving around a lot more than usual: not at all 9. Thoughts that you would be better off or of hurting yourself in some way: not at all Total score: 0 Depression Screening Interpretation: Negative Depression Screening Done: Yes [id number] - PHQ-9 Billing: Yes Source: Developed by Drs. Eleuterio Henriquez, Ruthy Mares, Santi Madison and colleagues, with an educational robert from [employer]. Thrive Questionnaire Date Thrive assessed: 02/05/24 I am a: Patient What is your living situation today?: I have a steady place to live Within the past 12 months, did the food you bought not last and you didn't have the money to get more?: Never true Within the past 12 months, did you worry whether your food would run out before you got money to buy more?: Never true Do you have trouble paying for medicines?: No Do you have trouble getting transportation to medical appointments?: No Do you have trouble paying your heating and electricity bill?: No Do you have trouble taking care of your child, family member or friend?: No Do you have trouble with day-to-day activities such as bathing, preparing meals, shopping, managing finances, etc.?: No Are you currently unemployed and looking for a job?: No Are you interested in more education?: No Please select the resources that you would like help with: None Currently or been in a relationship where the following occur: No concerns reported THRIVE Score: 0 AUDIT C Alcohol Use Questionnaire (AUDIT-C) 1. How often do you have a drink containing alcohol?: Never 3. How often do you have six or more drinks on one occasion?: Never Total Score: 0 Score Reviewed/Action Taken: Yes KATIANA-7 AMB Questionnaire KATIANA-7 Date KATIANA - 7 assessed: 02/05/24 Feeling nervous, anxious, or on edge: 0 = Not at all Not being able to stop or control worryin = Not at all Worrying too much about different things: 0 = Not at all Trouble relaxin = Not at all Being so restless that it is hard to sit still: 0 = Not at all Becoming easily annoyed or irritable: 0 = Not at all Feeling afraid as if something awful might happen: 0 = Not at all Total KATIANA-7 score (0-4 normal; 5-9 mild; 10-14 moderate; 15-21 severe): 0 Source: Developed by Drs. Eleuterio Henriquez, Ruthy Mares, aSnti Madison and colleagues, with an educational robert from [employer]. Review of Systems Const Denies chills, Reports fatigue, Denies fever(s), Denies headache(s) and Reports weight gain ENT Denies dysphagia, Denies dizziness, Denies otalgia, Denies headache(s), Denies neck pain, Denies odynophagia and Denies sore throat Card Denies chest pain, Denies irregular heart rhythm, Denies palpitations and Reports dyspnea on exertion (mild) Resp Denies chest congestion, Denies cough and Reports dyspnea on exertion (mild) GI Denies abdominal pain, Denies constipation, Denies dysphagia, Denies heartburn, Denies diarrhea, Denies nausea, Denies odynophagia and Denies vomiting Denies difficulty urinating, Denies dysuria and Denies urinary frequency Musc Details: (+) right foot pain Reports back pain (over the lower back (chronic) - increased a lot with his weight gain), Denies arthralgias and Denies neck pain Skin/Breast Denies rash Neuro Denies dizziness, Denies headache(s) and Denies paresthesias Endo Reports fatigue and Denies palpitations Physical exam (Primary Care) Vital Signs: Last Vital Signs Pulse 90 02/05/24 13:24 BP 124/84 02/05/24 13:24 Pulse Ox 96 02/05/24 13:24 Oxygen Delivery Method Room Air 02/05/24 13:24 BMI result Body Mass Index 27.8 Tobacco/Smoking Status: Tobacco use Status Tobacco use date assessed 02/05/24 02/05/24 13:31 Patient Tobacco Use Status Former Tobacco user 02/05/24 13:31 Tobacco use type Cigarette 02/05/24 13:31 e-Cigarette/Vaping Use Never Used 02/05/24 13:31 PHQ-9: PHQ-9 Score PHQ-9: Total score 0 02/05/24 14:24 Depression Screening Interpretation: Negative Thrive Assessment: Date of Thrive Assessment Date Thrive assessed 02/05/24 02/05/24 13:31 Currently or been in a relationship where the following occur: No concerns reported Const General: no acute distress and alert HENMT Throat: Yes posterior oropharynx normal and Yes tonsils normal (no TP congestion ) Neck Neck: Yes no lymphadenopathy and Yes supple Thyroid: Thyroid normal Resp Auscultation: no rales, rhonchi (diminished breath sounds with scattered rhonchi bilaterally), no wheezes and diminished lung sounds Cardio Rate: regular rate Rhythm: regular rhythm Heart sounds: no murmurs GI Palpation (GI): Soft to palpation and nontender Auscultation: normal bowel sounds General: Yes no CVA tenderness Back/Spine/Pelvis Back: no CVA tenderness Thoracic/Lumbar Spine: lumbar spinal tenderness (increased) Skin Rashes: no rashes Extrem General: Yes no clubbing, cyanosis or edema Coding Level of Care Code Est Pt Level 4 (78291) Diagnoses Degeneration of intervertebral disc of lumbar region with discogenic back pain and lower extremity pain M51.362 Disc-related pain type: discogenic back pain and lower extremity pain Chronic obstructive pulmonary disease, unspecified COPD type J44.9 COPD type: unspecified COPD Hypercholesterolemia E78.00 Coronary vasospasm I20.1 GERD without esophagitis K21.9 Anxiety F41.9 Overweight (BMI 25.0-29.9) E66.3 Additional Codes PHQ-9 - 00652 - PHQ-9 Billing: Yes ([id number]) Assessment & Plan Assessment & Plan (1) Lumbar degenerative disc disease: Comment: Lumbar spine CT done on 02/09/2021 revealed (+) multilevel facet arthritis and degenerative disc changes, with a complete compression fracture of L5 -- patient sustained a crush injury to his lumbar spine in 1982 Code(s): M51.36 - Other intervertebral disc degeneration, lumbar region Category: Medical Qualifiers: Disc-related pain type: discogenic back pain and lower extremity pain Qualified Code(s): M51.362 - Other intervertebral disc degeneration, lumbar region with discogenic back pain and lower extremity pain Plan: Lumbar spine MRI done in 2020 revealed (+) severe compression fracture seen at L5 with fragmentation and displacement of the fracture fragments resulting in significant distortion at this level. Severe narrowing of the right-sided neural foramen with compression of the exiting right L4 nerve root. The lumbar spine CT may better characterize the abnormal configuration of the cervical spine at this level He also had a severe narrowing of the left neural foramen with compression of the exiting left L5 nerve root at L5-S1 Lumbar spine CT findings as above Have advised patient that his recent increased low back pain is most likely predominantly due to his significant weight gain recently Will send him for physical therapy evaluation and management for now and if physical therapy does not help at all with his low back pain, we may need to send him for repeat MRI or CT of the lumbar spine for further evaluation Continue Gabapentin 600 mg TID Will start him additionally on Lidocaine 5% patches to apply to painful area on lower back QD PRN (2) COPD (chronic obstructive pulmonary disease): Code(s): J44.9 - Chronic obstructive pulmonary disease, unspecified Category: Medical Qualifiers: COPD type: unspecified COPD Qualified Code(s): J44.9 - Chronic obstructive pulmonary disease, unspecified Plan: Continue Breo Ellipta 200-25 mcg 1 inhalation QD and Albuterol HFA 2 inhalations every 6 hours as needed Have offered again to refer him to pulmonary for further management but he continues to decline referral - does not feel that he needs to see a specialist at this time (3) Hypercholesterolemia: Code(s): E78.00 - Pure hypercholesterolemia, unspecified Category: Medical Plan: He has not yet been able to get his previously ordered labs done and is encouraged to do so AMY Reinforced low cholesterol diet His cholesterol levels were at or near goal when they were most recently checked in February 2023 - TC 175, TG 88, HDL 36 and LDL 122 but he has since been started on Atorvastatin 80 mg QD after his coronary vasospasm in late February 2023 Will recheck his labs and fasting lipids again in 4 months for follow up (4) Coronary vasospasm: Comment: [facility] 02/2023 Code(s): I20.1 - Angina pectoris with documented spasm Category: Medical Plan: He presented to the ER back in February 2023 for chest pain and work ups revealed (+) elevated troponin level and he was thought to be in NSTEMI Echocardiogram done revealed normal LV ejection fraction of 60 to 65% but (+) regional wall motion abnormality apparent in RCA territory Patient was then transferred to [facility] for cardiac catheterization His cardiac catherization showed no significant CAD; repeat echocardiogram came out normal and his chest pains were then thought to be possibly due to coronary vasospasm Patient states that he's had no recurrence of chest pains since Continue Aspirin 81 mg QD, Clopidogrel 75 mg QD, Amlodpine 2.5 mg QD and Atorvastatin 80 mg QD Follow up with cardiology as scheduled (5) GERD without esophagitis: Code(s): K21.9 - Gastro-esophageal reflux disease without esophagitis Category: Medical Plan: Dietary restrictions reinforced Patient used to take Omeprazole 20 mg QD but states that he has not had to take Rx in a while now and has not had any flare up of his symptoms lately (6) Anxiety: Code(s): F41.9 - Anxiety disorder, unspecified Category: Medical Plan: Continue Bupropion SR 150 mg Q AM, Buspirone 10 mg BID and Doxepin 50 mg Q HS (7) Overweight (BMI 25.0-29.9): Code(s): E66.3 - Overweight Category: Medical Plan: Patient has gained a lot of weight (about 38 pounds) since he quit smoking a few months ago and he is now in the overweight category Reinforced diet; exercise is unrealistic given his increasing low back pain lately Have advised him to stop his late night eating and try to avoid eating anything else after dinner until the next morning at breakfast and he can try to look for alternative activities that will preoccupied him and keep him from eating late at night, which is the primary reason he has gained so much weight lately Plan Follow up in 3 months Orders: Orders Lipid Panel 4 Months E78.00 - Pure hypercholesterolemia, unspecified Comprehensive Ray. Panel Fast 4 Months E78.00 - Pure hypercholesterolemia, unspecified TSH reflex Free T4 4 Months E78.00 - Pure hypercholesterolemia, unspecified UA CC w/rflx Micro + Cult 4 Months R30.0 - Dysuria PT Evaluation and Treatment 02/04/24 M54.50 - Low back pain, unspecified, R26.81 - Unsteadiness on feet Complete Blood Count Auto Diff 4 Months D64.9 - Anemia, unspecified Hemoglobin A1c 4 Months R73.01 - Impaired fasting glucose Vitamin D 25-OH Total 4 Months E55.9 - Vitamin D deficiency, unspecified Medications: New lidocaine 5% leave on most painful area for up to 12 hrs 1 patch topical DAILY 30 ea 3RF low back pain
== END 2024-02-05 14:28 | disposition home or self-care (01) ==
PROVIDERS: PCP Internal Medicine; Visit Provider Internal Medicine
DX: M51.362 Other intervertebral disc degeneration, lumbar region with discogenic back pain and lower extremity pain (principal); J44.9 Chronic obstructive pulmonary disease, unspecified; E78.00 Pure hypercholesterolemia, unspecified; I20.1 Angina pectoris with documented spasm; K21.9 Gastro-esophageal reflux disease without esophagitis; F41.9 Anxiety disorder, unspecified; E66.3 Overweight

== ENCOUNTER → 2024-02-05 13:23 | Outpatient (BNVA) | payer OTHER, SELFPAY | PROVIDERS: PCP Internal Medicine; Visit Provider Internal Medicine | DX: M51.362 Other intervertebral disc degeneration, lumbar region with discogenic back pain and lower extremity pain (principal); J44.9 Chronic obstructive pulmonary disease, unspecified; E78.00 Pure hypercholesterolemia, unspecified; I20.1 Angina pectoris with documented spasm; K21.9 Gastro-esophageal reflux disease without esophagitis; F41.9 Anxiety disorder, unspecified; E66.3 Overweight; R30.0 Dysuria; R26.81 Unsteadiness on feet; D64.9 Anemia, unspecified; R73.01 Impaired fasting glucose; E55.9 Vitamin D deficiency, unspecified; Z51.81 Encounter for therapeutic drug level monitoring; Z79.82 Long term (current) use of aspirin; Z87.891 Personal history of nicotine dependence; Z68.27 Body mass index [BMI] 27.0-27.9, adult; Z79.899 Other long term (current) drug therapy | CPT/HCPCS: 96127; 99212 ==

== ENCOUNTER 2024-02-08 12:51 | Outpatient (REF) | payer OTHER, SELFPAY ==
[2024-02-08 16:13] LABS: MANUAL DIFF FLAG NO
[2024-02-08 16:15] LABS: Basophils Percent Auto 0.7 % (0-2); Eosinophils Absolute Auto 0.1 X10*3/uL (0.0-0.4); Eosinophils Percent Auto 2.8 % (0-4); Hematocrit 44.7 % (42.0-52.0); Hemoglobin 15.4 g/dl (14.0-18.0); Imm Gran Abs Auto 0.01 X10*3/uL (0.00-0.03); Imm Gran Pct Auto 0.2 % (0.0-0.4); Lymphocytes Absolute Auto 1.6 X10*3/uL (1.2-4.9); Lymphocytes Percent Auto 34.4 % (20-40); Mean Corpuscular HGB Conc 34.5 g/dl (31.0-36.0); Mean Corpuscular Hemoglobin 32.5 pg (27.0-33.0); Mean Corpuscular Volume 94.3 fL (80.0-98.0); Mean Platelet Volume 10.5 fL (9.4-12.4); Monocytes Absolute Auto 0.3 X10*3/uL (0.1-1.2); Monocytes Percent Auto 6.3 % (2-11); Neutrophils Absolute Auto 2.6 x10*3/uL (2.0-8.3); Neutrophils Percent Auto 55.6 % (45-73); Platelet Count 279 X10*3/uL (160-400); Red Blood Count 4.74 X10*6/uL (4.60-5.80); Red Cell Distribution Width 11.8 % (11.0-16.0); White Blood Count 4.6 X10*3/uL (4.8-10.8)
[2024-02-08 16:18] LABS: Appearance Urine Clear; Color Urine Yellow; Glucose Urine UA Negative (Negative); Leukocyte Esterase Urine Negative (Negative); Nitrite Urine Negative (Negative); PH 6.5 (5.0-9.0); Urine Blood Negative (Negative); Urine Ketones Negative (Negative); Urine Protein Negative (Neg-Trace)
[2024-02-08 16:39] LABS: Estimated Average Glucose 108 mg/dL; Hemoglobin A1C 137.6701 umol/L; Hemoglobin A1c % 5.4 % (<6.0); Total Hemoglobin (HGBA1C) 3918.2462 umol/L
[2024-02-08 17:03] LABS: Folate 9.9 ng/mL (> or = 4.0); Prostate Specific Antigen Scr 0.63 ng/mL (<0.05-4.0); Vitamin B12 379 pg/mL (200-900)
[2024-02-08 17:14] LABS: Alanine Aminotransferase 23 U/L (0-40); Albumin Level 4.2 g/dL (3.5-5.0); Alkaline Phosphatase 56 U/L (39-117); Anion Gap 9 (12-20); Aspartate Amino Transferase 22 U/L (5-37); Bilirubin Total 0.6 mg/dL (0.0-1.0); Blood Urea Nitrogen 12 mg/dL (9-16); Calcium 8.7 mg/dL (8.4-10.2); Carbon Dioxide 30 mmol/L (22-29); Chloride 106 mmol/L (96-108); Cholesterol 219 mg/dL (<200); Estimated Glomerular Filt Rate > 60; Glucose Fasting 96 mg/dL (60-99); HDL Cholesterol 52 mg/dL (>40); LDL Cholesterol Calculated 144 mg/dL (<100); Potassium 4.4 mmol/L (3.3-5.1); Sodium 141 mmol/L (135-145); Total Protein 7.1 g/dL (6.5-8.0); Triglycerides 116 mg/dL (<150)
[2024-02-08 17:23] LABS: TSH reflex Free T4 1.51 uIU/mL (0.32-4.0); Vitamin D 25-OH Total 43.6 ng/mL (>30)
== END 2024-02-08 12:52 | disposition home or self-care (01) ==
LOC: HO.HMGCLDS 12:51
PROVIDERS: PCP Internal Medicine; Visit Provider Internal Medicine
DX: Z00.00 Encounter for general adult medical examination without abnormal findings (principal); E53.8 Deficiency of other specified B group vitamins; E78.00 Pure hypercholesterolemia, unspecified; R73.9 Hyperglycemia, unspecified; D64.9 Anemia, unspecified; E55.9 Vitamin D deficiency, unspecified; R30.0 Dysuria
CPT/HCPCS: 36415; 80053; 80061; 81003; 82306; 82607; 82746; 83036; 84153; 84443; 85025

== ENCOUNTER 2024-05-09 14:44 | Outpatient (AMB) | payer OTHER, SELFPAY ==
[2024-05-09 14:53] VITALS: BP 120/76; PULSE 82; O2SAT 96
--- NOTE | 2024-05-09 14:53 | A.OFFPC_ITS ---
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 Required: No Accompanied by: Self / Same As Patient Allergies tomato [Tomato] Allergy (Severe, Verified 05/09/24 15:24) RASH umeclidinium [From Incruse Ellipta] Allergy (Intermediate, Verified 05/09/24 15:24) Headache mushroom Allergy (Verified 05/09/24 15:24) Anaphylaxis shrimp Allergy (Verified 05/09/24 15:24) Anaphylaxis Medication List - Last Reconciled 05/09/24 by Jack Santo MD amlodipine 2.5 mg PO DAILY aspirin 81 mg PO DAILY atorvastatin 80 mg (2 x 40 mg) PO BEDTIME blood pressure monitor (Blood Pressure Kit) As directed bupropion HCl XL 150 mg PO QAM buspirone 10 mg PO BID 30 days [id number]-cgublwhkcjyec-xuto 50-300-40 mg (Fioricet) 1 cap PO Q8H PRN clopidogrel 75 mg PO DAILY cyclobenzaprine 5 mg PO TID PRN doxepin 50 mg PO BEDTIME fluticasone furoate-vilanterol 200-25 mcg/dose (Breo Ellipta) 1 inh inhalation DAILY gabapentin 600 mg PO TID 30 days lidocaine 5% 1 patch topical DAILY [LUMBAR BACK BRACE Use as directed for increasing low back pain] Ventolin HFA 90 mcg/actuation (albuterol sulfate) 2 puffs inhalation Q6H PRN 30 days NS Tobacco use date assessed: 05/09/24 Dental Screening Dental Screen Date: 05/09/24 Did you have a dental visit in the last 12 months?: No Did you have a dental problem in the last 6 months where you did not have access to dental care?: No Was dental information given to patient?: No HPI 3 month f/u HPI Details Patient comes in today for his follow-up visit States that he feels okay He denies any headaches or dizziness Denies any chest pains, no increased shortness of breath No nausea/vomiting, no abdominal pain No change in bowel habits noted Needs his Atorvastatin Rx refilled States that he got his follow-up labs done a few days after his last visit in January 2024; he has not had any other follow-up labs done since [facility] Medical History Overweight (BMI 25.0-29.9) Colonoscopy refused Coronary vasospasm GERD without esophagitis Right foot drop Smoker Anxiety Lumbar degenerative disc disease Compression fracture of lumbosacral spine COPD (chronic obstructive pulmonary disease) Surgical History S/P cardiac cath H/O cardiac catheterization History of ankle surgery Previous back surgery Family History Father Lung cancer Mother HTN (hypertension) Diabetes Social History Household Members: None Housing: Apartment Do you presently have visiting nurse or other home services: No Alcohol intake: former Patient Tobacco Use Status: Former Tobacco user Tobacco use type: Cigarette Cigarette Packs Per Day: 0 Cigarettes Per Day: 0 e-Cigarette/Vaping Use: Never Used Second Hand Smoke Exposure: Yes service: No Current occupational status: disabled Cognitive needs: No Hearing needs: No Vision needs: No Questionnaire PHQ-9 Over the last 2 weeks, how often have you been bothered by any of the following problems? 1. Little interest or pleasure in doing things: not at all 2. Feeling down, depressed, or hopeless: not at all 3. Trouble falling or staying asleep, or sleeping too much: not at all 4. Feeling tired or having little energy: not at all 5. Poor appetite or overeating: not at all 6. Feeling bad about yourself - or that you are a failure or have let yourself or your family down: not at all 7. Trouble concentrating on things, such as reading the newspaper or watching television: not at all 8. Moving or speaking so slowly that other people could have noticed. Or the opposite - being so fidgety or restless that you have been moving around a lot more than usual: not at all 9. Thoughts that you would be better off or of hurting yourself in some way: not at all Total score: 0 Depression Screening Interpretation: Negative Depression Screening Done: Yes 71771 - PHQ-9 Billing: Yes Source: Developed by Drs. Eleuterio Henriquez, Santi Schmitt and colleagues, with an educational robert from [employer]. Thrive Questionnaire Date Thrive assessed: 05/09/24 I am a: Patient What is your living situation today?: I have a steady place to live Within the past 12 months, did the food you bought not last and you didn't have the money to get more?: Never true Within the past 12 months, did you worry whether your food would run out before you got money to buy more?: Never true Do you have trouble paying for medicines?: No Do you have trouble getting transportation to medical appointments?: No Do you have trouble paying your heating and electricity bill?: No Do you have trouble taking care of your child, family member or friend?: No Do you have trouble with day-to-day activities such as bathing, preparing meals, shopping, managing finances, etc.?: No Are you currently unemployed and looking for a job?: No Are you interested in more education?: No Please select the resources that you would like help with: None Currently or been in a relationship where the following occur: No concerns reported THRIVE Score: 0 AUDIT C Alcohol Use Questionnaire (AUDIT-C) 1. How often do you have a drink containing alcohol?: Never 3. How often do you have six or more drinks on one occasion?: Never Total Score: 0 Score Reviewed/Action Taken: Yes KATIANA-7 AMB Questionnaire KATIANA-7 Date KATIANA - 7 assessed: 05/09/24 Feeling nervous, anxious, or on edge: 0 = Not at all Not being able to stop or control worryin = Not at all Worrying too much about different things: 0 = Not at all Trouble relaxin = Not at all Being so restless that it is hard to sit still: 0 = Not at all Becoming easily annoyed or irritable: 0 = Not at all Feeling afraid as if something awful might happen: 0 = Not at all Total KATIANA-7 score (0-4 normal; 5-9 mild; 10-14 moderate; 15-21 severe): 0 Source: Developed by Ruthy Hernandez Kurt Kroenke and colleagues, with an educational robert from [employer]. Review of Systems Const Denies chills, Denies fatigue, Denies fever(s) and Denies headache(s) ENT Denies dysphagia, Denies dizziness, Denies otalgia, Denies headache(s), Denies neck pain, Denies odynophagia and Denies sore throat Card Denies chest pain, Denies irregular heart rhythm, Denies palpitations and Reports dyspnea on exertion (mild) Resp Denies chest congestion, Denies cough and Reports dyspnea on exertion (mild) GI Denies abdominal pain, Denies constipation, Denies dysphagia, Denies heartburn, Denies diarrhea, Denies nausea, Denies odynophagia and Denies vomiting Denies difficulty urinating, Denies dysuria and Denies urinary frequency Musc Details: (+) right foot pain Reports back pain (over the lower back (chronic)), Denies arthralgias and Denies neck pain Skin/Breast Denies rash Neuro Denies dizziness, Denies headache(s) and Denies paresthesias Endo Denies fatigue and Denies palpitations Physical exam (Primary Care) Vital Signs: Last Vital Signs Pulse 82 05/09/24 14:53 BP 120/76 05/09/24 14:53 Pulse Ox 96 05/09/24 14:53 Oxygen Delivery Method Room Air 05/09/24 14:53 Tobacco/Smoking Status: Tobacco use Status Tobacco use date assessed 05/09/24 05/09/24 14:56 Patient Tobacco Use Status Former Tobacco user 05/09/24 14:56 Tobacco use type Cigarette 05/09/24 14:56 e-Cigarette/Vaping Use Never Used 05/09/24 14:56 PHQ-9: PHQ-9 Score PHQ-9: Total score 0 05/09/24 15:29 Depression Screening Interpretation: Negative Thrive Assessment: Date of Thrive Assessment Date Thrive assessed 05/09/24 05/09/24 14:56 Currently or been in a relationship where the following occur: No concerns reported Const General: no acute distress and alert HENMT Throat: Yes posterior oropharynx normal and Yes tonsils normal (no TP congestion) Neck Neck: Yes supple and No lymphadenopathy Thyroid: Thyroid normal Resp Auscultation: no rales, rhonchi (diminished breath sounds with occasional rhonchi bilaterally), no wheezes and diminished lung sounds bilateral Cardio Rate: regular rate Rhythm: regular rhythm Heart sounds: no murmurs GI Palpation (GI): Soft to palpation and nontender Auscultation: normal bowel sounds General: Yes no CVA tenderness Back/Spine/Pelvis Back: no CVA tenderness Thoracic/Lumbar Spine: lumbar spinal tenderness (increased) Skin Rashes: no rashes Extrem General: Yes no clubbing, cyanosis or edema Results Reviewed Results Reviewed: Laboratory Tests 02/08/21 03/15/23 02/08/24 07:10 10:00 13:14 WBC 6.8 Hgb 14.8 Hct 44.4 Plt Count 301 Sodium 139 Potassium 4.1 Creatinine Estimated GFR Fasting Glucose Hemoglobin A1c % Calcium AST ALT Triglycerides 88 Cholesterol LDL Cholesterol, Calc HDL Cholesterol PSA Screen 0.63 Vitamin B12 379 25-OH Vitamin D Total Folate 9.9 TSH Ur Specific Friend Urine Protein Urine Glucose (UA) Urine Blood Urine Nitrite Ur Leukocyte Esterase 02/08/24 13:16 WBC 4.6 L Hgb 15.4 Hct 44.7 Plt Count 279 D Sodium 141 Potassium 4.4 D Creatinine 0.80 Estimated GFR > 60 Fasting Glucose 96 Hemoglobin A1c % 5.4 Calcium 8.7 AST 22 ALT 23 Triglycerides 116 Cholesterol 219 H LDL Cholesterol, Calc 144 H HDL Cholesterol 52 PSA Screen Vitamin B12 25-OH Vitamin D Total 43.6 Folate TSH 1.51 Ur Specific Friend 1.010 Urine Protein Negative Urine Glucose (UA) Negative Urine Blood Negative Urine Nitrite Negative Ur Leukocyte Esterase Negative Coding Level of Care Code Est Pt Level 4 (03771) Diagnoses Degeneration of intervertebral disc of lumbar region with discogenic back pain and lower extremity pain M51.362 Disc-related pain type: discogenic back pain and lower extremity pain Chronic obstructive pulmonary disease, unspecified COPD type J44.9 COPD type: unspecified COPD Hypercholesterolemia E78.00 Coronary vasospasm I20.1 GERD without esophagitis K21.9 Anxiety F41.9 Overweight (BMI 25.0-29.9) E66.3 Additional Codes PHQ-9 - 64277 - PHQ-9 Billing: Yes ([id number]) Assessment & Plan Assessment & Plan (1) Lumbar degenerative disc disease: Comment: Lumbar spine CT done on 02/09/2021 revealed (+) multilevel facet arthritis and degenerative disc changes, with a complete compression fracture of L5 -- patient sustained a crush injury to his lumbar spine in 1982 Code(s): M51.36 - Other intervertebral disc degeneration, lumbar region Category: Medical Qualifiers: Disc-related pain type: discogenic back pain and lower extremity pain Qualified Code(s): M51.362 - Other intervertebral disc degeneration, lumbar region with discogenic back pain and lower extremity pain Plan: Lumbar spine MRI done in 2020 revealed (+) severe compression fracture seen at L5 with fragmentation and displacement of the fracture fragments resulting in significant distortion at this level. Severe narrowing of the right-sided neural foramen with compression of the exiting right L4 nerve root He also had a severe narrowing of the left neural foramen with compression of the exiting left L5 nerve root at L5-S1 He was previously sent for physical therapy for his lower back, which he states helped Continue Gabapentin 600 mg TID and Lidocaine 5% patches to apply to painful areas on lower back QD PRN (2) COPD (chronic obstructive pulmonary disease): Code(s): J44.9 - Chronic obstructive pulmonary disease, unspecified Category: Medical Qualifiers: COPD type: unspecified COPD Qualified Code(s): J44.9 - Chronic obstructive pulmonary disease, unspecified Plan: Continue Breo Ellipta 200-25 mcg 1 inhalation QD and Albuterol HFA 2 inhalations every 6 hours as needed Have offered again to refer him to pulmonary for further management but he continues to decline referral - does not feel that he needs to see a specialist at this time (3) Hypercholesterolemia: Code(s): E78.00 - Pure hypercholesterolemia, unspecified Category: Medical Plan: He has again not been able to get his previously ordered labs done prior to his appt today although he did have some labs done back in January 2024 States that he will try to get his follow up labs done AMY Reinforced low cholesterol diet Continue Atorvastatin 80 mg QD after his coronary vasospasm in late February 2023 Will recheck his labs and fasting lipids again in 4 months for follow up (4) Coronary vasospasm: Comment: [facility] [place] 02/2023 Code(s): I20.1 - Angina pectoris with documented spasm Category: Medical Plan: He presented to the ER back in February 2023 for chest pain and work ups revealed (+) elevated troponin level and he was thought to be in NSTEMI Echocardiogram done revealed normal LV ejection fraction of 60 to 65% but (+) regional wall motion abnormality apparent in RCA territory Patient was then transferred to [facility] [place] for cardiac catheterization His cardiac catherization showed no significant CAD; repeat echocardiogram came out normal and his chest pains were then thought to be possibly due to coronary vasospasm Patient states that he's had no recurrence of chest pains since Continue Aspirin 81 mg QD, Clopidogrel 75 mg QD, Amlodpine 2.5 mg QD and Atorvastatin 80 mg QD Follow up with cardiology as scheduled (5) GERD without esophagitis: Code(s): K21.9 - Gastro-esophageal reflux disease without esophagitis Category: Medical Plan: Dietary restrictions reinforced Patient used to take Omeprazole 20 mg QD but states that he has not had to take Rx in a while now and has not had any flare up of his symptoms lately (6) Anxiety: Code(s): F41.9 - Anxiety disorder, unspecified Category: Medical Plan: Continue Bupropion SR 150 mg Q AM, Buspirone 10 mg BID and Doxepin 50 mg Q HS (7) Overweight (BMI 25.0-29.9): Code(s): E66.3 - Overweight Category: Medical Plan: Reinforced diet; exercise is unrealistic given his increasing low back pain lately Plan Follow up in 4 months Orders: Orders Complete Blood Count Auto Diff 4 Months D64.9 - Anemia, unspecified Comprehensive Artemus. Panel Fast 4 Months E78.00 - Pure hypercholesterolemia, unspecified TSH reflex Free T4 4 Months E78.00 - Pure hypercholesterolemia, unspecified UA CC w/rflx Micro + Cult 4 Months R30.0 - Dysuria Lipid Panel 4 Months E78.00 - Pure hypercholesterolemia, unspecified Medications: Changed From atorvastatin 80 mg (2 x 40 mg) PO BEDTIME 30 tabs 0RF To atorvastatin 80 mg PO BEDTIME 90 days 90 tabs 1RF
== END 2024-05-09 15:42 | disposition home or self-care (01) ==
LOC: HO.HMCH 14:45
PROVIDERS: PCP Internal Medicine; Visit Provider Internal Medicine
DX: M51.362 Other intervertebral disc degeneration, lumbar region with discogenic back pain and lower extremity pain (principal); J44.9 Chronic obstructive pulmonary disease, unspecified; E78.00 Pure hypercholesterolemia, unspecified; I20.1 Angina pectoris with documented spasm; K21.9 Gastro-esophageal reflux disease without esophagitis; F41.9 Anxiety disorder, unspecified; E66.3 Overweight

== ENCOUNTER → 2024-05-09 14:44 | Outpatient (BNVA) | payer OTHER, SELFPAY | PROVIDERS: PCP Internal Medicine; Visit Provider Internal Medicine | DX: M51.362 Other intervertebral disc degeneration, lumbar region with discogenic back pain and lower extremity pain (principal); J44.9 Chronic obstructive pulmonary disease, unspecified; E78.00 Pure hypercholesterolemia, unspecified; I20.1 Angina pectoris with documented spasm; K21.9 Gastro-esophageal reflux disease without esophagitis; F41.9 Anxiety disorder, unspecified; E66.3 Overweight | CPT/HCPCS: 96127; 99212 ==

== ENCOUNTER 2024-06-18 09:35 | Outpatient (AMB) | payer OTHER, SELFPAY ==
--- NOTE | 2024-06-18 09:38 | MHC.PC.OV ---
Vital Signs 06/18/24 09:39 Height 5 ft 9 in Weight 146 lb BMI 21.6 BP 110/70 Blood Pressure Location Lt brachial Position Sitting Pulse 81 Pulse Source Pulse Oximeter Pulse Oximetry (%) 95 Oxygen Delivery Method Room Air Intake Visit Reasons: possible hernia [employer] Instructor Required: No Accompanied by: Self / Same As Patient Allergies tomato [Tomato] Allergy (Severe, Verified 06/18/24 10:07) RASH umeclidinium [From Incruse Ellipta] Allergy (Intermediate, Verified 06/18/24 10:07) Headache mushroom Allergy (Verified 06/18/24 10:07) Anaphylaxis shrimp Allergy (Verified 06/18/24 10:07) Anaphylaxis Medication List - Last Reconciled 06/18/24 by Jack Santo MD amlodipine 2.5 mg PO DAILY aspirin 81 mg PO DAILY atorvastatin 80 mg PO BEDTIME 90 days blood pressure monitor (Blood Pressure Kit) As directed bupropion HCl XL 150 mg PO QAM buspirone 10 mg PO BID 30 days [id number]-svjejikbltlvv-[id number] 50-300-40 mg (Fioricet) 1 cap PO Q8H PRN clopidogrel 75 mg PO DAILY cyclobenzaprine 5 mg PO TID PRN doxepin 50 mg PO BEDTIME fluticasone furoate-vilanterol 200-25 mcg/dose (Breo Ellipta) 1 inh inhalation DAILY gabapentin 600 mg PO TID 30 days lidocaine 5% 1 patch topical DAILY [LUMBAR BACK BRACE Use as directed for increasing low back pain] Ventolin HFA 90 mcg/actuation (albuterol sulfate) 2 puffs inhalation Q6H PRN 30 days NS Tobacco use date assessed: 06/18/24 Dental Screening Dental Screen Date: 06/18/24 Did you have a dental visit in the last 12 months?: Yes Did you have a dental problem in the last 6 months where you did not have access to dental care?: No Was dental information given to patient?: Patient has dentist HPI possible hernia HPI Details Patient comes in today for evaluation of a right lower abdominal pain/discomfort - is accompanied by his GROUTMAN today Patient states that his symptoms (recurrent right lower abdominal pain) started late last week and he thinks that he may have strained something from his severe coughing spells as he recalls waking up with severe coughing fits that lasted for a while He went to a local urgent care center last Sunday to get this checked out and after being examined, was advised that he may have a beginning hernia or just a muscle strain but should have this checked out further Patient states that he continues to experience recurrent sharp right lower abdominal pain since that are aggravated with exertion and with coughing but has not really noticed any significant bulging or mass over his abdomen lately He also continues to cough repeatedly off and on and is unfortunately still smoking He has tried nicotine patches before to help him quit smoking but states that they make him feel very nauseous when he outs the patches on [facility] Medical History Overweight (BMI 25.0-29.9) Colonoscopy refused Coronary vasospasm GERD without esophagitis Right foot drop Smoker Anxiety Lumbar degenerative disc disease Compression fracture of lumbosacral spine COPD (chronic obstructive pulmonary disease) Surgical History S/P cardiac cath H/O cardiac catheterization History of ankle surgery Previous back surgery Family History Father Lung cancer Mother HTN (hypertension) Diabetes Social History (Updated 06/18/24 @ 10:33 by Jack Santo MD) Household Members: None Housing: Apartment Do you presently have visiting nurse or other home services: No Alcohol intake: former Patient Tobacco Use Status: Current everyday Tobacco user Tobacco use type: Cigarette Cigarette Packs Per Day: 0 Cigarettes Per Day: 0 e-Cigarette/Vaping Use: Never Used Second Hand Smoke Exposure: Yes service: No Current occupational status: disabled Cognitive needs: No Hearing needs: No Vision needs: No Questionnaire PHQ-9 Over the last 2 weeks, how often have you been bothered by any of the following problems? 1. Little interest or pleasure in doing things: not at all 2. Feeling down, depressed, or hopeless: not at all 3. Trouble falling or staying asleep, or sleeping too much: not at all 4. Feeling tired or having little energy: not at all 5. Poor appetite or overeating: not at all 6. Feeling bad about yourself - or that you are a failure or have let yourself or your family down: not at all 7. Trouble concentrating on things, such as reading the newspaper or watching television: not at all 8. Moving or speaking so slowly that other people could have noticed. Or the opposite - being so fidgety or restless that you have been moving around a lot more than usual: not at all 9. Thoughts that you would be better off or of hurting yourself in some way: not at all Total score: 0 Depression Screening Interpretation: Negative Depression Screening Done: Yes 07326 - PHQ-9 Billing: Yes Source: Developed by Drs. Eleuterio Henriquez, Ruthy Mares, Santi Madison and colleagues, with an educational robert from [employer]. Thrive Questionnaire Date Thrive assessed: 06/18/24 I am a: Patient What is your living situation today?: I have a steady place to live Within the past 12 months, did the food you bought not last and you didn't have the money to get more?: Never true Within the past 12 months, did you worry whether your food would run out before you got money to buy more?: Never true Do you have trouble paying for medicines?: No Do you have trouble getting transportation to medical appointments?: No Do you have trouble paying your heating and electricity bill?: No Do you have trouble taking care of your child, family member or friend?: No Do you have trouble with day-to-day activities such as bathing, preparing meals, shopping, managing finances, etc.?: No Are you currently unemployed and looking for a job?: No Are you interested in more education?: No Please select the resources that you would like help with: None Currently or been in a relationship where the following occur: No concerns reported THRIVE Score: 0 AUDIT C Alcohol Use Questionnaire (AUDIT-C) 1. How often do you have a drink containing alcohol?: Never 3. How often do you have six or more drinks on one occasion?: Never Total Score: 0 Score Reviewed/Action Taken: Yes KATIANA-7 AMB Questionnaire KATIANA-7 Date KATIANA - 7 assessed: 06/18/24 Feeling nervous, anxious, or on edge: 0 = Not at all Not being able to stop or control worryin = Not at all Worrying too much about different things: 0 = Not at all Trouble relaxin = Not at all Being so restless that it is hard to sit still: 0 = Not at all Becoming easily annoyed or irritable: 0 = Not at all Feeling afraid as if something awful might happen: 0 = Not at all Total KATIANA-7 score (0-4 normal; 5-9 mild; 10-14 moderate; 15-21 severe): 0 Source: Developed by Drs. Eleuterio Henriquez, Ruthy Mares, Santi Madison and colleagues, with an educational robert from [employer]. Review of Systems Const Denies chills, Denies fatigue, Denies fever(s) and Denies headache(s) ENT Denies dysphagia, Denies dizziness, Denies headache(s), Denies neck pain and Denies sore throat Card Denies chest pain, Denies irregular heart rhythm, Denies palpitations and Reports dyspnea on exertion (mild) Resp Reports chest congestion (at times, especially in the morning), Reports cough (recurrent - coughs up thick whitish phlegm often), Reports excessive phlegm production, Reports dyspnea on exertion (mild) and Denies wheezing GI Reports abdominal pain (recurrent lately, over the right lower abdomen), Denies constipation, Denies dysphagia, Denies heartburn, Denies diarrhea, Denies nausea and Denies vomiting Denies difficulty urinating, Denies dysuria and Denies urinary frequency Musc Details: (+) right foot pain Reports back pain (over the lower back (chronic)), Denies arthralgias and Denies neck pain Skin/Breast Denies rash Neuro Denies dizziness, Denies headache(s) and Denies paresthesias Endo Denies fatigue and Denies palpitations Aller/Immun Denies wheezing Physical exam (Primary Care) Vital Signs: Last Vital Signs Pulse 81 06/18/24 09:39 BP 110/70 06/18/24 09:39 Pulse Ox 95 06/18/24 09:39 Oxygen Delivery Method Room Air 06/18/24 09:39 BMI result Body Mass Index 21.6 Tobacco/Smoking Status: Tobacco use Status Tobacco use date assessed 06/18/24 06/18/24 09:44 Patient Tobacco Use Status Former Tobacco user 06/18/24 09:44 Tobacco use type Cigarette 06/18/24 09:44 e-Cigarette/Vaping Use Never Used 04/30/25 09:44 PHQ-9: PHQ-9 Score PHQ-9: Total score 0 06/18/24 09:44 Depression Screening Interpretation: Negative Thrive Assessment: Date of Thrive Assessment Date Thrive assessed 06/18/24 06/18/24 09:44 Currently or been in a relationship where the following occur: No concerns reported Const General: no acute distress and alert HENMT Throat: Yes posterior oropharynx normal and Yes tonsils normal (no TP congestion) Neck Neck: Yes supple and No lymphadenopathy Thyroid: Thyroid normal Resp Auscultation: no rales, rhonchi (diminished breath sounds with occasional rhonchi bilaterally), no wheezes and diminished lung sounds bilateral Cardio Rate: regular rate Rhythm: regular rhythm Heart sounds: no murmurs GI Palpation (GI): Soft to palpation, Tenderness to palpation present (GI) in the RLQ, no guarding, not rigid, no masses and No Rebound tenderness present Auscultation: normal bowel sounds General: Yes no CVA tenderness Back/Spine/Pelvis Back: no CVA tenderness Thoracic/Lumbar Spine: lumbar spinal tenderness (increased) Skin Rashes: no rashes Extrem General: Yes no clubbing, cyanosis or edema Coding Level of Care Code Est Pt Level 3 (79074) Diagnoses Right lower quadrant abdominal pain R10.31 Chronic obstructive pulmonary disease, unspecified COPD type J44.9 COPD type: unspecified COPD Smoker F17.200 Additional Codes PHQ-9 - 54162 - PHQ-9 Billing: Yes ([id number]) Assessment & Plan Assessment & Plan (1) Right lower quadrant abdominal pain: Code(s): R10.31 - Right lower quadrant pain Category: Medical Plan: Have advised patient that he most likely suffered a musculoskeletal strain of his right lower abdominal muscles from one of his severe bouts of coughing spells but we are unable to completely r/o a beginning hernia at this time Will send him for a limited/targeted pelvic US of the right lower abdomen for further evaluation and to r/o the presence of an abdominal wall hernia (2) COPD (chronic obstructive pulmonary disease): Code(s): J44.9 - Chronic obstructive pulmonary disease, unspecified Category: Medical Qualifiers: COPD type: unspecified COPD Qualified Code(s): J44.9 - Chronic obstructive pulmonary disease, unspecified Plan: Continue Breo Ellipta 200-25 mcg 1 inhalation QD and Albuterol HFA 2 inhalations every 6 hours as needed Have offered again to refer him to pulmonary for further management but he continues to decline referral - does not feel that he needs to see a specialist at this time (3) Smoker: Code(s): F17.200 - Nicotine dependence, unspecified, uncomplicated Category: Social Hx Plan: Patient is counseled again on complete smoking cessation Plan Follow up as scheduled in August 2024 Orders: Orders US pelvic limited Today R10.31 - Right lower quadrant pain
[2024-06-18 09:39] VITALS: BP 110/70; PULSE 81; O2SAT 95; BMI 21.6
== END 2024-06-18 10:16 | disposition home or self-care (01) ==
LOC: HO.HMCH 09:36
PROVIDERS: PCP Internal Medicine; Visit Provider Internal Medicine
DX: R10.31 Right lower quadrant pain (principal); J44.9 Chronic obstructive pulmonary disease, unspecified; F17.200 Nicotine dependence, unspecified, uncomplicated

== ENCOUNTER → 2024-06-18 09:35 | Outpatient (BNVA) | payer OTHER, SELFPAY | PROVIDERS: PCP Internal Medicine; Visit Provider Internal Medicine | DX: R10.31 Right lower quadrant pain (principal); J44.9 Chronic obstructive pulmonary disease, unspecified; F17.210 Nicotine dependence, cigarettes, uncomplicated | CPT/HCPCS: 96127; 99212 ==

== ENCOUNTER 2024-08-08 14:29 | Outpatient (REF) | payer OTHER, SELFPAY ==
--- NOTE | ~2024-08-08 | US_ITS ---
EXAMINATION: US right lower quadrant, LIMITED CLINICAL INFORMATION: Right lower quadrant pain, evaluate for hernia COMPARISON: CT February 10, 2021 TECHNIQUE: Grayscale ultrasound images were obtained in the right lower quadrant. FINDINGS: Abdominal wall appears intact. No herniation was documented. US/US pelvic limited IMPRESSION: Unremarkable examination. Electronically signed by: Murray York MD 08/08/2024 03:45 PM EDT
== END 2024-08-08 14:30 | disposition home or self-care (01) ==
LOC: HO.HMGCX 14:29
PROVIDERS: PCP Internal Medicine; Visit Provider Internal Medicine
DX: R10.31 Right lower quadrant pain (principal)
CPT/HCPCS: 76857

== ENCOUNTER → 2024-08-08 14:50 | Outpatient (BNV) | payer OTHER, SELFPAY | PROVIDERS: PCP Internal Medicine; Visit Provider Radiology Diagnostic Radiology | DX: R10.813 Right lower quadrant abdominal tenderness (principal) | CPT/HCPCS: 76857 ==

== ENCOUNTER 2024-09-16 14:35 | Outpatient (AMB) | payer OTHER, SELFPAY ==
--- NOTE | 2024-09-16 14:42 | MHC.PC.OV ---
Vital Signs 09/16/24 14:43 Height 5 ft 9 in Weight 144 lb 8 oz BMI 21.3 BP 142/88 H Blood Pressure Location Lt brachial Position Sitting Pulse 81 Pulse Source Pulse Oximeter Pulse Oximetry (%) 96 Oxygen Delivery Method Room Air Intake Visit Reasons: mark Greeting Card Writer Required: No Accompanied by: Self / Same As Patient Allergies tomato (Tomato) Allergy (Severe, Verified 09/16/24 15:19) RASH umeclidinium (From Incruse Ellipta) Allergy (Intermediate, Verified 09/16/24 15:19) Headache mushroom Allergy (Verified 09/16/24 15:19) Anaphylaxis shrimp Allergy (Verified 09/16/24 15:19) Anaphylaxis Medication List - Last Reconciled 09/16/24 by Jack Santo MD amlodipine 2.5 mg PO DAILY aspirin 81 mg PO DAILY atorvastatin 80 mg PO BEDTIME 90 days blood pressure monitor (Blood Pressure Kit) As directed bupropion HCl XL 150 mg PO QAM buspirone 10 mg PO BID 30 days qzwcdxurze-lnxanunbtbtcm-vvoa 50-300-40 mg (Fioricet) 1 cap PO Q8H PRN clopidogrel 75 mg PO DAILY cyclobenzaprine 5 mg PO TID PRN doxepin 50 mg PO BEDTIME fluticasone furoate-vilanterol 200-25 mcg/dose (Breo Ellipta) 1 inh inhalation DAILY gabapentin 600 mg PO TID 30 days lidocaine 5% 1 patch topical DAILY [LUMBAR BACK BRACE Use as directed for increasing low back pain] Ventolin HFA 90 mcg/actuation (albuterol sulfate) 2 puffs inhalation Q6H PRN 30 days NS Tobacco use date assessed: 09/16/24 Dental Screening Dental Screen Date: 09/16/24 Did you have a dental visit in the last 12 months?: Yes Did you have a dental problem in the last 6 months where you did not have access to dental care?: No Was dental information given to patient?: Patient has dentist KAMARI flores HPI Details Patient comes in today for his follow up visit He continues to complain of increased pain over his lower back and states that his lower back feels worse during rainy and colder days He also remains very unsteady on his feet and states that he is always afraid he is going to fall when getting in and out of the shower and needs help all the time when doing so States that one of his friends has a back brace that covers almost the entire back and he was told that it helped her a lot more than most of her previous braces and he is looking for a new back brace prescription so he can try to get the same brace His friend also states that patient has a learning disability and he cannot read too well and really needs a lot of help, including with his grocery shopping as well as managing his medications and that the SIGNAL TECHNICIAN hours that he gets now is not enough and they are requesting for a letter stating his need for more hours than what he is currently getting Patient denies any headaches or dizziness Denies any chest pains, no increased SOB No nausea/vomiting, no abdominal pain No change in bowel habits noted He was not able to get his follow up labs done prior to his appointment today [facility] Medical History Learning disability Overweight (BMI 25.0-29.9) Colonoscopy refused Coronary vasospasm GERD without esophagitis Right foot drop Smoker Anxiety Lumbar degenerative disc disease Compression fracture of lumbosacral spine COPD (chronic obstructive pulmonary disease) Surgical History S/P cardiac cath H/O cardiac catheterization History of ankle surgery Previous back surgery Family History Father Lung cancer Mother HTN (hypertension) Diabetes Social History Household Members: None Housing: Apartment Do you presently have visiting nurse or other home services: No Alcohol intake: former Patient Tobacco Use Status: Current everyday Tobacco user Tobacco use type: Cigarette Cigarette Packs Per Day: 0 Cigarettes Per Day: 0 e-Cigarette/Vaping Use: Never Used Second Hand Smoke Exposure: Yes service: No Current occupational status: disabled Cognitive needs: No Hearing needs: No Vision needs: No Questionnaire PHQ-9 Over the last 2 weeks, how often have you been bothered by any of the following problems? 1. Little interest or pleasure in doing things: not at all 2. Feeling down, depressed, or hopeless: not at all 3. Trouble falling or staying asleep, or sleeping too much: not at all 4. Feeling tired or having little energy: not at all 5. Poor appetite or overeating: not at all 6. Feeling bad about yourself - or that you are a failure or have let yourself or your family down: not at all 7. Trouble concentrating on things, such as reading the newspaper or watching television: not at all 8. Moving or speaking so slowly that other people could have noticed. Or the opposite - being so fidgety or restless that you have been moving around a lot more than usual: not at all 9. Thoughts that you would be better off or of hurting yourself in some way: not at all Total score: 0 Depression Screening Interpretation: Negative Depression Screening Done: Yes 08761 - PHQ-9 Billing: Yes Source: Developed by Drs. Eleuterio Henriquez, Ruthy Mares, Santi Madison and colleagues, with an educational robert from [employer]. Thrive Questionnaire Date Thrive assessed: 09/16/24 I am a: Patient What is your living situation today?: I have a steady place to live Within the past 12 months, did the food you bought not last and you didn't have the money to get more?: Never true Within the past 12 months, did you worry whether your food would run out before you got money to buy more?: Never true Do you have trouble paying for medicines?: No Do you have trouble getting transportation to medical appointments?: No Do you have trouble paying your heating and electricity bill?: No Do you have trouble taking care of your child, family member or friend?: No Do you have trouble with day-to-day activities such as bathing, preparing meals, shopping, managing finances, etc.?: No Are you currently unemployed and looking for a job?: No Are you interested in more education?: No Please select the resources that you would like help with: None Currently or been in a relationship where the following occur: No concerns reported THRIVE Score: 0 AUDIT C Alcohol Use Questionnaire (AUDIT-C) 1. How often do you have a drink containing alcohol?: Never 3. How often do you have six or more drinks on one occasion?: Never Total Score: 0 Score Reviewed/Action Taken: Yes KATIANA-7 AMB Questionnaire KATIANA-7 Date KATIANA - 7 assessed: 09/16/24 Feeling nervous, anxious, or on edge: 0 = Not at all Not being able to stop or control worryin = Not at all Worrying too much about different things: 0 = Not at all Trouble relaxin = Not at all Being so restless that it is hard to sit still: 0 = Not at all Becoming easily annoyed or irritable: 0 = Not at all Feeling afraid as if something awful might happen: 0 = Not at all Total KATIANA-7 score (0-4 normal; 5-9 mild; 10-14 moderate; 15-21 severe): 0 Source: Developed by Drs. Eleuterio Henriquez, Ruthy Mares, Santi Madison and colleagues, with an educational robert from [employer]. Review of Systems Const Denies chills, Denies fatigue, Denies fever(s) and Denies headache(s) ENT Denies dysphagia, Denies dizziness, Denies otalgia, Denies headache(s), Denies neck pain, Denies odynophagia and Denies sore throat Card Denies chest pain, Denies irregular heart rhythm, Denies palpitations and Reports dyspnea on exertion (mild) Resp Reports chest congestion (at times, especially in the morning), Reports cough (recurrent - coughs up thick whitish phlegm often), Reports dyspnea on exertion (mild) and Denies wheezing GI Denies abdominal pain, Denies constipation, Denies dysphagia, Denies heartburn, Denies diarrhea, Denies nausea, Denies odynophagia and Denies vomiting Denies difficulty urinating, Denies dysuria and Denies urinary frequency Musc Details: (+) right foot pain Reports abnormal gait (very unsteady gait), Reports back pain (over the lower back (chronic)), Denies arthralgias and Denies neck pain Skin/Breast Denies rash Neuro Reports abnormal gait (very unsteady gait), Denies dizziness, Denies headache(s) and Denies paresthesias Endo Denies fatigue and Denies palpitations Aller/Immun Denies wheezing Physical exam (Primary Care) Vital Signs: Last Vital Signs Pulse 81 09/16/24 14:43 BP 142/88 H 09/16/24 14:43 Pulse Ox 96 09/16/24 14:43 Oxygen Delivery Method Room Air 09/16/24 14:43 BMI result Body Mass Index 21.3 Tobacco/Smoking Status: Tobacco use Status Tobacco use date assessed 09/16/24 09/16/24 14:45 Patient Tobacco Use Status Current everyday Tobacco 09/16/24 14:45 Tobacco use type Cigarette 09/16/24 14:45 e-Cigarette/Vaping Use Never Used 09/16/24 14:45 PHQ-9: PHQ-9 Score PHQ-9: Total score 0 09/16/24 14:45 Depression Screening Interpretation: Negative Thrive Assessment: Date of Thrive Assessment Date Thrive assessed 09/16/24 09/16/24 14:45 Currently or been in a relationship where the following occur: No concerns reported Const General: no acute distress and alert HENMT Throat: Yes posterior oropharynx normal and Yes tonsils normal (no TP congestion) Neck Neck: Yes supple and No lymphadenopathy Thyroid: Thyroid normal Resp Auscultation: no rales, rhonchi (diminished breath sounds with occasional rhonchi bilaterally), no wheezes and diminished lung sounds bilateral Cardio Rate: regular rate Rhythm: regular rhythm Heart sounds: no murmurs GI Palpation (GI): Soft to palpation and nontender Auscultation: normal bowel sounds General: Yes no CVA tenderness Back/Spine/Pelvis Back: no CVA tenderness Thoracic/Lumbar Spine: lumbar spinal tenderness (increased) Skin Rashes: no rashes Extrem General: Yes no clubbing, cyanosis or edema Coding Level of Care Code Est Pt Level 4 (06937) Complex EM visit Add On G2211 Diagnoses Degeneration of intervertebral disc of lumbar region with discogenic back pain and lower extremity pain M51.362 Disc-related pain type: discogenic back pain and lower extremity pain Chronic obstructive pulmonary disease, unspecified COPD type J44.9 COPD type: unspecified COPD Hypercholesterolemia E78.00 Coronary vasospasm I20.1 GERD without esophagitis K21.9 Anxiety F41.9 Learning disability F81.9 Additional Codes PHQ-9 - 16086 - PHQ-9 Billing: Yes ([id number]) Assessment & Plan Assessment & Plan (1) Lumbar degenerative disc disease: Comment: Lumbar spine CT done on 02/09/2021 revealed (+) multilevel facet arthritis and degenerative disc changes, with a complete compression fracture of L5 -- patient sustained a crush injury to his lumbar spine in 1982 Code(s): M51.36 - Other intervertebral disc degeneration, lumbar region Category: Medical Qualifiers: Disc-related pain type: discogenic back pain and lower extremity pain Qualified Code(s): M51.362 - Other intervertebral disc degeneration, lumbar region with discogenic back pain and lower extremity pain Plan: Lumbar spine MRI done in 2020 revealed (+) severe compression fracture seen at L5 with fragmentation and displacement of the fracture fragments resulting in significant distortion at this level. Severe narrowing of the right-sided neural foramen with compression of the exiting right L4 nerve root He also had a severe narrowing of the left neural foramen with compression of the exiting left L5 nerve root at L5-S1 He was previously sent for physical therapy for his lower back, which he states helped but he continues to have a very unsteady gait due to his lower back issues Continue Gabapentin 600 mg TID and Lidocaine 5% patches to apply to painful areas on lower back QD PRN Per his request, Rx for a Back Brace provided (2) COPD (chronic obstructive pulmonary disease): Code(s): J44.9 - Chronic obstructive pulmonary disease, unspecified Category: Medical Qualifiers: COPD type: unspecified COPD Qualified Code(s): J44.9 - Chronic obstructive pulmonary disease, unspecified Plan: Continue Breo Ellipta 200-25 mcg 1 inhalation QD and Albuterol HFA 2 inhalations every 6 hours as needed Have offered again to refer him to pulmonary for further management but he continues to decline referral - does not feel that he needs to see a specialist at this time (3) Hypercholesterolemia: Code(s): E78.00 - Pure hypercholesterolemia, unspecified Category: Medical Plan: He has again not been able to get his previously ordered labs done prior to his appt today Reinforced low cholesterol diet He was started on Atorvastatin 80 mg QD after his coronary vasospasm in late February 2023 but patient now admits that he is not taking his Atorvastatin as he was advised by someone that taking it will increase his risk of a heart attack ???! States that he has made a lot of changes to his diet over the past year and feels that he is now eating much healthier and would like to continue with diet modification for now Will recheck his labs and fasting lipids in 4 months for follow up - have advised patient to be sure to get his labs done then as it will be a year from when he last had his cholesterol levels checked at that time (4) Coronary vasospasm: Comment: [facility] [place] 02/2023 Code(s): I20.1 - Angina pectoris with documented spasm Category: Medical Plan: He presented to the ER back in February 2023 for chest pain and work ups revealed (+) elevated troponin level and he was thought to be in NSTEMI Echocardiogram done revealed normal LV ejection fraction of 60 to 65% but (+) regional wall motion abnormality apparent in RCA territory Patient was then transferred to [facility] [place] for cardiac catheterization His cardiac catherization showed no significant CAD; repeat echocardiogram came out normal and his chest pains were then thought to be possibly due to coronary vasospasm Patient states that he's had no recurrence of chest pains since Continue Aspirin 81 mg QD, Clopidogrel 75 mg QD and Amlodpine 2.5 mg QD; he was also supposed to be on Atorvastatin 80 mg QD but he now admits that he has not been taking it for the past year or so Follow up with cardiology as scheduled (5) GERD without esophagitis: Code(s): K21.9 - Gastro-esophageal reflux disease without esophagitis Category: Medical Plan: Dietary restrictions reinforced Patient used to take Omeprazole 20 mg QD but states that he has not had to take Rx in a while now and has not had any flare up of his symptoms lately (6) Anxiety: Code(s): F41.9 - Anxiety disorder, unspecified Category: Medical Plan: Continue Bupropion SR 150 mg Q AM, Buspirone 10 mg BID and Doxepin 50 mg Q HS (7) Learning disability: Code(s): F81.9 - Developmental disorder of scholastic skills, unspecified Category: Social Hx Plan: Patient states that he has trouble getting his own groceries as he has limited reading skills and he has a hard time figuring out what foods or groceries he can get that won't affect his health and medical issues He also had a hard time managing his own meds due to this and would benefit from more help and more SIGNAL TECHNICIAN hours Plan Follow up in 4 months Medications: Refilled [LUMBAR BACK BRACE] Use as directed for increasing low back pain 1 ea 0RF M51.36 - Other intervertebral disc degeneration, lumbar region
[2024-09-16 14:43] VITALS: BP 142/88; PULSE 81; O2SAT 96; BMI 21.3
== END 2024-09-16 15:56 | disposition home or self-care (01) ==
LOC: HO.HMCH 14:36
PROVIDERS: PCP Internal Medicine; Visit Provider Internal Medicine
DX: M51.362 Other intervertebral disc degeneration, lumbar region with discogenic back pain and lower extremity pain (principal); J44.9 Chronic obstructive pulmonary disease, unspecified; E78.00 Pure hypercholesterolemia, unspecified; I20.1 Angina pectoris with documented spasm; K21.9 Gastro-esophageal reflux disease without esophagitis; F41.9 Anxiety disorder, unspecified; F81.9 Developmental disorder of scholastic skills, unspecified

== ENCOUNTER → 2024-09-16 14:35 | Outpatient (BNVA) | payer OTHER, SELFPAY | PROVIDERS: PCP Internal Medicine; Visit Provider Internal Medicine | DX: M51.362 Other intervertebral disc degeneration, lumbar region with discogenic back pain and lower extremity pain (principal); J44.9 Chronic obstructive pulmonary disease, unspecified; E78.00 Pure hypercholesterolemia, unspecified; I20.1 Angina pectoris with documented spasm; K21.9 Gastro-esophageal reflux disease without esophagitis; F41.9 Anxiety disorder, unspecified; F81.9 Developmental disorder of scholastic skills, unspecified; Z79.899 Other long term (current) drug therapy; Z13.31 Encounter for screening for depression; Z13.39 Encounter for screening examination for other mental health and behavioral disorders | CPT/HCPCS: 96127; 99212 ==

== ENCOUNTER 2025-02-12 15:38 | Emergency (ER) | payer OTHER, SELFPAY ==
[2025-02-12 15:43] VITALS: BP 149/66; PULSE 89; RESP 18; TEMP 36.6; O2SAT 98; BMI 20.7
--- NOTE | 2025-02-12 15:47 | ED.GENADULT ---
HPI - General Adult General Chief complaint: Eye Problems Stated complaint: left eye irritation; blurry vision; sty on bottom Time Seen by Provider: 02/12/25 18:55 Source: patient, RN notes reviewed and old records reviewed Mode of arrival: ambulatory Limitations: no limitations History of Present Illness ED Provider: CASTRO Patricia HPI narrative: 59-year-old male with medical history of COPD, TIA, lumbar radiculopathy, anxiety, GERD, HLD, NSTEMI, learning disability, presents to the ED due to left eye pain. Patient states he woke up yesterday and noticed pain of his left eye with mild swelling of the lower lid, watery drainage, and blurry vision. Patient denies any foreign body into the eye or working/physical activity that would cause foreign body or particles into the eye. Denies fevers, chest pain, shortness of breath, abdominal pain, nausea, vomiting, headaches, urinary symptoms MD complaint: Left eye pain Related Data Home Medications ?Medication ?Instructions ?Recorded ?Confirmed amlodipine 5 mg tablet 2.5 mg PO DAILY 04/18/23 09/16/24 Previous Rx's ?Medication ?Instructions ?Recorded blood pressure monitor (Blood #1 ea 04/11/23 Pressure Kit) clopidogrel 75 mg tablet 75 mg PO DAILY #90 tabs 04/12/23 bupropion HCl 150 mg 24 hr tablet, 150 mg PO QAM #30 tabs 06/11/23 extended release buspirone 10 mg tablet 10 mg PO BID 30 days #60 tabs 06/11/23 aspirin 81 mg tablet,delayed 81 mg PO DAILY #20 tabs 09/03/23 release fluticasone furoate 200 1 inh inhalation DAILY #60 ea 09/03/23 mcg-vilanterol 25 mcg/dose inhalation powder (Breo Ellipta) qvyjqlumdt-llksulbedlvib-piqsthqc 1 cap PO Q8H PRN headache #30 caps 11/07/23 50 mg-300 mg-40 mg capsule (Fioricet) lidocaine 5 % topical patch 1 patch topical DAILY low back 02/05/24 pain #30 ea gabapentin 600 mg tablet 600 mg PO TID 30 days #90 tabs 05/16/24 LUMBAR BACK BRACE #1 ea 10/23/24 atorvastatin 80 mg tablet 80 mg PO BEDTIME 90 days #90 tabs 11/05/24 Ventolin HFA 90 mcg/actuation 2 puff inhalation Q6H PRN 11/11/24 aerosol inhaler (albuterol sulfate) shortness of breath or wheezing 30 days #18 grams cyclobenzaprine 5 mg tablet 5 mg PO TID PRN for muscle spasm 11/17/24 #90 tabs doxepin 50 mg capsule 50 mg PO BEDTIME #30 caps 01/06/25 bed rail #1 ea 01/30/25 grabber/senior product consultant #1 ea 01/30/25 walker (Ultra-Light Rollator misc) #1 ea 01/30/25 cephalexin 500 mg capsule 500 mg PO QID 7 days #28 caps 02/12/25 erythromycin 5 mg/gram (0.5 %) eye 1 appl ophthalmic (eye) DAILY #3.5 02/12/25 ointment grams Allergies Allergy/AdvReac Type Severity Reaction Status Date / Time tomato (Tomato) Allergy Severe RASH Verified 02/12/25 15:46 umeclidinium (From Incruse Allergy Intermediate Headache Verified 02/12/25 15:46 Ellipta) mushroom Allergy Anaphylaxis Verified 02/12/25 15:46 shrimp Allergy Anaphylaxis Verified 02/12/25 15:46 Review of Systems Review of Systems: Yes all other systems are reviewed and are negative PMFSH Past Medical History Attestation statement: The following information was validated with the patient. Source: old records reviewed and nursing notes reviewed Medical History Learning disability Overweight (BMI 25.0-29.9) Colonoscopy refused Coronary vasospasm GERD without esophagitis Right foot drop Smoker Anxiety Lumbar degenerative disc disease Compression fracture of lumbosacral spine COPD (chronic obstructive pulmonary disease) Surgical History S/P cardiac cath H/O cardiac catheterization History of ankle surgery Previous back surgery Family History Family History Father Lung cancer Mother HTN (hypertension) Diabetes Social History Social History Household Members: None Housing: Apartment Do you presently have visiting nurse or other home services: No Alcohol intake: former Patient Tobacco Use Status: Current everyday Tobacco user Tobacco use type: Cigarette Cigarette Packs Per Day: 0 Cigarettes Per Day: 0 e-Cigarette/Vaping Use: Never Used Second Hand Smoke Exposure: Yes Advance Directives: No Advance Directives Information Provided: No Do you have a plan to hurt others: No Plan service: No Current occupational status: disabled Cognitive needs: No Hearing needs: No Vision needs: No Physical Exam ED Vital Signs: Vital Signs - 24 hr 02/12/25 15:43 Temperature 97.8 F Pulse Rate 89 Respiratory Rate 18 Blood Pressure 149/66 H Pulse Oximetry 98 Oxygen Delivery Method Room Air BMI result Body Mass Index 20.7 GENERAL APPEARANCE: ?AxOx4, generally well-appearing, no acute distress. HEENT: ?NC, AT. MMM. Patient with pain when manipulating the lower eye lid, there is a papule on the inner rim of the lower lid with mild edema, EOMI, no pain with extraocular eye movements, clear conjunctiva, oropharynx clear. NECK: ?Supple without lymphadenopathy.? No stiffness or restricted ROM. HEART:? Normal rate and regular rhythm, normal S1/S2, no m/r/g LUNGS:? CTAB, moving air well. No crackles or wheezes are heard. ABDOMEN: ?Soft, nontender, nondistended with good bowel sounds heard. BACK: No CVAT, no obvious deformity. EXTREMITIES: ?Without cyanosis, clubbing or edema. NEUROLOGICAL: ?Grossly nonfocal. Alert and oriented, moving all 4 extremities. Observed to ambulate with normal gait. Skin: ?Warm and dry without any rash. Course Course Course Narrative: This is a Rapid Medical Examination (RME) performed by Roseanna Caceres PA-C in triage. Full HPI, ROS, assessment and treatment plan per primary provider in the Main ED. Hx: 59 yo M here for eval of L eye pain/irritation, blurred vision on waking this morning. states he was walking a few days ago when a big reggie of wind hit him, unsure if he got anything into the eye. PE/vitals: Erythema noted to periorbital region, noted a stye to left lower eyelid, exquisitely tender to palpation entire periorbital region, not tolerating on exam Plan: Fluorescein/tetracaine, visual acuity, IOP Medications Administered Discontinued Medications Generic Name Dose Route Start Last Admin Trade Name Jose J PRN Reason Stop Dose Admin Acetaminophen 975 mg 02/12/25 19:34 02/12/25 20:44 Acetaminophen 325 Mg Tablet PO 02/12/25 19:35 975 mg ONCE ONE Administration Fluorescein Sodium 1 strip 02/12/25 15:44 02/12/25 22:04 Fluorescein Sodium Strip EYE-LEFT 02/12/25 15:45 Not Given ONCE ONE Tetracaine HCl 1 drop 02/12/25 15:44 02/12/25 22:05 Tetracaine Hcl/Pf 0.5% Oph Amber 4 Ml Drops EYE-LEFT 02/12/25 15:45 Not Given ONCE ONE Medical Decision Making Medical Decision Making MDM Narrative: 59-year-old male with medical history of COPD, TIA, lumbar radiculopathy, anxiety, GERD, HLD, NSTEMI, learning disability, presents to the ED due to left eye pain. Patient states he woke up yesterday and noticed pain of his left eye with mild swelling of the lower lid, watery drainage, and blurry vision. Patient denies any foreign body into the eye or working/physical activity that would cause foreign body or particles into the eye. There is no double vision, patient with mild blurry vision due to watery discharge, patient without pain of extraocular movements, no significant edema noted, no proptosis- global entrapment, orbital cellulitis less likely. I did consult with my attending physican Dr. Giacomo Tang who examined the patient and agreed there was no need for advanced imaging. Patient will be discharged with 7 day course of Keflex q.i.d. and erythromycin ointment. Patient was medicated with 975 mg p.o. Tylenol as he has not taken any medication for pain I counseled patient to follow up with his primary care doctor to ensure resolution of his symptoms. Patient is well enough to go home for self-care today. Patient is in agreement of the plan. Differential Diagnosis Differential Diagnoses: The differential diagnosis associated with the presentation includes Global entrapment Orbital cellulitis Stye Hordeolum Chalazion Admission/Observation Consideration of admission/observation: Escalation of care including admission/observation considered External Record Review External record reviewed: Inpatient record, Office record, Outpatient record and Prior outpatient labs Chronic Conditions Patient?s care impacted by: Hypertension and Other (COPD, NSTEMI,) Discharge Plan Discharge Clinical Impression: Hordeolgayathri Patient Disposition: Home, Self-Care Additional Instructions: You were evaluated today and diagnosed with a stye (hordeolum). Take Keflex four times daily for 7 days as prescribed and complete the full course, even if symptoms improve. Apply erythromycin ophthalmic ointment to the affected eye daily. Use warm compresses to the eyelid for 10?15 minutes, 3?4 times daily to help drainage. Avoid touching or squeezing the stye, discontinue eye makeup and contact lenses until healed, and practice good hand hygiene. You may use acetaminophen or ibuprofen for discomfort if not contraindicated. Follow up with your primary care provider or ophthalmology if symptoms do not improve within a few days. Return to the emergency department for worsening pain, increasing redness or swelling spreading beyond the eyelid, vision changes, fever, inability to open the eye, or signs of an allergic reaction to medications. Prescriptions: New cephalexin 500 mg capsule 500 mg PO QID 7 Days Qty: 28 0RF erythromycin 5 mg/gram (0.5 %) ointment 1 appl ophthalmic (eye) DAILY Qty: 3.5 0RF No Action bupropion HCl 150 mg tablet extended release 24 hr 150 mg PO QAM Qty: 30 1RF buspirone 10 mg tablet 10 mg PO BID 30 Days Qty: 60 1RF oupjekhavn-vqdnvqzojgrcf-tkot [Fioricet] 50-300-40 mg capsule 1 cap PO Q8H PRN (Reason: headache) Qty: 30 0RF gabapentin 600 mg tablet 600 mg PO TID 30 Days Qty: 90 3RF (DME) LUMBAR BACK BRACE See Rx Instructions .Route .MEDSUPPLY Qty: 1 0RF Rx Instructions: Use as directed for increasing low back pain atorvastatin 80 mg tablet 80 mg PO BEDTIME 90 Days Qty: 90 1RF albuterol sulfate [Ventolin HFA] 90 mcg/actuation HFA aerosol inhaler 2 puff inhalation Q6H PRN (Reason: shortness of breath or wheezing) 30 Days Qty: 18 3RF cyclobenzaprine 5 mg tablet 5 mg PO TID PRN (Reason: for muscle spasm) Qty: 90 1RF doxepin 50 mg capsule 50 mg PO BEDTIME Qty: 30 1RF (DME) Ultra-Light Rollator Misc See Rx Instructions .Route Qty: 1 0RF Rx Instructions: As directed (DME) bed rail See Rx Instructions .Route .MEDSUPPLY Qty: 1 0RF Rx Instructions: As directed (DME) grabber/senior product consultant See Rx Instructions .Route .MEDSUPPLY Qty: 1 0RF Rx Instructions: As directed (DME) blood pressure monitor [Blood Pressure Kit] Kit See Rx Instructions .Route Qty: 1 0RF Rx Instructions: As directed clopidogrel 75 mg tablet 75 mg PO DAILY Qty: 90 0RF aspirin 81 mg tablet,delayed release (DR/EC) 81 mg PO DAILY Qty: 20 0RF fluticasone furoate-vilanterol [Breo Ellipta] 200-25 mcg/dose blister with device 1 inh inhalation DAILY Qty: 60 5RF lidocaine 5 % adhesive patch,medicated 1 patch topical DAILY Qty: 30 3RF Rx Instructions: leave on most painful area for up to 12 hrs amlodipine 5 mg tablet 2.5 mg PO DAILY Interventions: ED Discharge Assessment Last Done: 02/12/25 22:05 Discharge Date/Time: 02/12/25 22:05 Print Language: Mozambican
[2025-02-12 22:05] VITALS: BP 149/66; PULSE 89; RESP 18; TEMP 36.6; O2SAT 98
== END 2025-02-12 22:05 | disposition home or self-care (01) ==
PROVIDERS: Emergency Provider Emergency Medicine; PCP Internal Medicine
DX: H00.015 Hordeolum externum left lower eyelid (principal); H02.845 Edema of left lower eyelid; H53.8 Other visual disturbances; F17.210 Nicotine dependence, cigarettes, uncomplicated; Z79.899 Other long term (current) drug therapy
CPT/HCPCS: 99283